=== PATIENT | male | born 1940 | race Caucasian/White ===

== ENCOUNTER → 2021-05-25 | Outpatient (CLI) | payer MEDICARE, OTHER ==
--- NOTE | 2021-05-25 09:12 | NM ---
EXAMINATION TYPE: NM pul vent and perfuse DATE OF EXAM: 05/25/2021 COMPARISON: NONE HISTORY: Shortness of breath. TECHNIQUE: Utilizing inhalation of 67.2 mCi Tc 99m DTPA aerosol and intravenous injection of 5.5 mCi of Tc 99m MAA, ventilation and perfusion images are acquired post injection in multiple projections. FINDINGS: Some scattered small matching defects. There is no evidence of mismatched defects. IMPRESSION: Low scintigraphic evidence for acute pulmonary embolism
== END | disposition home or self-care (01) ==
LOC: RADNMMAIN 07:27
PROVIDERS: ATTEND Family Medicine
DX: I26.99 Other pulmonary embolism without acute cor pulmonale (principal)
CPT/HCPCS: 78582; A9540; A9567

== ENCOUNTER 2021-07-24 10:24 | Inpatient (IN) | payer MEDICARE, OTHER ==
[2021-07-24 11:39] LABS: Basophils % (A) 0 %; Eosinophils # (A) 0.2 k/uL (0-0.7); Eosinophils % (A) 2 %; HCT 51.6 % (39.0-53.0); HGB 16.7 gm/dL (13.0-17.5); Lymphocytes % (A) 12 %; MCH 34.9 pg (25.0-35.0); MCHC 32.3 g/dL (31.0-37.0); Macrocytosis Marked; Mean Platelet Volume 8.3; Monocytes # (A) 0.3 k/uL (0-1.0); Monocytes % (A) 4 %; Neutrophils # (A) 6.9 k/uL (1.3-7.7); Neutrophils % (A) 81 %; Platelet Count 142 k/uL (150-450); RBC 4.77 m/uL (4.30-5.90); RDW 15.1 % (11.5-15.5); WBC 8.5 k/uL (3.8-10.6)
[2021-07-24 11:54] LABS: Calcium 9.6 mg/dL (8.4-10.2); Potassium 4.1 mmol/L (3.5-5.1); Total Bilirubin 1.1 mg/dL (0.2-1.3); Total Protein 7.5 g/dL (6.3-8.2)
[2021-07-24] MEDS ORDERED: LORazepam 2 MG/ML INJ IV STA (12:41)
--- NOTE | 2021-07-24 13:00 | ED ---
General Adult HPI - General Chief complaint: Recheck/Abnormal Lab/Rx Stated complaint: Abd labs Time Seen by Provider: 07/24/21 12:00 Source: patient, family, RN notes reviewed, old records reviewed Mode of arrival: wheelchair Limitations: no limitations - History of Present Illness Initial comments: This is a 81-year-old male who presents emergency Department because his doctor called him and told him he had some abnormal liver and abnormal kidney labs. Patient states she's got cancer of the tongue and he states he was post have surgery but he is too sick to get it. Patient states he has no symptoms today. Patient denies any fever chills or cough per patient denies any abdominal pain. Patient has nausea vomiting. Patient denies any chest pain palpitations difficulty breathing or shortness of breath. Patient denies any dysuria hematuria urinary frequency. Patient denies any headache patient denies numbness weakness per patient denies any lightheadedness or dizziness. - Related Data Home Medications Medication Instructions Recorded Confirmed Acetaminophen [Tylenol 8 Hour] 1,300 mg PO BID 07/24/21 07/24/21 Albuterol Sulfate [Proair Hfa] 2 puff INHALATION RT-Q4H PRN 07/24/21 07/24/21 Allopurinol [Zyloprim] 100 mg PO BID 07/24/21 07/24/21 Aspirin EC [Ecotrin Low Dose] 81 mg PO DAILY 07/24/21 07/24/21 Atorvastatin [Lipitor] 40 mg PO DAILY 07/24/21 07/24/21 Cyanocobalamin [Vitamin B-12] 500 mcg PO DAILY 07/24/21 07/24/21 Dorzolamide 2% [Trusopt 2%] 1 drop BOTH EYES BID 07/24/21 07/24/21 Fluconazole [Diflucan] 100 mg PO DAILY 07/24/21 07/24/21 Furosemide [Lasix] 40 mg PO BID 07/24/21 07/24/21 Latanoprost/Pf [Latanoprost 0.005% 1 drop BOTH EYES HS 07/24/21 07/24/21 Eye Drop] Magnesium Oxide 400 mg PO HS 07/24/21 07/24/21 Metoprolol Succinate (ER) [Toprol 100 mg PO DAILY 07/24/21 07/24/21 Xl] Midodrine HCl [ProAmatine] 10 mg PO TID 07/24/21 07/24/21 Multivitamins, Thera [Multivitamin 1 tab PO DAILY 07/24/21 07/24/21 (formulary)] [place]-3 Fatty Acids/Fish Oil [Fish 1 cap PO DAILY 07/24/21 07/24/21 Oil 1,000 mg Softgel] Pantoprazole [Protonix] 40 mg PO BID 07/24/21 07/24/21 Umeclidinium Brm/Vilanterol Tr 1 puff INHALATION RT-DAILY 07/24/21 07/24/21 [Anoro Ellipta 62.5-25 Mcg INH] metOLazone [Zaroxolyn] 2.5 mg PO MOTH 07/24/21 07/24/21 Allergies Allergy/AdvReac Type Severity Reaction Status Date / Time Penicillins Allergy Rash/Hives Verified 07/24/21 10:55 shellfish derived [Shellfish] Allergy Nausea & Verified 07/24/21 10:56 Vomiting Review of Systems ROS Statement: Those systems with pertinent positive or pertinent negative responses have been documented in the HPI. ROS Other: All systems not noted in ROS Statement are negative. Past Medical History Past Medical History: Chest Pain / Angina, COPD, Diabetes Mellitus, Hypertension History of Any Multi-Drug Resistant Organisms: None Reported Past Surgical History: Orthopedic Surgery Additional Past Surgical History / Comment(s): colostomy, TURP, cataracts Past Psychological History: No Psychological Hx Reported Smoking Status: Never smoker Past Alcohol Use History: None Reported Past Drug Use History: None Reported General Exam - General Exam Comments Initial Comments: GENERAL: Patient is well-developed and well-nourished. Patient is nontoxic and well- hydrated and is in no acute distress. ENT: Neck is soft and supple. No significant lymphadenopathy is noted. Oropharynx is clear. Moist mucous membranes. Neck has full range of motion without eliciting any pain. EYES: The sclera were anicteric and conjunctiva were pink and moist. Extraocular movements were intact and pupils were equal round and reactive to light. Eyelids were unremarkable. PULMONARY: Unlabored respirations. Good breath sounds bilaterally. No audible rales rhonchi or wheezing was noted. CARDIOVASCULAR: There is a regular rate and rhythm without any murmurs gallops or rubs. ABDOMEN: Soft and nontender with normal bowel sounds. SKIN: Skin is clear with no lesions or rashes and otherwise unremarkable. NEUROLOGIC: Patient is alert and oriented x3. Cranial nerves II through XII are grossly intact. Motor and sensory are also intact. Normal speech, volume and content. Symmetrical smile. MUSCULOSKELETAL: Normal extremities with adequate strength and full range of motion. LYMPHATICS: No significant lymphadenopathy is noted PSYCHIATRIC: Normal psychiatric evaluation. Limitations: no limitations Course Vital Signs 07/24/21 10:48 Temperature 98.2 F Pulse Rate 107 H Respiratory 18 Rate Blood Pressure 116/67 O2 Sat by Pulse 96 Oximetry Medical Decision Making - Medical Decision Making EKG shows sinus rhythm at 96 bpm NV interval 290 QRS is 85 Q-T interval like it is 294 QTC is 347. Patient's EKG shows ST segment depression V4 V5 and V6 with T-wave inversions in the same leads. Patient also has T-wave inversions in inferior leads II, III, and F aVF. I spoke with Dr. centeno about the patient and the elevated troponin he agreed to see the patient on consult however he did not think there was much close to do at this point. I started the patient on heparin. Chest x-ray shows no acute abnormality. I spoke with Dr. Morejon she agreed to admit the patient admitted the patient wrote admitting orders. - Lab Data Result diagrams: 07/24/21 11:06 07/24/21 11:06 Lab Results 07/24/21 07/24/21 07/24/21 Range/Units 11:06 11:06 11:06 WBC 8.5 (3.8-10.6) k/uL RBC 4.77 (4.30-5.90) m/uL Hgb 16.7 (13.0-17.5) gm/dL Hct 51.6 (39.0-53.0) % MCV 108.0 H (80.0-100.0) fL MCH 34.9 (25.0-35.0) pg MCHC 32.3 (31.0-37.0) g/dL RDW 15.1 (11.5-15.5) % Plt Count 142 L (150-450) k/uL MPV 8.3 Neutrophils % 81 % Lymphocytes % 12 % Monocytes % 4 % Eosinophils % 2 % Basophils % 0 % Neutrophils # 6.9 (1.3-7.7) k/uL Lymphocytes # 1.0 (1.0-4.8) k/uL Monocytes # 0.3 (0-1.0) k/uL Eosinophils # 0.2 (0-0.7) k/uL Basophils # 0.0 (0-0.2) k/uL Manual Slide Review Performed Macrocytosis Marked A PT (9.0-12.0) sec INR (<1.2) APTT (22.0-30.0) sec Sodium 139 (137-145) mmol/L Potassium 4.1 (3.5-5.1) mmol/L Chloride 104 (98-107) mmol/L Carbon Dioxide 22 (22-30) mmol/L Anion Gap 13 mmol/L BUN 42 H (9-20) mg/dL Creatinine 1.58 H (0.66-1.25) mg/dL Est GFR (CKD-EPI)AfAm 48 (>60 ml/min/1.73 sqM) Est GFR (CKD-EPI)NonAf 41 (>60 ml/min/1.73 sqM) Glucose 158 H (74-99) mg/dL Calcium 9.6 (8.4-10.2) mg/dL Total Bilirubin 1.1 (0.2-1.3) mg/dL AST 56 (17-59) U/L ALT 107 H (4-49) U/L Alkaline Phosphatase 104 (38-126) U/L Troponin I 0.238 H* (0.000-0.034) ng/mL Total Protein 7.5 (6.3-8.2) g/dL Albumin 4.0 (3.5-5.0) g/dL Lipase 368 H (23-300) U/L 07/24/21 Range/Units 13:26 WBC (3.8-10.6) k/uL RBC (4.30-5.90) m/uL Hgb (13.0-17.5) gm/dL Hct (39.0-53.0) % MCV (80.0-100.0) fL MCH (25.0-35.0) pg MCHC (31.0-37.0) g/dL RDW (11.5-15.5) % Plt Count (150-450) k/uL MPV Neutrophils % % Lymphocytes % % Monocytes % % Eosinophils % % Basophils % % Neutrophils # (1.3-7.7) k/uL Lymphocytes # (1.0-4.8) k/uL Monocytes # (0-1.0) k/uL Eosinophils # (0-0.7) k/uL Basophils # (0-0.2) k/uL Manual Slide Review Macrocytosis PT 11.0 (9.0-12.0) sec INR 1.0 (<1.2) APTT 23.6 (22.0-30.0) sec Sodium (137-145) mmol/L Potassium (3.5-5.1) mmol/L Chloride (98-107) mmol/L Carbon Dioxide (22-30) mmol/L Anion Gap mmol/L BUN (9-20) mg/dL Creatinine (0.66-1.25) mg/dL Est GFR (CKD-EPI)AfAm (>60 ml/min/1.73 sqM) Est GFR (CKD-EPI)NonAf (>60 ml/min/1.73 sqM) Glucose (74-99) mg/dL Calcium (8.4-10.2) mg/dL Total Bilirubin (0.2-1.3) mg/dL AST (17-59) U/L ALT (4-49) U/L Alkaline Phosphatase (38-126) U/L Troponin I (0.000-0.034) ng/mL Total Protein (6.3-8.2) g/dL Albumin (3.5-5.0) g/dL Lipase (23-300) U/L Critical Care Time Critical Care Time: Yes Total Critical Care Time: 35 Disposition Clinical Impression: Non-STEMI (non-ST elevated myocardial infarction) Disposition: ADMITTED IP TO THIS [facility] Time of Disposition: 13:56
[2021-07-24] MEDS ORDERED: HEPARIN SODIUM 1,000 UN/ML (10ML VL) IV ONE (13:16)
--- NOTE | 2021-07-24 13:28 | XR ---
EXAMINATION TYPE: XR chest 2V DATE OF EXAM: 07/24/2021 COMPARISON: 05/24/2021 HISTORY: 81 year-old male shortness of breath, difficulty breathing TECHNIQUE: Frontal and lateral views FINDINGS: Heart borderline to mildly enlarged. Mild hyperinflation. Interstitial prominence. Overall interstiti al changes show improvement from prior. Residual Periphery of the right midlung. No sizable pleural effusion. Left base underpenetrated and not well a ssessed. Right-sided rotator cuff arthropathy. Chronic full-thickness rotator cuff tear on the left. IMPRESSION: 1. Borderline to mild cardiomegaly. 2. Suspect background COPD. 3. Interstitial changes show some improvement from prior exam. Correlate to exclude fluid overload st ate and for possible bronchitis or chronic asthma. 4. Some patchy scarring versus infiltrate remains at the right mid lung.
[2021-07-24] MEDS ORDERED: HEPARIN SOD,PORK IN 0.45% NACL 25,000 UNIT in 0.45% NACL 1 250ML.BAG IV SCH (13:30)
[2021-07-24 13:45] LABS: Partial Thromboplastin Time 23.6 sec (22.0-30.0)
[2021-07-24] MEDS ORDERED: NITROGLYCERIN SL TABS 0.4 MG TAB SUBLINGUAL PRN (13:56)
[2021-07-24] MEDS ORDERED: ALBUTEROL NEBULIZED 2.5 MG/3 ML INHALATION PRN (15:02)
--- NOTE | 2021-07-24 15:28 | P.HPIM ---
History of Present Illness H&P Date: 07/24/21 81 years old male patient of Dr. Patrick with past medical history of hypertension, COPD on 2 L of oxygen, type 2 diabetes, recent diagnosis of tongue cancer currently in process of getting treatment, history of bowel obstruction status post colostomy 3 years ago comes in with abnormal labs. She was called by the primary care physician to determine to the ER for worsening kidney function. Patient denies any dysuria or increased frequency or hematuria. 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 Patient denies any decrease in urination. He denies any dizziness, chest pain, fever or chills. He does endorse shortness of breath on exertion U weeks. Patient had outpatient workup including a VQ scan which had low probability of pulmonary embolism. Ago. He also underwent stress test 4-[address] Horne for possible tongue resection for his tongue cancer. On evaluation in the ER he was noted to have troponin 0.238, sodium 139 potassium 4.1 bicarb 22 BUN 42 creatinine 1.58 liver enzymes are normal lipase mildly elevated at 368 INR normal WBC 8.5 MCV 108 platelets of 142. Hold most pronounced in the V4 V5 and V6. Cardiology consult placed. Patient will be initiated on heparin drip. Retroperitoneal ultrasound ordered. ROS Constitutional: Denies chills, Denies fever, endorses weakness and lethargy Eyes: denies decreased vision, denies diplopia, denies discharge, denies pain Ears: deny: decreased hearing Ears, nose, mouth and throat: Denies dental pain, Denies headache, Denies nasal discharge, Denies nose pain Cardiovascular: Denies chest pain, endorses decreased exercise tolerance, Denies edema, Denies high blood pressure, Denies irregular heart beat, Denies palpitations, Denies paroxysmal nocturnal dyspnea, Denies rapid heart beat, endorses shortness of breath Respiratory: Denies congestion, Denies cough, Denies cough with sputum, endorses dyspnea on exertion Denies home oxygen, Denies wheezing Gastrointestinal: Denies abdominal pain, Denies change in bowel habits, Denies coffee ground emesis, Denies early satiety, Denies excessive gas, Denies heartburn, Denies hematemesis, Denies hematochezia, Denies loss of appetite, Denies nausea, Denies vomiting Genitourinary: Denies dysuria, Denies flank pain, Denies kidney stones, Denies menorrhagia, Denies urgency, Denies urinary frequency Musculoskeletal: Denies gait dysfunction, Denies limitation of motion, Denies morning stiffness, Denies muscle cramps Integumentary: Denies rash, Denies wounds, Denies brittle nails, Denies change in hair/nails, Denies darkening of skin Neurological: Denies balance difficulties, Denies change in speech, Denies double vision, Denies gait dysfunction, Denies loss of vision, Denies motor disturbance, Denies numbness, Denies paralysis, Denies paresthesias, Denies seizures Psychiatric: Denies anxiety, Denies depression Endocrine: Denies excessive sweating, Denies excessive thirst, Denies high blood sugars, Denies palpitations Hematologic/Lymphatic: Denies easy bruising, Denies lymphadenopathy Social history Nonsmoker nondrinker no illicit drug use no marijuana use Family history Father at 91 of old age Mother had 65 from diabetes related complications 1 brother at 90 no medical no known medical reasons Children are healthy 4 daughters with no malignant significant medical problems Physical exam - Constitutional General appearance: cooperative, no acute distress, obese mole on forehead , dark 1 cm in size , - EENT Eyes: anicteric sclerae, PERRLA, normal appearance ENT: hearing grossly normal - Neck Neck: no lymphadenopathy, normal ROM, no other, no rigidity, no stridor, no thyromegaly - Respiratory Respiratory: bilateral: CTA, negative: diminished, dullness, rales, rhonchi - Cardiovascular Rhythm Irregularly irregular Heart s: normal: S1, S2 Abnormal Heart Sounds: no systolic murmur, no diastolic murmur, no rub, no S3 Gallop, no S4 Gallop, no click, no other - Gastrointestinal General gastrointestinal: normal bowel sounds, soft Colostomy in the right lower quadrant with stool output - Integumentary Integumentary: no rash - Neurologic NeurologicNo gross motor sensory deficit - Musculoskeletal Musculoskeletal: ga not assessed , strength equal bilaterally - Psychiatric Psychiatric: A&O x's 3, appropriate affect Assessment and plan #1 acute troponin elevation with EKG suggestive of this to depression and T wave changes. Initiate patient on heparin drip. Cardiology consulted. Resume medication including metoprolol succinate 100 mg by mouth daily. Aspirin initiate 325 mg by mouth daily #2 acute kidney injury over chronic kidney disease stage III. Retroperitoneal ultrasound ordered. Likely secondary to diabetes. Monitor urine output. Avoid nephrotoxic agent. Hold metolazone and Lasix #3 bowel obstruction status post colostomy. Continue to monitor output. No melena or dark stools noted. Hemoglobin stable #4 COPD not in exacerbation on 2 L oxygen. Chest x-ray negative for any acute abnormality. Continue albuterol and a normal relative daily #5 tongue cancer, follow surgery and oncology plan for tongue resection. PET scan completed with no other metastasis from the cancer. Follow outpatient with oncology #6 hyperlipidemia continue Lipitor at 40 mg by mouth daily #7 GERD continue Protonix 40 twice a day #8 gout continue allopurinol 100 twice a day #9 CODE STATUS full code #10 DVT prophylaxis on heparin drip #11 disposition patient need at least 1-2 inpatient nights for stabilization. Past Medical History Past Medical History: Chest Pain / Angina, COPD, Diabetes Mellitus, Hypertension History of Any Multi-Drug Resistant Organisms: None Reported Past Surgical History: Orthopedic Surgery Additional Past Surgical History / Comment(s): colostomy, TURP, cataracts Past Psychological History: No Psychological Hx Reported Smoking Status: Never smoker Past Alcohol Use History: None Reported Past Drug Use History: None Reported Medications and Allergies Home Medications Medication Instructions Recorded Confirmed Type Acetaminophen [Tylenol 8 Hour] 1,300 mg PO BID 07/24/21 07/24/21 History Albuterol Sulfate [Proair Hfa] 2 puff INHALATION RT-Q4H PRN 07/24/21 07/24/21 History Allopurinol [Zyloprim] 100 mg PO BID 07/24/21 07/24/21 History Aspirin EC [Ecotrin Low Dose] 81 mg PO DAILY 07/24/21 07/24/21 History Atorvastatin [Lipitor] 40 mg PO DAILY 07/24/21 07/24/21 History Cyanocobalamin [Vitamin B-12] 500 mcg PO DAILY 07/24/21 07/24/21 History Dorzolamide 2% [Trusopt 2%] 1 drop BOTH EYES BID 07/24/21 07/24/21 History Fluconazole [Diflucan] 100 mg PO DAILY 07/24/21 07/24/21 History Furosemide [Lasix] 40 mg PO BID 07/24/21 07/24/21 History Latanoprost/Pf [Latanoprost 0.005% 1 drop BOTH EYES HS 07/24/21 07/24/21 History Eye Drop] Magnesium Oxide 400 mg PO HS 07/24/21 07/24/21 History Metoprolol Succinate (ER) [Toprol 100 mg PO DAILY 07/24/21 07/24/21 History Xl] Midodrine HCl [ProAmatine] 10 mg PO TID 07/24/21 07/24/21 History Multivitamins, Thera [Multivitamin 1 tab PO DAILY 07/24/21 07/24/21 History (formulary)] [place]-3 Fatty Acids/Fish Oil [Fish 1 cap PO DAILY 07/24/21 07/24/21 History Oil 1,000 mg Softgel] Pantoprazole [Protonix] 40 mg PO BID 07/24/21 07/24/21 History Umeclidinium Brm/Vilanterol Tr 1 puff INHALATION RT-DAILY 07/24/21 07/24/21 History [Anoro Ellipta 62.5-25 Mcg INH] metOLazone [Zaroxolyn] 2.5 mg PO MOTH 07/24/21 07/24/21 History Allergies Allergy/AdvReac Type Severity Reaction Status Date / Time Penicillins Allergy Rash/Hives Verified 07/24/21 10:55 shellfish derived [Shellfish] Allergy Nausea & Verified 07/24/21 10:56 Vomiting Physical Exam Vitals: Vital Signs Temp Pulse Resp BP Pulse Ox 07/24/21 10:48 98.2 F 107 H 18 116/67 96 Intake and Output 07/24/21 07/24/21 07/24/21 06:59 14:59 22:59 Other: Weight 93.894 kg Results CBC & Chem 7: 07/24/21 11:06 07/24/21 11:06 Labs: Abnormal Lab Results - Last 24 Hours (Table) 07/24/21 07/24/21 07/24/21 Range/Units 11:06 11:06 11:06 MCV 108.0 H (80.0-100.0) fL Plt Count 142 L (150-450) k/uL Macrocytosis Marked A BUN 42 H (9-20) mg/dL Creatinine 1.58 H (0.66-1.25) mg/dL Glucose 158 H (74-99) mg/dL ALT 107 H (4-49) U/L Troponin I 0.238 H* (0.000-0.034) ng/mL Lipase 368 H (23-300) U/L
[2021-07-24] MEDS ORDERED: metOLazone 2.5 MG TAB PO SCH (15:30)
--- NOTE | 2021-07-24 16:20 | US ---
EXAMINATION TYPE: US renals and bladder DATE OF EXAM: 07/24/2021 COMPARISON: NONE CLINICAL HISTORY: GENNARO on ckd. abn labs, no symptoms EXAM MEASUREMENTS: Right Kidney: 13.5 x 5.2 x 5.7 cm Left Kidney: 12.8 x 4.9 x 5.7 cm Right Kidney: inferior pole cyst 2.4 x 2.9 x 1.5cm Left Kidney: No hydronephrosis or masses seen Bladder: not fully distended There is no evidence for hydronephrosis at this point in time. No nephrolithiasis is seen. No raj s are identified. Difficult to exclude some low-level internal echoes within the urinary bladder. Cor tical measured differentiation is maintained. IMPRESSION: Probable cyst lower pole right kidney, not clearly simple cyst, consider follow-up. Difficult to excl ude debris within the urinary bladder, correlate with urinalysis
[2021-07-24] MEDS: FUROSEMIDE 40 MG TAB PO SCH (16:25)
[2021-07-24] MEDS: IPRATROPIUM 0.5 MG/2.5 ML NEBU INHALATION SCH ×2 (16:48→20:43)
[2021-07-24] MEDS: NITROGLYCERIN OINT 1 INCH/GM PACKET TOPICAL SCH (17:48)
[2021-07-24] MEDS: PANTOPRAZOLE 40 MG TABLET PO SCH (17:48)
[2021-07-24] MEDS: MIDODRINE 5 MG TAB PO SCH (17:48)
[2021-07-24 20:16] LABS: Glucose,Whole Blood 165 mg/dL (75-99)
[2021-07-24] MEDS ORDERED: ACETAMINOPHEN TAB 500 MG TAB PO PRN (21:00)
[2021-07-24] MEDS ORDERED: LATANOPROST 0.005% OPHTH DROPS 2.5 ML BTL BOTH EYES SCH (21:00)
[2021-07-24] MEDS: allopurinoL 100 MG TAB PO SCH (21:37)
[2021-07-24] MEDS: MAGNESIUM OXIDE 400 MG TAB PO SCH ×2 (21:37→21:43)
[2021-07-24] MEDS: DORZOLAMIDE HCL 2% DROPS 10 ML BTL BOTH EYES SCH (21:38)
[2021-07-25] MEDS: NITROGLYCERIN OINT 1 INCH/GM PACKET TOPICAL SCH ×3 (00:10→12:26)
[2021-07-25 06:14] LABS: Glucose,Whole Blood 106 mg/dL (75-99)
[2021-07-25] MEDS: PANTOPRAZOLE 40 MG TABLET PO SCH (06:47)
[2021-07-25] MEDS: MIDODRINE 5 MG TAB PO SCH ×2 (06:47→12:29)
[2021-07-25] MEDS ORDERED: FORMOTEROL FUMARATE 20 MCG/2 ML NEBU INHALATION SCH (08:00)
[2021-07-25 08:26] LABS: Albumin 3.5 g/dL (3.5-5.0); Calcium 9.3 mg/dL (8.4-10.2); Total Bilirubin 1.2 mg/dL (0.2-1.3); Total Protein 6.9 g/dL (6.3-8.2)
[2021-07-25 08:29] LABS: Potassium 3.9 mmol/L (3.5-5.1)
[2021-07-25 08:54] VITALS: TEMP 98.1
[2021-07-25] MEDS ORDERED: NON FORMULARY DRUG (Omega-3 Fatty Acids/Fish Oil [Fish Oil 1,000 Mg Softgel] 1 EACH Capsul PO SCH (09:00)
[2021-07-25] MEDS ORDERED: NON FORMULARY DRUG (Aspirin Ec 81 MG Tablet) PO SCH (09:00)
[2021-07-25] MEDS ORDERED: METOPROLOL SUCCINATE (ER) 100 MG TAB.ER.24H PO SCH (09:00)
[2021-07-25] MEDS ORDERED: MULTIVITAMINS, THERA 1 EACH TAB PO SCH (09:00)
[2021-07-25] MEDS ORDERED: CYANOCOBALAMIN 500 MCG TAB PO SCH (09:00)
[2021-07-25] MEDS ORDERED: ATORVASTATIN 40 MG TAB PO SCH (09:00)
[2021-07-25] MEDS ORDERED: ASPIRIN 325 MG TAB PO SCH (09:00)
[2021-07-25] MEDS: allopurinoL 100 MG TAB PO SCH (09:05)
[2021-07-25] MEDS: FUROSEMIDE 40 MG TAB PO SCH (09:05)
[2021-07-25] MEDS: IPRATROPIUM 0.5 MG/2.5 ML NEBU INHALATION SCH ×3 (09:09→16:17)
[2021-07-25] MEDS: DORZOLAMIDE HCL 2% DROPS 10 ML BTL BOTH EYES SCH (09:11)
[2021-07-25 11:52] LABS: Glucose,Whole Blood 107 mg/dL (75-99)
--- NOTE | 2021-07-25 11:59 | P.CRDCN ---
History of Present Illness History of present illness: HISTORY OF PRESENTING ILLNESS This is a pleasant 81-year-old male past medical history significant for COPD, chronic hypoxic respiratory failure, hypertension, dyslipidemia, gout tobacco use. He follows in the office with Dr. Moody. We have been asked to see in consultation for elevated troponin. Patient presents emergency department stating that his primary care provider Dr. Patrick told him to come to the ER due to his abnormal liver and kidney function labs. He has no complaints and no symptoms. Overall he feels well. He denies any chest pain, shortness of breath, lightheadedness, dizziness, palpitations, syncope or near syncope. He denies any symptoms of orthopnea or PND. She denies any diaphoresis, nausea, vomiting, abdominal pain, fever, cough, chills. DIAGNOSTICS EKG reviewed with Dr. Moody reveals sinus rhythm, heart rate 96, T wave inversions in inferior leads and V3 through V6. Per Dr. Moody chronic changes. Echocardiogram in the office 05/19/2021 revealed normal LVEF, severe pulmonary hypertension severe tricuspid regurgitation, dilated RV Lexiscan stress test 05/2021 was technically difficult study. Telemetry tracings indicate sinus mechanism Chest xray no acute cardiopulmonary process, background COPD, interstitial changes show some improvement from prior exam. Some patchy scarring versus alternate right mid lung Laboratory reviewed, troponin 0.23, 0.27, 0.29, sodium 135, potassium 3.9, BUN 38, serum creatinine 1.5 Current cardiac medications include metoprolol succinate 100 mg daily, midodrine, metolazone, aspirin 81 mg daily, Lasix 40 mg twice a day, atorvastatin 40 mg daily REVIEW OF SYSTEMS At the time of my exam: CONSTITUTIONAL: Denies fever or chills. CARDIOVASCULAR: Denies chest pain, shortness of breath, orthopnea, PND or palpitations. RESPIRATORY: Denies cough. GASTROINTESTINAL: Denies abdominal pain, diarrhea, constipation, nausea or vomiting. MUSCULOSKELETAL: Denies myalgias. NEUROLOGIC: Denies numbness, tingling, headacbe or weakness. ENDOCRINE: Denies fatigue, weight change, polydipsia or polyurina. GENITOURINARY: Denies burning, hematuria or urgency with micturation. HEMATOLOGIC: Denies history of anemia or bleeding. PHYSICAL EXAMINATION Vitals reviewed. CONSTITUTIONAL: No apparent distress. HEENT: Head is normocephalic. Pupils are equal, round. Sclerae anicteric. Mucous membranes of the mouth are moist. No JVD. No carotid bruit. CHEST EXAMINATION: Lungs are clear to auscultation. No chest wall tenderness is noted on palpation or with deep breathing. HEART EXAMINATION: Regular rate and rhythm. S1, S2 heard. Systolic murmur noted. ABDOMEN: Soft, nontender. Positive bowel sounds. EXTREMITIES: 2+ peripheral pulses, no lower extremity edema and no calf tenderness. NEUROLOGIC EXAMINATION: Patient is awake, alert and oriented x3. ASSESSMENT Elevated troponin, likely due to acute on chronic kidney disease, no evidence of acute coronary syndrome COPD Hypertension Dyslipidemia History of gout PLAN EKG and troponins reviewed with Dr. Moody. Patient asymptomatic, hemodynamically stable, no evidence of acute coronary syndrome at this time. No need to repeat Echo with recent in the office on 05/2021 as noted above. Continue home cardiac medications. From a cardiology perspective, no further inpatient workup at this time. Follow up outpatient with Dr. Moody. Nurse practitioner note has been reviewed by physician. Signing provider agrees with the documented findings, assessment, and plan of care. 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 History of Any Multi-Drug Resistant Organisms: None Reported Past Surgical History: Bowel Resection, Joint Replacement, Prostate Surgery Additional Past Surgical History / Comment(s): Colostomy, TURP, R total knee arthroplasty, bilateral cataract removals/lens implants. Past Anesthesia/Blood Transfusion Reactions: No Reported Reaction Smoking Status: Former smoker - Past Family History Father Additional Family Medical History / Comment(s): Father lived to be 91 yrs old. He had a pacer. Mother Family Medical History: Diabetes Mellitus Additional Family Medical History / Comment(s): kidney cancer Medications and Allergies Home Medications Medication Instructions Recorded Confirmed Type Acetaminophen [Tylenol 8 Hour] 1,300 mg PO BID 07/24/21 07/24/21 History Albuterol Sulfate [Proair Hfa] 2 puff INHALATION RT-Q4H PRN 07/24/21 07/24/21 History Allopurinol [Zyloprim] 100 mg PO BID 07/24/21 07/24/21 History Aspirin EC [Ecotrin Low Dose] 81 mg PO DAILY 07/24/21 07/24/21 History Atorvastatin [Lipitor] 40 mg PO DAILY 07/24/21 07/24/21 History Cyanocobalamin [Vitamin B-12] 500 mcg PO DAILY 07/24/21 07/24/21 History Dorzolamide 2% [Trusopt 2%] 1 drop BOTH EYES BID 07/24/21 07/24/21 History Fluconazole [Diflucan] 100 mg PO DAILY 07/24/21 07/24/21 History Furosemide [Lasix] 40 mg PO BID 07/24/21 07/24/21 History Latanoprost/Pf [Latanoprost 0.005% 1 drop BOTH EYES HS 07/24/21 07/24/21 History Eye Drop] Magnesium Oxide 400 mg PO HS 07/24/21 07/24/21 History Metoprolol Succinate (ER) [Toprol 100 mg PO DAILY 07/24/21 07/24/21 History Xl] Midodrine HCl [ProAmatine] 10 mg PO TID 07/24/21 07/24/21 History Multivitamins, Thera [Multivitamin 1 tab PO DAILY 07/24/21 07/24/21 History (formulary)] [place]-3 Fatty Acids/Fish Oil [Fish 1 cap PO DAILY 07/24/21 07/24/21 History Oil 1,000 mg Softgel] Pantoprazole [Protonix] 40 mg PO BID 07/24/21 07/24/21 History Umeclidinium Brm/Vilanterol Tr 1 puff INHALATION RT-DAILY 07/24/21 07/24/21 History [Anoro Ellipta 62.5-25 Mcg INH] metOLazone [Zaroxolyn] 2.5 mg PO MOTH 07/24/21 07/24/21 History Allergies Allergy/AdvReac Type Severity Reaction Status Date / Time Penicillins Allergy Rash/Hives Verified 07/24/21 10:55 shellfish derived [Shellfish] Allergy Nausea & Verified 07/24/21 10:56 Vomiting Physical Exam Vitals: Vital Signs Temp Pulse Pulse Resp BP BP Pulse Ox 07/25/21 09:24 84 07/25/21 09:09 88 07/25/21 08:52 98.1 F 110 H 16 101/65 93 L 07/25/21 06:46 93/58 07/25/21 04:00 98.4 F 106 H 18 101/65 93 L 07/24/21 23:33 98.0 F 104 H 16 94/55 94 L 07/24/21 19:57 97.5 F L 07/24/21 19:49 100 18 100/63 96 07/24/21 18:35 88 16 106/71 96 07/24/21 17:05 98.4 F 86 18 116/70 98 07/24/21 16:48 86 07/24/21 15:17 96 18 109/63 95 Intake and Output 07/24/21 07/25/21 07/25/21 22:59 06:59 14:59 Output Total 700 600 250 Balance -700 -600 -250 Output: Gastric Drainage 200 Urine 500 300 250 Stool 300 Other: Weight 93.894 kg 89 kg Results 07/24/21 11:06 07/25/21 06:09 Cardiac Enzymes 07/24/21 07/24/21 07/24/21 Range/Units 11:06 11:06 14:53 AST 56 (17-59) U/L Troponin I 0.238 H* 0.275 H* (0.000-0.034) ng/mL 07/24/21 07/25/21 Range/Units 18:13 06:09 AST 63 H (17-59) U/L Troponin I 0.294 H* (0.000-0.034) ng/mL Coagulation 07/24/21 07/24/21 07/25/21 Range/Units 13:26 21:20 05:53 PT 11.0 (9.0-12.0) sec APTT 23.6 61.7 H 59.7 H (22.0-30.0) sec CBC 07/24/21 Range/Units 11:06 WBC 8.5 (3.8-10.6) k/uL RBC 4.77 (4.30-5.90) m/uL Hgb 16.7 (13.0-17.5) gm/dL Hct 51.6 (39.0-53.0) % Plt Count 142 L (150-450) k/uL Comprehensive Metabolic Panel 07/24/21 07/25/21 Range/Units 11:06 06:09 Sodium 139 135 L (137-145) mmol/L Potassium 4.1 3.9 (3.5-5.1) mmol/L Chloride 104 104 (98-107) mmol/L Carbon Dioxide 22 23 (22-30) mmol/L BUN 42 H 38 H (9-20) mg/dL Creatinine 1.58 H 1.53 H (0.66-1.25) mg/dL Glucose 158 H 111 H (74-99) mg/dL Calcium 9.6 9.3 (8.4-10.2) mg/dL AST 56 63 H (17-59) U/L ALT 107 H 92 H (4-49) U/L Alkaline Phosphatase 104 103 (38-126) U/L Total Protein 7.5 6.9 (6.3-8.2) g/dL Albumin 4.0 3.5 (3.5-5.0) g/dL Current Medications Generic Name Dose Route Start Last Admin Trade Name Freq PRN Reason Stop Dose Admin Acetaminophen 1,000 mg 07/24/21 21:00 Acetaminophen Tab 500 Mg Tab PO BID PRN Pain Albuterol Sulfate 2.5 mg 07/24/21 15:02 Albuterol Nebulized 2.5 Mg/3 Ml INHALATION RT-Q4H PRN Shortness Of Breath Allopurinol 100 mg 07/24/21 21:00 07/25/21 09:05 Allopurinol 100 Mg Tab PO 100 mg BID MARTINA Administration Aspirin 81 mg 07/26/21 09:00 Aspirin 81 Mg PO DAILY MARTINA Atorvastatin Calcium 40 mg 07/25/21 09:00 07/25/21 09:05 Atorvastatin 40 Mg Tab PO 40 mg DAILY MARTINA Administration Cyanocobalamin 500 mcg 07/25/21 09:00 07/25/21 09:06 Cyanocobalamin 500 Mcg Tab PO 500 mcg DAILY MARTINA Administration Dorzolamide HCl 1 drops 07/24/21 21:00 07/25/21 09:11 Dorzolamide Hcl 2% Drops 10 Ml Btl BOTH EYES 1 drops BID MARTINA Administration Formoterol Fumarate 20 mcg 07/25/21 08:00 07/25/21 09:09 Formoterol Fumarate 20 Mcg/2 Ml Nebu INHALATION 20 mcg RT-BID MARTINA Administration Furosemide 40 mg 07/24/21 16:00 07/25/21 09:05 Furosemide 40 Mg Tab PO 40 mg BID@0900,1600 MARTINA Administration Ipratropium [place] 0.5 mg 07/24/21 16:00 07/25/21 09:09 Ipratropium 0.5 Mg/2.5 Ml Nebu INHALATION 0.5 mg RT-QID MARTINA Administration Latanoprost 1 drops 07/24/21 21:00 07/24/21 21:37 Latanoprost 0.005% Ophth Drops 2.5 Ml Btl BOTH EYES 1 drops HS MARTINA Administration Magnesium Oxide 400 mg 07/24/21 21:00 07/24/21 21:43 Magnesium Oxide 400 Mg Tab PO 400 mg HS MARTINA Administration Metolazone 2.5 mg 07/24/21 15:30 07/24/21 16:24 Metolazone 2.5 Mg Tab PO 2.5 mg MOTH MARTINA Administration Metoprolol Succinate 100 mg 07/25/21 09:00 07/25/21 09:05 Metoprolol Succinate (Er) 100 Mg Tab.Er.24h PO 100 mg DAILY MARTINA Administration Midodrine 10 mg 07/24/21 17:30 07/25/21 06:47 Midodrine 5 Mg Tab PO 10 mg AC-TID MARTINA Administration Multivitamins 1 each 07/25/21 09:00 07/25/21 09:05 Multivitamins, Thera 1 Each Tab PO 1 each DAILY MARTINA Administration Nitroglycerin 0.4 mg 07/24/21 13:56 Nitroglycerin Sl Tabs 0.4 Mg Tab SUBLINGUAL Q5M PRN Chest Pain Nitroglycerin 1 inch 07/24/21 18:00 07/25/21 06:09 Nitroglycerin Oint 1 Inch/Gm Packet TOPICAL Not Given Q6HR [facility] Pantoprazole Sodium 40 mg 07/24/21 17:30 07/25/21 06:47 Pantoprazole 40 Mg Tablet PO 40 mg AC-BID MARTINA Administration Intake and Output 07/24/21 07/25/21 07/25/21 22:59 06:59 14:59 Output Total 700 600 250 Balance -700 -600 -250 Output: Gastric Drainage 200 Urine 500 300 250 Stool 300 Other: Weight 93.894 kg 89 kg 07/24/21 11:06 07/25/21 06:09
--- NOTE | 2021-07-25 12:19 | P.DS ---
Providers Date of admission: 07/24/21 13:56 Expected date of discharge: 07/25/21 Attending physician: Aniket Cherry Consults: 07/24/21 13:56 Consult Physician Urgent Consulting Provider: [facility] Consult Reason/Comments: Non-STEMI Do you want consulting provider notified?: Yes Primary care physician: Zainab Patrick [facility] Course: 81 years old male patient of Dr. Patrick with past medical history of hypertension, COPD on 2 L of oxygen, type 2 diabetes, recent diagnosis of tongue cancer currently in process of getting treatment, history of bowel obstruction status post colostomy 3 years ago comes in with abnormal labs. She was called by the primary care physician to determine to the ER for worsening kidney function. Patient denies any dysuria or increased frequency or hematuria. He does have history of chronic kidney disease but has recently moved intolerant has not been seeing any tar man. Patient denies any decrease in urination. He denies any dizziness, chest pain, fever or chills. He does endorse shortness of breath on exertion U weeks. Patient had outpatient workup including a VQ scan which had low probability of pulmonary embolism. Ago. He also underwent stress test 4-[address] Horne for possible tongue resection for his tongue cancer. On evaluation in the ER he was noted to have troponin 0.238, sodium 139 potassium 4.1 bicarb 22 BUN 42 creatinine 1.58 liver enzymes are normal lipase mildly elevated at 368 INR normal WBC 8.5 MCV 108 platelets of 142. Hold most pronounced in the V4 V5 and V6. Cardiology consult placed. Patient will be initiated on heparin drip. Retroperitoneal ultrasound ordered. 07/25: Patient has been seen by cardiology and acute coronary syndrome has been ruled out, recommendations to follow up with Dr. Moody as an outpatient and patient was cleared for discharge. Patient is denying chest pain, shortness of breath, lightheadedness or dizziness, no abdominal pain. No medication changes have been made. Patient will be discharged home today in stable condition DISCHARGE DIAGNOSES #1 acute troponin elevation with EKG suggestive of this to depression and T wave changes acute coronary syndrome ruled out. Troponin is elevated secondary to acute kidney injury. #2 acute kidney injury over chronic kidney disease stage III. #3 bowel obstruction status post colostomy. #4 COPD not in exacerbation #5 tongue cancer, follow surgery and oncology plan for tongue resection. #6 hyperlipidemia #7 GERD #8 gout, chronic DISCHARGE PLAN Home Greater than 35 minutes was utilized and coordinating patient's discharge. Impression and plan of care have been directed as dictated by the signing physician. Dori Carter nurse practitioner acting as scribe for signing physician. Patient Condition at Discharge: Good Plan - Discharge Summary Discharge Rx Participant: No New Discharge Prescriptions: Continue Albuterol Sulfate [Proair Hfa] 2 puff INHALATION RT-Q4H PRN PRN Reason: Shortness Of Breath Multivitamins, Thera [Multivitamin (formulary)] 1 tab PO DAILY Magnesium Oxide 400 mg PO HS Aspirin EC [Ecotrin Low Dose] 81 mg PO DAILY Pantoprazole [Protonix] 40 mg PO BID Metoprolol Succinate (ER) [Toprol XL] 100 mg PO DAILY Allopurinol [Zyloprim] 100 mg PO BID Umeclidinium Brm/Vilanterol Tr [Anoro Ellipta 62.5-25 Mcg INH] 1 puff INHALATION RT-DAILY Atorvastatin [Lipitor] 40 mg PO DAILY [place]-3 Fatty Acids/Fish Oil [Fish Oil 1,000 mg Softgel] 1 cap PO DAILY Latanoprost/Pf [Latanoprost 0.005% Eye Drop] 1 drop BOTH EYES HS Furosemide [Lasix] 40 mg PO BID Dorzolamide 2% [Trusopt 2%] 1 drop BOTH EYES BID Cyanocobalamin [Vitamin B-12] 500 mcg PO DAILY Acetaminophen [Tylenol 8 Hour] 1,300 mg PO BID metOLazone [Zaroxolyn] 2.5 mg PO MOTH Midodrine HCl [ProAmatine] 10 mg PO TID Discontinued Fluconazole [Diflucan] 100 mg PO DAILY Discharge Medication List Acetaminophen [Tylenol 8 Hour] 1,300 mg PO BID 07/24/21 [History] Albuterol Sulfate [Proair Hfa] 2 puff INHALATION RT-Q4H PRN 07/24/21 [History] Allopurinol [Zyloprim] 100 mg PO BID 07/24/21 [History] Aspirin EC [Ecotrin Low Dose] 81 mg PO DAILY 07/24/21 [History] Atorvastatin [Lipitor] 40 mg PO DAILY 07/24/21 [History] Cyanocobalamin [Vitamin B-12] 500 mcg PO DAILY 07/24/21 [History] Dorzolamide 2% [Trusopt 2%] 1 drop BOTH EYES BID 07/24/21 [History] Furosemide [Lasix] 40 mg PO BID 07/24/21 [History] Latanoprost/Pf [Latanoprost 0.005% Eye Drop] 1 drop BOTH EYES HS 07/24/21 [History] Magnesium Oxide 400 mg PO HS 07/24/21 [History] Metoprolol Succinate (ER) [Toprol XL] 100 mg PO DAILY 07/24/21 [History] Midodrine HCl [ProAmatine] 10 mg PO TID 07/24/21 [History] Multivitamins, Thera [Multivitamin (formulary)] 1 tab PO DAILY 07/24/21 [History] [place]-3 Fatty Acids/Fish Oil [Fish Oil 1,000 mg Softgel] 1 cap PO DAILY 07/24/21 [History] Pantoprazole [Protonix] 40 mg PO BID 07/24/21 [History] Umeclidinium Brm/Vilanterol Tr [Anoro Ellipta 62.5-25 Mcg INH] 1 puff INHALATION RT-DAILY 07/24/21 [History] metOLazone [Zaroxolyn] 2.5 mg PO MOTH 07/24/21 [History] Follow up Appointment(s)/Referral(s): Feliz Moody MD [STAFF PHYSICIAN] - 2 Weeks Zainab Patrick MD [Primary Care Provider] - 1 Week ( ) Discharge Disposition: HOME SELF-CARE
[2021-07-25 12:29] VITALS: BP 101/68; PULSE 92; RESP 18
[2021-07-25 17:11] LABS: Chol/HDL Ratio 2.67 Ratio; LDL Cholesterol,Calculated 48.5 mg/dL (0.0-131.0)
[2021-07-26] MEDS ORDERED: ASPIRIN 81 MG PO SCH (09:00)
--- NOTE | 2021-07-26 11:06 | ECHOF ---
Referral Reason:CHF MEASUREMENTS -------- HEIGHT: 165.1 cm WEIGHT: 93.9 kg BP: IVSd: 1.1 cm (0.6 - 1.1) LVIDd: 3.8 cm (3.9 - 5.3) LVPWd: 1.0 cm (0.6 - 1.1) EDV(Teich): 61 ml IVSs: 1.5 cm LVIDs: 2.5 cm LVPWs: 1.5 cm %IVS Thck: 34 % ESV(Teich): 23 ml EF(Teich): 62 % %FS: 33 % SV(Teich): 38 ml LA Diam: 4.6 cm (2.7 - 3.8) RVIDd: 4.1 cm (< 3.3) Ao Diam: 3.9 cm (2.0 - 3.7) AV Cusp: 1.5 cm (1.5 - 2.6) EPSS: 0.6 cm MV E [place]: 0.34 m/s MV DecT: 272 ms MV Dec [place]: 1.2 m/s MV A [place]: 1.01 m/s MV E/A Ratio: 0.33 MV PHT: 79 ms TR Vmax: 4.05 m/s TR maxP.67 mmHg RAP: 15.00 mmHg RVSP: 80.67 mmHg MV EF SLOPE: 50.96 mm/s (70 - 150) MV EXCURSION: 17.01 mm (> 18.000) TAPSE: 13.60 mm FINDINGS -------- Sinus rhythm. This was a techncally difficult study with suboptimal views, , Definity utilized for enhancement of i mages. The left ventricular size is normal. Left ventricular wall thickness is normal. Overall left vent ricular systolic function is mild-moderately impaired with, an EF between 40 - 45 %. The right ventricle is severely enlarged. The right ventricular septal wall is flattened in diastol e and systole which is consistent with right ventricular volume and pressure overload. The left atrium is moderately dilated. The right atrial size is normal. There is mild aortic valve sclerosis. There is no evidence of aortic regurgitation. Mild mitral regurgitation is present. Mild tricuspid regurgitation present. There is severe pulmonary hypertension. The right ventricul ar systolic pressure, as measured by Doppler, is 80.67mmHg. Trace/mild (physiologic) pulmonic regurgitation. There is no pericardial effusion. CONCLUSIONS -------- 1. This was a techncally difficult study with suboptimal views, , Definity utilized for enhancement o f images. 2. The left ventricular size is normal. 3. Left ventricular wall thickness is normal. 4. Overall left ventricular systolic function is mild-moderately impaired with, an EF between 40 - 45 %. 5. The right ventricle is severely enlarged. 6. The right ventricular septal wall is flattened in diastole and systole which is consistent with r ight ventricular volume and pressure overload. 7. The left atrium is moderately dilated. 8. The right atrial size is normal. 9. There is mild aortic valve sclerosis. 10. Mild mitral regurgitation is present. 11. Mild tricuspid regurgitation present. 12. There is severe pulmonary hypertension. 13. The right ventricular systolic pressure, as measured by Doppler, is 80.67mmHg. 14. Trace/mild (physiologic) pulmonic regurgitation. 15. There is no pericardial effusion. SAND CARRIER: Lydia Malin RDCS
== END 2021-07-25 16:08 | disposition home or self-care (01) | DRG 683 ==
LOC: EC 10:24 → 3SCARD 13:56
PROVIDERS: ADMIT Internal Medicine Geriatric Medicine; ATTEND Internal Medicine Geriatric Medicine
DX: N17.9 Acute kidney failure, unspecified (principal); I13.0 Hypertensive heart and chronic kidney disease with heart failure and stage 1 through stage 4 chronic kidney disease, or unspecified chronic kidney disease; J96.11 Chronic respiratory failure with hypoxia; R77.8 Other specified abnormalities of plasma proteins; C02.9 Malignant neoplasm of tongue, unspecified; N18.30 Chronic kidney disease, stage 3 unspecified; E11.22 Type 2 diabetes mellitus with diabetic chronic kidney disease; E78.5 Hyperlipidemia, unspecified; I50.9 Heart failure, unspecified; J44.9 Chronic obstructive pulmonary disease, unspecified; K21.9 Gastro-esophageal reflux disease without esophagitis; M1A.9XX0 Chronic gout, unspecified, without tophus (tophi); I27.20 Pulmonary hypertension, unspecified; N40.0 Benign prostatic hyperplasia without lower urinary tract symptoms; Z79.82 Long term (current) use of aspirin; Z79.899 Other long term (current) drug therapy; Z80.51 Family history of malignant neoplasm of kidney; Z83.3 Family history of diabetes mellitus; Z87.891 Personal history of nicotine dependence; Z93.3 Colostomy status; Z96.1 Presence of intraocular lens; Z96.651 Presence of right artificial knee joint
CPT/HCPCS: 36415; 71046; 76770; 80053; 80061; 83690; 84484; 85025; 85610; 85730; 93005; 93306; 94640; 96374; 96375; 99291

== ENCOUNTER 2021-09-04 10:52 | Inpatient (IN) | payer MEDICARE, OTHER ==
--- NOTE | 2021-09-04 13:33 | ED ---
General Adult HPI - General Stated complaint: Trouble Urinating Time Seen by Provider: 09/04/21 12:52 Source: patient, family, RN notes reviewed Limitations: no limitations - History of Present Illness Initial comments: Patient is a pleasant 81-year-old male presenting to the emergency department with difficulty urinating. Onset of symptoms was just the last couple of days. Patient has urgency however only small amounts coming out. Patient feels this is abnormal for him. Patient does feel fullness however feels that is more posterior like he may be constipated. Patient does have a colostomy. Patient does have history of similar problems previously and does have history of previous TURP procedure. No dysuria. No fever. - Related Data Home Medications Medication Instructions Recorded Confirmed Acetaminophen [Tylenol 8 Hour] 1,300 mg PO BID 07/24/21 07/24/21 Albuterol Sulfate [Proair Hfa] 2 puff INHALATION RT-Q4H PRN 07/24/21 07/24/21 Allopurinol [Zyloprim] 100 mg PO BID 07/24/21 07/24/21 Aspirin EC [Ecotrin Low Dose] 81 mg PO DAILY 07/24/21 07/24/21 Atorvastatin [Lipitor] 40 mg PO DAILY 07/24/21 07/24/21 Cyanocobalamin [Vitamin B-12] 500 mcg PO DAILY 07/24/21 07/24/21 Dorzolamide 2% [Trusopt 2%] 1 drop BOTH EYES BID 07/24/21 07/24/21 Furosemide [Lasix] 40 mg PO BID 07/24/21 07/24/21 Latanoprost/Pf [Latanoprost 0.005% 1 drop BOTH EYES HS 07/24/21 07/24/21 Eye Drop] Magnesium Oxide 400 mg PO HS 07/24/21 07/24/21 Metoprolol Succinate (ER) [Toprol 100 mg PO DAILY 07/24/21 07/24/21 XL] Midodrine HCl [ProAmatine] 10 mg PO TID 07/24/21 07/24/21 Multivitamins, Thera [Multivitamin 1 tab PO DAILY 07/24/21 07/24/21 (formulary)] [place]-3 Fatty Acids/Fish Oil [Fish 1 cap PO DAILY 07/24/21 07/24/21 Oil 1,000 mg Softgel] Pantoprazole [Protonix] 40 mg PO BID 07/24/21 07/24/21 Umeclidinium Brm/Vilanterol Tr 1 puff INHALATION RT-DAILY 07/24/21 07/24/21 [Anoro Ellipta 62.5-25 Mcg INH] metOLazone [Zaroxolyn] 2.5 mg PO MOTH 07/24/21 07/24/21 Allergies Allergy/AdvReac Type Severity Reaction Status Date / Time Penicillins Allergy Rash/Hives Verified 07/24/21 10:55 shellfish derived [Shellfish] Allergy Nausea & Verified 07/24/21 10:56 Vomiting Review of Systems ROS Statement: Those systems with pertinent positive or pertinent negative responses have been documented in the HPI. ROS Other: All systems not noted in ROS Statement are negative. Constitutional: Denies: fever Eyes: Denies: eye pain ENT: Denies: ear pain Respiratory: Denies: cough Cardiovascular: Denies: chest pain Endocrine: Denies: fatigue Gastrointestinal: Reports: as per HPI, nausea Genitourinary: Reports: urgency Musculoskeletal: Denies: back pain Skin: Denies: rash Neurological: Denies: weakness Past Medical History Past Medical History: Cancer, Chest Pain / Angina, Heart Failure, COPD, Diabetes Mellitus, Eye Disorder, GERD/Reflux, Hyperlipidemia, Hypertension, Osteoarthritis (OA), Prostate Disorder, Renal Disease Additional Past Medical History / Comment(s): Leeann albicans/oral/on antibiotic, 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 History of Any Multi-Drug Resistant Organisms: None Reported Past Surgical History: Bowel Resection, Joint Replacement, Prostate Surgery Additional Past Surgical History / Comment(s): Colostomy, TURP, R total knee arthroplasty, bilateral cataract removals/lens implants. Past Anesthesia/Blood Transfusion Reactions: No Reported Reaction Smoking Status: Former smoker - Past Family History Father Additional Family Medical History / Comment(s): Father lived to be 91 yrs old. He had a pacer. Mother Family Medical History: Diabetes Mellitus Additional Family Medical History / Comment(s): kidney cancer General Exam Limitations: no limitations General appearance: alert, in no apparent distress Head exam: Present: normocephalic Eye exam: Present: normal appearance Neck exam: Present: normal inspection Respiratory exam: Present: normal lung sounds bilaterally Cardiovascular Exam: Present: regular rate, normal rhythm GI/Abdominal exam: Present: soft. Absent: tenderness exam: Present: normal inspection. Absent: testicular tenderness, scrotal swelling Extremities exam: Absent: pedal edema Back exam: Present: normal inspection Neurological exam: Present: alert Psychiatric exam: Present: normal affect, normal mood Skin exam: Present: normal color Course Vital Signs 09/04/21 13:32 Temperature 98.9 F Pulse Rate 54 L Respiratory 18 Rate Blood Pressure 88/49 O2 Sat by Pulse 96 Oximetry Medical Decision Making - Medical Decision Making Patient reevaluated. Patient and family updated. Patient has acute kidney injury. Computed tomography scan of the abdomen be ordered, noncontrast. Nephrology will be consult. Case discussed with Dr. Rachel, who will admit covering Dr. Cherry. - Lab Data Result diagrams: 09/04/21 14:21 09/04/21 14:21 Lab Results 09/04/21 09/04/21 09/04/21 Range/Units 14:21 14:21 14:21 WBC 10.9 H (3.8-10.6) k/uL RBC 4.20 L (4.30-5.90) m/uL Hgb 14.8 (13.0-17.5) gm/dL Hct 44.4 (39.0-53.0) % MCV 105.8 H (80.0-100.0) fL MCH 35.2 H (25.0-35.0) pg MCHC 33.3 (31.0-37.0) g/dL RDW 15.7 H (11.5-15.5) % Plt Count 181 (150-450) k/uL MPV 8.7 Neutrophils % 81 % Lymphocytes % 11 % Monocytes % 5 % Eosinophils % 0 % Basophils % 0 % Neutrophils # 8.8 H (1.3-7.7) k/uL Lymphocytes # 1.2 (1.0-4.8) k/uL Monocytes # 0.6 (0-1.0) k/uL Eosinophils # 0.1 (0-0.7) k/uL Basophils # 0.0 (0-0.2) k/uL Macrocytosis Moderate PT 11.3 (9.0-12.0) sec INR 1.0 (<1.2) APTT 25.5 (22.0-30.0) sec Sodium 137 (137-145) mmol/L Potassium 4.5 (3.5-5.1) mmol/L Chloride 99 (98-107) mmol/L Carbon Dioxide 18 L (22-30) mmol/L Anion Gap 20 mmol/L BUN 78 H (9-20) mg/dL Creatinine 8.14 H* (0.66-1.25) mg/dL Est GFR (CKD-EPI)AfAm 7 (>60 ml/min/1.73 sqM) Est GFR (CKD-EPI)NonAf 6 (>60 ml/min/1.73 sqM) Glucose 137 H (74-99) mg/dL Calcium 9.0 (8.4-10.2) mg/dL Total Bilirubin 1.1 (0.2-1.3) mg/dL AST 36 (17-59) U/L ALT 37 (4-49) U/L Alkaline Phosphatase 108 (38-126) U/L Total Protein 7.1 (6.3-8.2) g/dL Albumin 3.9 (3.5-5.0) g/dL Amylase 157 H (30-110) U/L Lipase 313 H (23-300) U/L - Radiology Data Radiology results: image reviewed (Abdominal x-ray does show nonspecific abdomen. Prominent bowel loops could represent ileus or obstruction. Nonspecific calcifications.) Disposition Clinical Impression: Acute kidney injury Disposition: ADMITTED IP TO THIS [facility] Condition: Serious Is patient prescribed a controlled substance at d/c from ED?: No Referrals: Zainab Patrick MD [Primary Care Provider] - 1-2 days Decision Time: 15:53
[2021-09-04 14:41] LABS: Basophils % (A) 0 %; Eosinophils # (A) 0.1 k/uL (0-0.7); Eosinophils % (A) 0 %; HCT 44.4 % (39.0-53.0); HGB 14.8 gm/dL (13.0-17.5); Lymphocytes # (A) 1.2 k/uL (1.0-4.8); Lymphocytes % (A) 11 %; MCH 35.2 pg (25.0-35.0); MCHC 33.3 g/dL (31.0-37.0); MCV 105.8 fL (80.0-100.0); Macrocytosis Moderate; Mean Platelet Volume 8.7; Monocytes # (A) 0.6 k/uL (0-1.0); Monocytes % (A) 5 %; Neutrophils # (A) 8.8 k/uL (1.3-7.7); Neutrophils % (A) 81 %; Platelet Count 181 k/uL (150-450); RDW 15.7 % (11.5-15.5); WBC 10.9 k/uL (3.8-10.6)
[2021-09-04 14:58] LABS: Partial Thromboplastin Time 25.5 sec (22.0-30.0); Prothrombin Time 11.3 sec (9.0-12.0)
--- NOTE | 2021-09-04 14:58 | XR ---
EXAMINATION TYPE: XR KUB DATE OF EXAM: 09/04/2021 COMPARISON: NONE HISTORY: Pain TECHNIQUE: One view abdominal series FINDINGS: The osseous structures are intact. The bowel gas pattern is nonspecific. Lung bases are clear. Prom inent small bowel loops in the left abdomen. There is a calcification the pelvis likely vascular. Art hropathy of the hips and degenerative change of the spine. Subsegmental atelectasis involving the jonnie g bases with suspected pulmonary fibrosis and COPD. Hypertrophic and degenerative change of the spine . IMPRESSION: 1. Nonspecific abdomen. There are several prominent small bowel loops in left abdomen correlate for ileus or obstruction. 2. Nonspecific left hemipelvic calcification most likely vascular.
[2021-09-04 15:13] LABS: Albumin 3.9 g/dL (3.5-5.0); Potassium 4.5 mmol/L (3.5-5.1); Total Bilirubin 1.1 mg/dL (0.2-1.3); Total Protein 7.1 g/dL (6.3-8.2)
[2021-09-04] MEDS ORDERED: IOPAMIDOL CONTRAST (ORAL USE) VIAL PO PRN (15:54)
[2021-09-04] MEDS ORDERED: NALOXONE 0.4 MG/ML 1 ML VIAL IV PRN (15:55)
--- NOTE | 2021-09-04 18:19 | US ---
EXAMINATION TYPE: US kidneys/renal and bladder DATE OF EXAM: 09/04/2021 COMPARISON: US renal july 2021 CLINICAL HISTORY: acute kidney failure. Kidney failure. Patient unable to void for 3 days. Patient wick d nguyen cath placed. EXAM MEASUREMENTS: Right Kidney: 14.1 x 5.7 x 5.3 cm Left Kidney: 12.6 x 5.5 x 5.5 cm Right Kidney: Large body habitus, difficult to penetrate. No hydronephrosis noted. Left Kidney: Large body habitus, difficult to penetrate. No hydronephrosis noted. Bladder: Nguyen cath imaged IMPRESSION: There is Nguyen catheter. No evidence of renal mass or obstruction. Bladder was empty during the exam.
--- NOTE | 2021-09-04 18:32 | P.HPIM ---
History of Present Illness H&P Date: 09/04/21 History of Presenting Illness: Patient is a very pleasant 81-year-old male with a past medical history of COPD, hypertension, hyperlipidemia, BPH, gout, glaucoma, arthritis, previous bowel obstruction status post resection and colostomy, and tongue cancer. Patient presented to the emergency department with a chief complaint of difficulties with urination. Patient reports having urinary frequency and urgency and only able to produce a small amount each time, dribbling and having significant retention. He reports experiencing a situation similar to this in the past and had to undergo a TURP. Patient otherwise reports feeling great stating normal appetite and denies having any fevers, chills, diaphoresis, chest pain, abdominal pain, nausea, vomiting, back pain, or experiencing any hematuria or dysuria. Patient was seen and fully evaluated in the emergency department and found to have leukocytosis with WBC count of 10.9 and an acute kidney injury with BUN of 78, creatinine 8.14, and GFR of 6 with baseline creatinine of 1.53 with last set of labs being one month ago. In addition patient with slightly elevated amylase of 157 and lipase of 313. KUB completed in the ED showing several prominent small bowel loops in the left abdomen correlating for possible ileus or obstruction and a nonspecific left hemipelvic calcification most likely vasculature. Patient was admitted under our services with consultation to nephrology. Upon assessment at bedside RN placed Rogers catheter with minimal straw colored return of urine. Attempts were made at your irrigation of Rogers catheter and unsuccessful as fluid going and was not coming out via Rogers catheter. STAT ultrasound was completed at bedside. Patient reported pressure- like sensation to suprapubic region with attempts at irrigation otherwise denies having any complaints or concerns. Patient continues to have dribbling of urine but no significant output. Review of systems: Pertinent positives and negatives as discussed in HPI, a complete review of systems was performed and all other systems are negative. Physical exam: Vital signs reviewed and stable. General: Nontoxic, no distress and appears stated age. Derm: Skin warm and dry, normal coloration for ethnicity. Head: Atraumatic, normocephalic and symmetric. Eyes: EOMs intact, no lid lag, and anicteric sclera Mouth: no lip lesions, mucus membranes moist Cardiovascular: regular rate and rhythm with normal S1S2, systolic murmur, posit ama posterior tibial pulses bilaterally, and cap refill < 2 seconds. Lungs: Respirations even, regular, and unlabored on room air. Lungs CTA bilaterally, no rhonchi, no rales, no wheezing, and no accessory muscle usage. Abdominal: Obese abdomen soft, nontender to palpation, no guarding, no apprec iable organomegaly. Ostomy right lower quadrant Ext: ROM intact. No gross muscle atrophy, no edema, no contractures Neuro: Speech clear, face symmetrical and CN II-XII grossly intact with no noted focal neuro deficits Psych: Alert and oriented to person, place, time, and situation. Appropriate and pleasant affect. Assessment and Plan of Care: Acute renal failure -Insert Rogers catheter -Strict I's and O's -STAT renal ultrasound -Urinalysis with reflex to culture -Nephrology consulted -Hold nephrotoxic medications provide gentle hydration -Hydration with IV fluids and continued close monitoring with repeat labs. Ileus versus obstruction in patient with history of bowel obstruction resulting in resection and ostomy placement -Gen. surgery consulted, appreciate further recommendations -Continue ostomy/colostomy care. -CT abdomen and pelvis without contrast to be completed. -Ostomy care Hypertension -Monitor vital signs closely and Hold metoprolol, patient currently hypotensive 80s systolic. Hyperlipidemia -Continue daily medication management with atorvastatin. Glaucoma -Continue daily medication regimen. The patient is admitted with an anticipated greater than 2 midnight stay for evaluation of acute renal failure CODE STATUS: Full code DVT prophylaxis: Heparin Discussed with: Patient, pt's and RN Anticipated discharge date: clinical course to determine Anticipated discharge place: Home A total of 40 minutes was spent on the care of this complex patient more than 50% of the time was spent in counseling and care coordination. I reviewed the documentation as provided by the JAKUB above, who is the original author of this note. 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 History of Any Multi-Drug Resistant Organisms: None Reported Past Surgical History: Bowel Resection, Joint Replacement, Prostate Surgery Additional Past Surgical History / Comment(s): Colostomy, TURP, R total knee arthroplasty, bilateral cataract removals/lens implants. Past Anesthesia/Blood Transfusion Reactions: No Reported Reaction Smoking Status: Former smoker - Past Family History Father Additional Family Medical History / Comment(s): Father lived to be 91 yrs old. He had a pacer. Mother Family Medical History: Diabetes Mellitus Additional Family Medical History / Comment(s): kidney cancer Medications and Allergies Home Medications Medication Instructions Recorded Confirmed Type Acetaminophen [Tylenol 8 Hour] 1,300 mg PO BID 07/24/21 09/04/21 History Albuterol Sulfate [Proair Hfa] 2 puff INHALATION RT-Q4H PRN 07/24/21 09/04/21 History Allopurinol [Zyloprim] 100 mg PO BID 07/24/21 09/04/21 History Aspirin EC [Ecotrin Low Dose] 81 mg PO DAILY 07/24/21 09/04/21 History Atorvastatin [Lipitor] 40 mg PO DAILY 07/24/21 09/04/21 History Cyanocobalamin [Vitamin B-12] 500 mcg PO DAILY 07/24/21 09/04/21 History Dorzolamide 2% [Trusopt 2%] 1 drop BOTH EYES BID 07/24/21 09/04/21 History Furosemide [Lasix] 40 mg PO BID 07/24/21 09/04/21 History Latanoprost/Pf [Latanoprost 0.005% 1 drop BOTH EYES HS 07/24/21 09/04/21 History Eye Drop] Magnesium Oxide 400 mg PO HS 07/24/21 09/04/21 History Metoprolol Succinate (ER) [Toprol 100 mg PO DAILY 07/24/21 09/04/21 History XL] Midodrine HCl [ProAmatine] 10 mg PO TID 07/24/21 09/04/21 History Multivitamins, Thera [Multivitamin 1 tab PO DAILY 07/24/21 09/04/21 History (formulary)] [place]-3 Fatty Acids/Fish Oil [Fish 1 cap PO DAILY 07/24/21 09/04/21 History Oil 1,000 mg Softgel] Pantoprazole [Protonix] 40 mg PO BID 07/24/21 09/04/21 History Umeclidinium Brm/Vilanterol Tr 1 puff INHALATION RT-DAILY 07/24/21 09/04/21 History [Anoro Ellipta 62.5-25 Mcg INH] metOLazone [Zaroxolyn] 2.5 mg PO MOTH 07/24/21 09/04/21 History Chlorhexidine Gluconate [Peridex] 15 ml PO QID 09/04/21 09/04/21 History Allergies Allergy/AdvReac Type Severity Reaction Status Date / Time Penicillins Allergy Rash/Hives Verified 09/04/21 16:55 shellfish derived [Shellfish] Allergy Nausea & Verified 09/04/21 16:55 Vomiting Physical Exam Osteopathic Statement: *. No significant issues noted on an osteopathic structural exam other than those noted in the History and Physical/Consult. Vitals: Vital Signs Temp Pulse Resp BP Pulse Ox 09/04/21 13:32 98.9 F 54 L 18 88/49 96 Intake and Output 09/04/21 09/04/21 09/04/21 06:59 14:59 22:59 Output Total 5 Balance -5 Output: Urine 5 Uretheral (Rogers) 5 Other: Voiding Method Toilet Weight 93.44 kg Results CBC & Chem 7: 09/05/21 07:25 09/05/21 07:25 Labs: Abnormal Lab Results - Last 24 Hours (Table) 09/04/21 09/04/21 Range/Units 14:21 14:21 WBC 10.9 H (3.8-10.6) k/uL RBC 4.20 L (4.30-5.90) m/uL MCV 105.8 H (80.0-100.0) fL MCH 35.2 H (25.0-35.0) pg RDW 15.7 H (11.5-15.5) % Neutrophils # 8.8 H (1.3-7.7) k/uL Carbon Dioxide 18 L (22-30) mmol/L BUN 78 H (9-20) mg/dL Creatinine 8.14 H* (0.66-1.25) mg/dL Glucose 137 H (74-99) mg/dL Amylase 157 H (30-110) U/L Lipase 313 H (23-300) U/L
--- NOTE | 2021-09-04 18:59 | CT ---
EXAMINATION TYPE: CT abdomen pelvis wo con DATE OF EXAM: 09/04/2021 COMPARISON: None HISTORY: ARF, abdominal bloating, possible obstruction. CT DLP: 1100.4 mGycm Automated exposure control for dose reduction was used. Images obtained from the diaphragm to the floor of the pelvis with oral and IV contrast. There is subsegmental atelectasis and scarring at the lung bases. No pleural effusion. Heart size is fairly normal. Thoracic aorta is atheromatous. There is coronary artery calcification. No aneurysm. Liver shows no focal defect. There is 5 mm calcified gallstone. The bile ducts are not dilated. Splee n is intact. No evidence of pancreatic mass. The stomach is intact. There is no adrenal mass. Kidneys show satisfactory contrast opacification. There is no hydronephrosi s. There is 3 cm cortical cyst posterior right kidney. There is no retroperitoneal adenopathy. There is a Rogers catheter in the urinary bladder. Bladder is almost empty. There is no mesenteric edema. No ascites or free air. No bowel obstruction. There is large right side abdominal wall ventral hernia c ontaining multiple loops of bowel and a stoma. Exam limited by patient size. There is no evidence of a bowel obstruction. There is parastomal hernia containing multiple bowel loo ps. There is rectal stump. The lumbar vertebra show a mild degenerative L4-5 subluxation. There is degenerative disc space narro wing throughout the lumbar spine. No compression fracture. There is spinal stenosis at L4-5 and L3-4 and L2-3. Bony pelvis is intact. The hip joints are intact. 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 No bowel obstruction. There is apparent col ectomy. No free air. Fibrotic changes and atelectasis at the lung bases. Atherosclerotic vascular dis ease. Cholelithiasis. Multilevel lumbar spinal stenosis.
[2021-09-04] MEDS: SODIUM CHLORIDE 0.9% 1,000 ML IV SCH (19:15)
[2021-09-04] MEDS: DORZOLAMIDE HCL 2% DROPS 10 ML BTL BOTH EYES SCH (21:29)
[2021-09-04] MEDS: LATANOPROST 0.005% OPHTH DROPS 2.5 ML BTL BOTH EYES SCH (21:29)
[2021-09-04 22:37] LABS: Appearance,Urine Turbid (Clear); Bacteria,Urine Moderate /hpf; Bilirubin,Urine Negative (Negative); Blood,Urine Large (Negative); Color,Urine Yellow; Glucose,Urine (UA) Negative (Negative); Hyaline Casts,Urine 25 /lpf (0-2); Ketones,Urine Negative (Negative); Leukocyte Esterase,Urine Moderate (Negative); Mucus,Urine Few /hpf; Nitrite,Urine Negative (Negative); PH, Urine 5.5 (5.0-8.0); Protein,Urine 2+ (Negative); RBC,Urine >182 /hpf (0-5); Specific Gravity,Urine 1.029 (1.001-1.035); Squamous Epithelial Cell,Urine 3 /hpf (0-4); Urobilinogen,Urine <2.0 mg/dL (<2.0); WBC,Urine 60 /hpf (0-5)
[2021-09-05] MEDS: HEPARIN SODIUM,PORCINE/PF 5,000 UNIT/0.5 ML SYRINGE SQ SCH ×3 (00:15→16:09)
[2021-09-05] MEDS: SODIUM CHLORIDE 0.9% 1,000 ML IV SCH ×2 (04:53→09:22)
[2021-09-05] MEDS: IPRATROPIUM 0.5 MG/2.5 ML NEBU INHALATION SCH ×4 (08:09→20:05)
[2021-09-05] MEDS: FORMOTEROL FUMARATE 20 MCG/2 ML NEBU INHALATION SCH ×2 (08:09→20:05)
[2021-09-05] MEDS ORDERED: ALBUTEROL HFA INHALER INHALATION PRN (08:41)
[2021-09-05] MEDS ORDERED: PANTOPRAZOLE 40 MG/10 ML VIAL IV SCH (09:00)
[2021-09-05] MEDS: ACETAMINOPHEN TAB 325 MG TAB PO SCH ×4 (09:21→22:30)
[2021-09-05] MEDS: ATORVASTATIN 40 MG TAB PO SCH (09:21)
[2021-09-05] MEDS: PANTOPRAZOLE 40 MG TABLET PO SCH ×2 (09:21→16:09)
[2021-09-05] MEDS: ASPIRIN 81 MG PO SCH (09:21)
[2021-09-05] MEDS: MIDODRINE 5 MG TAB PO SCH ×3 (09:46→22:29)
[2021-09-05] MEDS: allopurinoL 100 MG TAB PO SCH (09:46)
[2021-09-05] MEDS: METOPROLOL SUCCINATE (ER) 100 MG TAB.ER.24H PO SCH (09:46)
--- NOTE | 2021-09-05 10:14 | P.NPCON ---
History of Present Illness - Reason for Consult acute renal failure - History of Present Illness Reason for consultation: Acute kidney injury History of present illness: Patient is a 81-year-old male seen in renal consultation for acute kidney injury. Patient's creatinine in July 2021 was near 1.5. This admission it was elevated at 8.14. Patient presented to the hospital due to difficulty urinating. Patient states he has tongue cancer and recently underwent partial resection of the tongue about 2 weeks ago. He states that he underwent CAT scan with IV contrast last and about 2 days later he noticed decrease in urine output. He denies any gross hematuria or dysuria. Denies any vomiting or diarrhea. Patient also has an ileostomy but denies any history of colon cancer. He denies use of nonsteroidals. Denies vomiting. Oral intake has been fair. No fever or chills. Patient states he has history of CHF and follows with cardiology outpatient. He was taking Lasix as well as metolazone prior to admission. No evidence of hydronephrosis was noted on CAT scan a renal ultrasound. Patient's CAT scan from July 2021 showed ejection fraction of 40- 45% with severe pulmonary hypertension. Currently he has no edema. He is receiving IV fluids. He has a Rogers catheter and urine output overnight was about 250 mL. Patient's blood pressure on admission was noted to be low in the systolic 80s. This morning he was 116/73. Vital signs are stable. General: Awake and alert. No acute distress. HEENT: Head exam is unremarkable. LUNGS: Breath sounds decreased. HEART: Rate and Rhythm are regular. ABDOMEN: Soft, no distention. EXTREMITITES: No edema. Past Medical History Past Medical History: Cancer, Chest Pain / Angina, Heart Failure, COPD, Diabetes Mellitus, Eye Disorder, GERD/Reflux, Hyperlipidemia, Hypertension, Osteoarthritis (OA), Prostate Disorder, Renal Disease Additional Past Medical History / Comment(s): Tongue cancer with recent resection/pt states his surgery was cancelled once d/t a heart rhythm problem/ pt needs to get some teeth pulled then will have radiation treatments, past urinary retention/pt had TURP and no retention since, NIDDM diet controlled, neuropathy bilateral great toes, CKD stage III, bowel obstruction/has colostomy, arthritits in multiple joints, gout, JERRY/Cpap not used anymore since R lung "spot" had biopsy and R lung pneumo with chest tubes/"spot was benign", hiatal hernia, BPH, glaucoma bilaterally, hx of alcoholism. History of Any Multi-Drug Resistant Organisms: None Reported Past Surgical History: Bowel Resection, Joint Replacement, Prostate Surgery Additional Past Surgical History / Comment(s): Tongue resection, colostomy, TURP, R lung biopsy thru back, R total knee arthroplasty, bilateral cataract removals/lens implants. Past Anesthesia/Blood Transfusion Reactions: No Reported Reaction Smoking Status: Former smoker - Past Family History Father Additional Family Medical History / Comment(s): Father lived to be 91 yrs old. He had a pacer. Mother Family Medical History: Diabetes Mellitus Additional Family Medical History / Comment(s): kidney cancer Medications and Allergies Home Medications Medication Instructions Recorded Confirmed Type Acetaminophen [Tylenol 8 Hour] 1,300 mg PO BID 07/24/21 09/04/21 History Albuterol Sulfate [Proair Hfa] 2 puff INHALATION RT-Q4H PRN 07/24/21 09/04/21 History Allopurinol [Zyloprim] 100 mg PO BID 07/24/21 09/04/21 History Aspirin EC [Ecotrin Low Dose] 81 mg PO DAILY 07/24/21 09/04/21 History Atorvastatin [Lipitor] 40 mg PO DAILY 07/24/21 09/04/21 History Cyanocobalamin [Vitamin B-12] 500 mcg PO DAILY 07/24/21 09/04/21 History Dorzolamide 2% [Trusopt 2%] 1 drop BOTH EYES BID 07/24/21 09/04/21 History Furosemide [Lasix] 40 mg PO BID 07/24/21 09/04/21 History Latanoprost/Pf [Latanoprost 0.005% 1 drop BOTH EYES HS 07/24/21 09/04/21 History Eye Drop] Magnesium Oxide 400 mg PO HS 07/24/21 09/04/21 History Metoprolol Succinate (ER) [Toprol 100 mg PO DAILY 07/24/21 09/04/21 History XL] Midodrine HCl [ProAmatine] 10 mg PO TID 07/24/21 09/04/21 History Multivitamins, Thera [Multivitamin 1 tab PO DAILY 07/24/21 09/04/21 History (formulary)] [place]-3 Fatty Acids/Fish Oil [Fish 1 cap PO DAILY 07/24/21 09/04/21 History Oil 1,000 mg Softgel] Pantoprazole [Protonix] 40 mg PO BID 07/24/21 09/04/21 History Umeclidinium Brm/Vilanterol Tr 1 puff INHALATION RT-DAILY 07/24/21 09/04/21 History [Anoro Ellipta 62.5-25 Mcg INH] metOLazone [Zaroxolyn] 2.5 mg PO MOTH 07/24/21 09/04/21 History Chlorhexidine Gluconate [Peridex] 15 ml PO QID 09/04/21 09/04/21 History Allergies Allergy/AdvReac Type Severity Reaction Status Date / Time Penicillins Allergy Rash/Hives Verified 09/04/21 16:55 shellfish derived [Shellfish] Allergy Nausea & Verified 09/04/21 16:55 Vomiting Physical Exam Vitals: Vital Signs Temp Pulse Pulse Resp BP BP Pulse Ox 09/05/21 08:30 88 09/05/21 08:20 90 09/05/21 08:14 96 09/05/21 08:12 88 09/05/21 08:00 96.4 F L 67 16 104/62 96 09/05/21 05:10 85 17 09/05/21 04:00 98.1 F 87 18 116/73 95 09/05/21 00:00 98.3 F 87 18 101/84 95 09/04/21 22:18 100 18 140/73 95 09/04/21 20:55 53 L 18 89/51 95 09/04/21 13:32 98.9 F 54 L 18 88/49 96 Intake and Output 09/04/21 09/05/21 09/05/21 22:59 06:59 14:59 Output Total 5 290 Balance -5 -290 Output: Urine 5 250 Uretheral (Rogers) 5 Stool 40 Other: Weight 93.44 kg Results - Lab Results Most recent lab results Calcium 9.0 mg/dL (8.4-10.2) 09/04/21 14:21 09/04/21 14:21 09/04/21 14:21 Assessment and Plan Plan: Assessment: 1. Acute kidney injury secondary to ATN secondary to hypotension, contrast- induced acute kidney injury further worsened with the use of diuretics. Received IV contrast on 08/31/2021. No hydronephrosis noted on CAT scan. Creatinine in July 2021 was near 1.5 (?baseline renal function) and was 8.1 for this admission. 2. Metabolic acidosis secondary to acute kidney injury. 3. Chronic systolic CHF with severe pulmonary hypertension. 4. Tongue cancer. 5. Diabetes mellitus. Plan: Maintain IV fluids. Decrease rate to 75 mL an hour. Add oral bicarb. Continue to hold diuretics. Maintain midodrine. Check morning cortisol level. Avoid nephrotoxins. Follow-up morning labs. Strict I's and O's. Thank you for the consultation. I will continue to follow the patient with you during his hospital stay.
[2021-09-05] MEDS: CHLORHEXIDINE GLUCONATE 15 ML CUP MUCOUS MEM SCH ×4 (10:21→22:33)
[2021-09-05 10:24] LABS: Basophils # (A) 0.04 X 10*3/uL (0.00-0.10); Basophils % (A) 0.5 %; Eosinophils # (A) 0.25 X 10*3/uL (0.04-0.35); Eosinophils % (A) 3.3 %; HCT 35.7 % (39.6-50.0); HGB 11.7 g/dL (13.0-17.0); Immature Grans, Automated 1.1 %; Lymphocytes # (A) 1.36 X 10*3/uL (0.90-5.00); Lymphocytes % (A) 17.9 %; MCH 33.9 pg (27.0-32.0); MCHC 32.8 g/dL (32.0-37.0); MCV 103.5 fL (80.0-97.0); Mean Platelet Volume 11.7 fL (9.5-12.2); Monocytes # (A) 0.63 X 10*3/uL (0.20-1.00); Monocytes % (A) 8.3 %; NRBC Per 100 WBC 0 /100 WBCS (0.0-0.0); Neutrophils # (A) 5.22 X 10*3/uL (1.80-7.70); Neutrophils % (A) 68.9 %; Platelet Count 137 X 10*3/uL (140-440); RBC 3.45 X 10*6/uL (4.40-5.60); RDW 15.1 % (11.5-14.5); WBC 7.58 X 10*3/uL (4.50-10.00)
[2021-09-05 10:48] LABS: African American GFR (CKD) 8.8 (60.0-200.0); Albumin 3.5 g/dL (3.8-4.9); Albumin/Globulin Ratio 1.5 (1.60-3.17); Anion Gap 19.5 mmol/L (10.00-18.00); BUN/Creat Ratio 12.4 Ratio (12.00-20.00); Calcium 8.3 mg/dL (8.7-10.3); Carbon Dioxide 16.9 mmol/L (20.0-27.5); Globulin 2.3 g/dL (1.6-3.3); Magnesium 1.4 mg/dL (1.5-2.4); Non-African American GFR(CKD) 7.6 (60.0-200.0); Potassium 3.4 mmol/L (3.5-5.5); Total Bilirubin 0.5 mg/dL (0.30-1.20); Total Protein 5.8 g/dL (6.2-8.2)
--- NOTE | 2021-09-05 10:52 | P.PN ---
Subjective Progress Note Date: 09/05/21 History of Presenting Illness: Patient is a very pleasant 81-year-old male with a past medical history of COPD, hypertension, hyperlipidemia, BPH, gout, glaucoma, arthritis, previous bowel obstruction status post resection and colostomy, and tongue cancer. Patient presented to the emergency department with a chief complaint of difficulties with urination. Patient reports having urinary frequency and urgency and only able to produce a small amount each time, dribbling and having significant retention. He reports experiencing a situation similar to this in the past and had to undergo a TURP. Patient otherwise reports feeling great stating normal appetite and denies having any fevers, chills, diaphoresis, chest pain, abdominal pain, nausea, vomiting, back pain, or experiencing any hematuria or dysuria. Patient was seen and fully evaluated in the emergency department and found to have leukocytosis with WBC count of 10.9 and an acute kidney injury with BUN of 78, creatinine 8.14, and GFR of 6 with baseline creatinine of 1.53 with last set of labs being one month ago. In addition patient with slightly elevated amylase of 157 and lipase of 313. KUB completed in the ED showing several prominent small bowel loops in the left abdomen correlating for possible ileus or obstruction and a nonspecific left hemipelvic calcification most likely vasculature. Patient was admitted under our services with consultation to nephrology. Upon assessment at bedside RN placed Rogers catheter with minimal straw colored return of urine. Attempts were made at your irrigation of Rogers catheter and unsuccessful as fluid going and was not coming out via Rogers catheter. STAT ultrasound was completed at bedside. Patient reported pressure- like sensation to suprapubic region with attempts at irrigation otherwise denies having any complaints or concerns. Patient continues to have dribbling of urine but no significant output. 09/05: Patient is seen today in the emergency center waiting for a bed on the [facility] floor. He has a Rogers catheter in place and making good urine output. He has been seen by nephrology for acute kidney injury and recommended IV fluids at 75 mL per hour, oral sodium bicarb, hold all diuretics, maintaining midodrine, check cortisol level, strict I&O's. Urinalysis reveals blood large, leukoesterase moderate, RBCs greater than 182, WBC 60, bacteria moderate. Patient started on ceftriaxone and urine culture is in progress. Repeat blood work reveals WBC 7.5, hemoglobin 11.7, platelet count 137. Repeat chemistry report is pending. Regarding patient's tongue cancer, patient had resection done last week and he is scheduled to see a dentist yesterday for removal of his teeth prior to radiation therapy. Tomorrow he is scheduled for simulation testing for radiation. Patient will plan to reschedule his appointments for next week. Patient is currently nothing by mouth but will be started on a renal diet. Renal ultrasound reveals no evidence of renal mass or obstruction. Bladder was emptied during the exam. CAT scan of the abdomen and pelvis without contrast revealed apparent ileostomy with large parastomal hernia. No bowel obstruction. There is apparent colectomy. No free air. Fibrotic changes and atelectasis at the lung bases. Atherosclerotic vascular disease. Cholelithiasis. Multilevel lumbar spinal stenosis. Review of systems: Constitutional: No fever, no chills, no night sweats. No weight change. Reports generalized weakness, reports fatigue. No daytime sleepiness. EENT: No headache. No blurred vision or double vision, no loss of vision. No loss of Hearing, no ringing in the ears, no dizziness. No nasal drainage or congestion. No epistaxis. No sore throat. Lungs: No shortness of breath, cough, no sputum production. No wheezing. Cardiovascular: No chest pain, no lower extremity edema. No palpitations. No paroxysmal nocturnal dyspnea. No orthopnea. No lightheadedness or dizziness. No syncopal episodes. Abdominal: No abdominal pain. No nausea, vomiting. No diarrhea. No constipation. No bloody or tarry stools.. No loss of appetite. Genitourinary: No dysuria, no increased frequency, urgency. No urinary retention. Rogers catheter in place. Musculoskeletal: No myalgias. No muscle weakness, no gait dysfunction, no frequent falls. No back pain. No neck pain. Integumentary: No wounds, no lesions. No rash or pruritus. No unusual bruising. No change in hair or nails. Neurologic: No aphasia. No facial droop. No change in mentation. No head injury. No headache. No paralysis. No paresthesia. Psychiatric: No depression. No anxiety. No mood swings. Endocrine: No abnormal blood sugars. No weight change. No excessive sweating or thirst. No cold intolerance. Physical exam: General: This is 81-year-old male. He is resting on the bed in the emergency center and appears to be in no acute distress. Derm: Skin warm and dry, normal coloration for ethnicity. Head: Atraumatic, normocephalic and symmetric. Eyes: EOMs intact, no lid lag, and anicteric sclera Mouth: no lip lesions, mucus membranes moist Cardiovascular: regular rate and rhythm with normal S1S2, systolic murmur, positive posterior tibial pulses bilaterally, and cap refill < 2 seconds. Lungs: Respirations even, regular, and unlabored on room air. Lungs CTA bilaterally, no rhonchi, no rales, no wheezing, and no accessory muscle usage. Abdominal: Obese abdomen soft, nontender to palpation, no guarding, no appreciable organomegaly. Ostomy right lower quadrant Ext: ROM intact. No gross muscle atrophy, no edema, no contractures Neuro: Speech clear, face symmetrical and CN II-XII grossly intact with no noted focal neuro deficits Psych: Alert and oriented to person, place, time, and situation. Appropriate and pleasant affect. Assessment and Plan of Care: Acute renal failure -Insert Rogers catheter -Strict I's and O's -Nephrology consult appreciated -Hold nephrotoxic medications provide gentle hydration -Hydration with IV fluids at 75 mL per hour and continued close monitoring with repeat labs. Acute UTI -Patient started on ceftriaxone 1 g daily -Await urine culture report Ileus with history of bowel obstruction resulting in resection and ostomy placement -Gen. surgery consulted, appreciate further recommendations -Continue ostomy/colostomy care. Hypertension -Monitor vital signs closely and resume Toprol-XL. Hyperlipidemia -Continue daily medication management with atorvastatin. Glaucoma -Continue daily medication regimen. CODE STATUS: Full code DVT prophylaxis: Heparin DISCHARGE PLAN TBD Impression and plan of care have been directed as dictated by the signing physician. Dori Carter nurse practitioner acting as scribe for signing physician. Objective - Vital Signs Vital signs: Vital Signs Temp 98.1 F 09/05/21 04:00 Pulse 88 09/05/21 08:30 Resp 17 09/05/21 05:10 BP 116/73 09/05/21 04:00 Pulse Ox 96 09/05/21 08:14 Intake & Output 09/04/21 09/05/21 09/05/21 18:59 06:59 18:59 Output Total 5 290 Balance -5 -290 Weight 93.44 kg Output: Urine 5 250 Uretheral (Rogers) 5 Stool 40 Other: Voiding Method Toilet - Labs CBC & Chem 7: 09/05/21 07:25 09/04/21 14:21 Labs: Abnormal Lab Results - Last 24 Hours (Table) 09/04/21 09/04/21 09/04/21 Range/Units 14:21 14:21 21:35 WBC 10.9 H (3.8-10.6) k/uL RBC 4.20 L (4.30-5.90) m/uL MCV 105.8 H (80.0-100.0) fL MCH 35.2 H (25.0-35.0) pg RDW 15.7 H (11.5-15.5) % Neutrophils # 8.8 H (1.3-7.7) k/uL Carbon Dioxide 18 L (22-30) mmol/L BUN 78 H (9-20) mg/dL Creatinine 8.14 H* (0.66-1.25) mg/dL Glucose 137 H (74-99) mg/dL Amylase 157 H (30-110) U/L Lipase 313 H (23-300) U/L Urine Protein 2+ H (Negative) Urine Blood Large H (Negative) Ur Leukocyte Esterase Moderate H (Negative) Urine RBC >182 H (0-5) /hpf Urine WBC 60 H (0-5) /hpf Urine Bacteria Moderate H (None) /hpf Hyaline Casts 25 H (0-2) /lpf Urine Mucus Few H (None) /hpf Microbiology - Last 24 Hours (Table) 09/04/21 21:35 Urine Culture - Preliminary Urine,Voided
[2021-09-05] MEDS ORDERED: POTASSIUM CHLORIDE ER 20 MEQ TAB.ER PO STA (11:14)
[2021-09-05] MEDS: SODIUM BICARBONATE TAB 650 MG TAB PO SCH ×3 (11:31→22:29)
[2021-09-05] MEDS: MAGNESIUM SULFATE-D5W PMX 1 GM in DEXTROSE/WATER 1 100ML.BAG IVPB SCH ×2 (12:08→13:20)
[2021-09-05] MEDS: DORZOLAMIDE HCL 2% DROPS 10 ML BTL BOTH EYES SCH ×2 (13:31→22:30)
[2021-09-05] MEDS: DEXTROSE 5% IN WATER 1,000 ML with SODIUM BICARB (1 MEQ/ML) 150 ML IV SCH (14:22)
--- NOTE | 2021-09-05 14:30 | P.GSCN ---
History of Present Illness Consult date: 09/05/21 History of present illness: CHIEF COMPLAINT: Difficulty with urinating HISTORY OF PRESENT ILLNESS: This is a 81-year-old who presented to the hospital with complaints of difficulty urinating. Patient had sense of urgency and only urinating small amounts. He was found to have evidence of acute kidney injury and low urine output. He has been hypotensive. He had evidence of a UTI. He had recently had computed tomography scan done with IV contrast this past Thursd ay. Since then he had noticed a decrease in his urine output. Patient's nephrology. He has Rogers catheter in place. Urine Output has improved. Patient denies any abdominal pain. His ileostomy is functioning. He denies any nausea or vomiting. He does have a prior history of bowel obstruction requiring bowel resection with ileostomy placement. Patient denies any history of colon cancer. He does report he has a history of tongue cancer and is undergoing workup for any further malignancy and that is why he needed the CAT scan outpatient. Computed tomography scan of abdomen and pelvis did reveal ileostomy with large parastomal hernia and did have evidence of gallstones. No evidence of bowel obstruction. Patient is aware of hernia at his incision site. This is reducible. Patient reports that his bowel surgery was 3 years ago at [facility]. Patient denies any abdominal pain after eating. Denies any nausea or vomiting. PAST MEDICAL HISTORY: Tongue Cancer, Chest Pain / Angina, Heart Failure, COPD, Diabetes Mellitus, Eye Disorder, GERD/Reflux, Hyperlipidemia, Hypertension, Osteoarthritis (OA), Prostate Disorder, Renal Disease PAST SURGICAL HISTORY: Bowel resection with ileostomy, TURP MEDICATIONS: See list. ALLERGIES: See list. SOCIAL HISTORY: No illicit drug use. REVIEW OF SYSTEMS: CONSTITUTIONAL: Denies fever or chills. HEENT: Denies blurred vision, vision changes, or eye pain. Denies hemoptysis CARDIOVASCULAR: Denies chest pain or pressure. RESPIRATORY: No shortness of breath. GASTROINTESTINAL: See HPI for pertinent findings HEMATOLOGIC: Denies bleeding disorders. GENITOURINARY: Denies any blood in urine or increased urinary frequency. SKIN: Denies pruitis. Denies rash. PHYSICAL EXAM: VITAL SIGNS: Reviewed GENERAL: Well-developed in no acute distress. HEENT: No sclera icterus. Extraocular movements grossly intact. Moist buccal m ucosa. Head is atraumatic, normocephalic. No nasal drainage. ABDOMEN: Soft. Nondistended. Nontender. Ileostomy is functioning. Patient does have a hernia bulge noted at the abdominal incision. This is reducible. There is also a parastomal hernia noted when the patient is sitting forward. NEUROLOGIC: Alert and oriented. Cranial nerves II through XII grossly intact. LABORATORY DATA: WBC is 10.9 down to 7.5 hemoglobin is 11.7 platelets 137 Sodium is 136 potassium is 3.4 creatinine 8.14-6.4 CO2 16.9 Magnesium 1.4 LFTs normal Lipase 313 Urinalysis positive for UTI IMAGING: Computed tomography scan abdomen and pelvis there is apparent ileostomy with large parastomal hernia. No bowel distraction. There is apparent colectomy. No free air. Fibrotic changes and atelectasis at lung bases. Atherosclerotic vascular disease. Cholelithiasis. Multilevel lumbar spinal stenosis. ASSESSMENT: 1. 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 No evidence of bowel obstruction 2. Incisional hernia 3. Acute kidney injury followed by nephrology 4. UTI PLAN: -Recommend repair of parastomal hernia outpatient when patient is medically stable -Continue supportive care -Continue IV fluids -Okay to start renal diet Physician Paving Supervisor note has been reviewed by physician. Signing provider agrees with the documented findings, assessment, and plan of care. Past Medical History Past Medical History: Cancer, Chest Pain / Angina, Heart Failure, COPD, Diabetes Mellitus, Eye Disorder, GERD/Reflux, Hyperlipidemia, Hypertension, Osteoarthritis (OA), Prostate Disorder, Renal Disease Additional Past Medical History / Comment(s): Tongue cancer with recent resection/pt states his surgery was cancelled once d/t a heart rhythm problem/ pt needs to get some teeth pulled then will have radiation treatments, past urinary retention/pt had TURP and no retention since, NIDDM diet controlled, neuropathy bilateral great toes, CKD stage III, bowel obstruction/has colostomy, arthritits in multiple joints, gout, JERRY/Cpap not used anymore since R lung "spot" had biopsy and R lung pneumo with chest tubes/"spot was benign", hiatal hernia, BPH, glaucoma bilaterally, hx of alcoholism. History of Any Multi-Drug Resistant Organisms: None Reported Past Surgical History: Bowel Resection, Joint Replacement, Prostate Surgery Additional Past Surgical History / Comment(s): Tongue resection, colostomy, TURP, R lung biopsy thru back, R total knee arthroplasty, bilateral cataract removals/lens implants. Past Anesthesia/Blood Transfusion Reactions: No Reported Reaction Smoking Status: Former smoker - Past Family History Father Additional Family Medical History / Comment(s): Father lived to be 91 yrs old. He had a pacer. Mother Family Medical History: Diabetes Mellitus Additional Family Medical History / Comment(s): kidney cancer Medications and Allergies Home Medications Medication Instructions Recorded Confirmed Type Acetaminophen [Tylenol 8 Hour] 1,300 mg PO BID 07/24/21 09/04/21 History Albuterol Sulfate [Proair Hfa] 2 puff INHALATION RT-Q4H PRN 07/24/21 09/04/21 History Allopurinol [Zyloprim] 100 mg PO BID 07/24/21 09/04/21 History Aspirin EC [Ecotrin Low Dose] 81 mg PO DAILY 07/24/21 09/04/21 History Atorvastatin [Lipitor] 40 mg PO DAILY 07/24/21 09/04/21 History Cyanocobalamin [Vitamin B-12] 500 mcg PO DAILY 07/24/21 09/04/21 History Dorzolamide 2% [Trusopt 2%] 1 drop BOTH EYES BID 07/24/21 09/04/21 History Furosemide [Lasix] 40 mg PO BID 07/24/21 09/04/21 History Latanoprost/Pf [Latanoprost 0.005% 1 drop BOTH EYES HS 07/24/21 09/04/21 History Eye Drop] Magnesium Oxide 400 mg PO HS 07/24/21 09/04/21 History Metoprolol Succinate (ER) [Toprol 100 mg PO DAILY 07/24/21 09/04/21 History XL] Midodrine HCl [ProAmatine] 10 mg PO TID 07/24/21 09/04/21 History Multivitamins, Thera [Multivitamin 1 tab PO DAILY 07/24/21 09/04/21 History (formulary)] [place]-3 Fatty Acids/Fish Oil [Fish 1 cap PO DAILY 07/24/21 09/04/21 History Oil 1,000 mg Softgel] Pantoprazole [Protonix] 40 mg PO BID 07/24/21 09/04/21 History Umeclidinium Brm/Vilanterol Tr 1 puff INHALATION RT-DAILY 07/24/21 09/04/21 History [Anoro Ellipta 62.5-25 Mcg INH] metOLazone [Zaroxolyn] 2.5 mg PO MOTH 07/24/21 09/04/21 History Chlorhexidine Gluconate [Peridex] 15 ml PO QID 09/04/21 09/04/21 History Allergies Allergy/AdvReac Type Severity Reaction Status Date / Time Penicillins Allergy Rash/Hives Verified 09/04/21 16:55 shellfish derived [Shellfish] Allergy Nausea & Verified 09/04/21 16:55 Vomiting Surgical - Exam Vital Signs Temp Pulse Resp BP Pulse Ox 98.9 F 54 L 18 88/49 96 09/04/21 13:32 09/04/21 13:32 09/04/21 13:32 09/04/21 13:32 09/04/21 13:32 Results - Labs 09/05/21 07:25 09/05/21 07:25 Abnormal Lab Results - Last 24 Hours (Table) 09/04/21 09/04/21 09/04/21 Range/Units 14:21 14:21 21:35 WBC 10.9 H (3.8-10.6) k/uL RBC 4.20 L (4.30-5.90) m/uL MCV 105.8 H (80.0-100.0) fL MCH 35.2 H (25.0-35.0) pg RDW 15.7 H (11.5-15.5) % Neutrophils # 8.8 H (1.3-7.7) k/uL Carbon Dioxide 18 L (22-30) mmol/L BUN 78 H (9-20) mg/dL Creatinine 8.14 H* (0.66-1.25) mg/dL Glucose 137 H (74-99) mg/dL Amylase 157 H (30-110) U/L Lipase 313 H (23-300) U/L Urine Protein 2+ H (Negative) Urine Blood Large H (Negative) Ur Leukocyte Esterase Moderate H (Negative) Urine RBC >182 H (0-5) /hpf Urine WBC 60 H (0-5) /hpf Urine Bacteria Moderate H (None) /hpf Hyaline Casts 25 H (0-2) /lpf Urine Mucus Few H (None) /hpf Microbiology - Last 24 Hours (Table) 09/04/21 21:35 Urine Culture - Preliminary Urine,Voided Diabetes panel 09/04/21 Range/Units 14:21 Sodium 137 (137-145) mmol/L Potassium 4.5 (3.5-5.1) mmol/L Chloride 99 (98-107) mmol/L Carbon Dioxide 18 L (22-30) mmol/L BUN 78 H (9-20) mg/dL Creatinine 8.14 H* (0.66-1.25) mg/dL Glucose 137 H (74-99) mg/dL Calcium 9.0 (8.4-10.2) mg/dL AST 36 (17-59) U/L ALT 37 (4-49) U/L Alkaline Phosphatase 108 (38-126) U/L Total Protein 7.1 (6.3-8.2) g/dL Albumin 3.9 (3.5-5.0) g/dL Calcium panel 09/04/21 Range/Units 14:21 Calcium 9.0 (8.4-10.2) mg/dL Albumin 3.9 (3.5-5.0) g/dL Pituitary panel 09/04/21 Range/Units 14:21 Sodium 137 (137-145) mmol/L Potassium 4.5 (3.5-5.1) mmol/L Chloride 99 (98-107) mmol/L Carbon Dioxide 18 L (22-30) mmol/L BUN 78 H (9-20) mg/dL Creatinine 8.14 H* (0.66-1.25) mg/dL Glucose 137 H (74-99) mg/dL Calcium 9.0 (8.4-10.2) mg/dL Adrenal panel 09/04/21 Range/Units 14:21 Sodium 137 (137-145) mmol/L Potassium 4.5 (3.5-5.1) mmol/L Chloride 99 (98-107) mmol/L Carbon Dioxide 18 L (22-30) mmol/L BUN 78 H (9-20) mg/dL Creatinine 8.14 H* (0.66-1.25) mg/dL Glucose 137 H (74-99) mg/dL Calcium 9.0 (8.4-10.2) mg/dL Total Bilirubin 1.1 (0.2-1.3) mg/dL AST 36 (17-59) U/L ALT 37 (4-49) U/L Alkaline Phosphatase 108 (38-126) U/L Total Protein 7.1 (6.3-8.2) g/dL Albumin 3.9 (3.5-5.0) g/dL
[2021-09-05] MEDS: MAGNESIUM OXIDE 400 MG TAB PO SCH (22:29)
[2021-09-06] MEDS: LATANOPROST 0.005% OPHTH DROPS 2.5 ML BTL BOTH EYES SCH ×2 (03:15→20:07)
[2021-09-06] MEDS: HEPARIN SODIUM,PORCINE/PF 5,000 UNIT/0.5 ML SYRINGE SQ SCH ×3 (03:15→16:38)
[2021-09-06] MEDS: DEXTROSE 5% IN WATER 1,000 ML with SODIUM BICARB (1 MEQ/ML) 150 ML IV SCH (07:44)
[2021-09-06] MEDS: IPRATROPIUM 0.5 MG/2.5 ML NEBU INHALATION SCH ×4 (07:46→21:08)
[2021-09-06] MEDS: FORMOTEROL FUMARATE 20 MCG/2 ML NEBU INHALATION SCH ×2 (07:46→21:08)
[2021-09-06] MEDS: ACETAMINOPHEN TAB 325 MG TAB PO SCH ×4 (09:09→22:32)
[2021-09-06] MEDS: allopurinoL 100 MG TAB PO SCH (09:10)
[2021-09-06] MEDS: ASPIRIN 81 MG PO SCH (09:10)
[2021-09-06] MEDS: ATORVASTATIN 40 MG TAB PO SCH (09:10)
[2021-09-06] MEDS: SODIUM BICARBONATE TAB 650 MG TAB PO SCH ×3 (09:10→22:32)
[2021-09-06] MEDS: MIDODRINE 5 MG TAB PO SCH ×3 (09:10→22:32)
[2021-09-06] MEDS: PANTOPRAZOLE 40 MG TABLET PO SCH ×2 (09:10→16:37)
[2021-09-06] MEDS: CHLORHEXIDINE GLUCONATE 15 ML CUP MUCOUS MEM SCH ×4 (09:11→22:33)
[2021-09-06] MEDS: METOPROLOL SUCCINATE (ER) 100 MG TAB.ER.24H PO SCH (10:05)
[2021-09-06] MEDS: DORZOLAMIDE HCL 2% DROPS 10 ML BTL BOTH EYES SCH ×2 (10:05→20:06)
--- NOTE | 2021-09-06 11:11 | P.PN ---
Subjective Patient is seen in follow for acute kidney injury. Morning labs pending. Has a Rogers catheter. Nonoliguric. Oral intake. No vomiting or diarrhea. Hemodynamically stable. On 3 L is a cannula. Vital signs are stable. General: Awake and alert. No acute distress. HEENT: Head exam is unremarkable. LUNGS: Breath sounds decreased. HEART: Rate and Rhythm are regular. ABDOMEN: Soft, no distention. EXTREMITITES: No edema. Objective - Vital Signs Vital signs: Vital Signs Temp 97.5 F L 09/06/21 08:35 Pulse 98 09/06/21 08:35 Resp 18 09/06/21 08:35 BP 111/72 09/06/21 08:35 Pulse Ox 94 L 09/06/21 08:35 Intake & Output 09/05/21 09/06/21 09/06/21 18:59 06:59 18:59 Intake Total 240 12 Output Total 910 1765 1000 Balance -670 -1753 -1000 Weight 93.44 kg Intake: Oral 240 12 Output: Urine 700 1525 1000 Uretheral (Rogers) 700 1000 Stool 210 240 Other: Voiding Method Indwelling Catheter Indwelling Catheter - Labs CBC & Chem 7: 09/05/21 07:25 09/05/21 07:25 Assessment and Plan Plan: Assessment: 1. Acute kidney injury secondary to ATN secondary to hypotension, contrast- induced acute kidney injury further worsened with the use of diuretics. Received IV contrast on 08/31/2021. No hydronephrosis noted on CAT scan. Creatinine in July 2021 was near 1.5 (?baseline renal function) and was 8.14 this admission -6.4 yesterday. 2. Metabolic acidosis secondary to acute kidney injury.Maintained on bicarb dri p. 3. Chronic systolic CHF with severe pulmonary hypertension. 4. Tongue cancer. 5. Diabetes mellitus. 6. Hypokalemia and hypomagnesemia from poor intake and intracellular shifting from IV bicarb. Replaced. Plan: Maintain bicarb drip for now. Maintain oral bicarb. Continue to hold diuretics. Maintain midodrine. Follow-up morning cortisol level. Avoid nephrotoxins. Follow-up morning labs. DC Rogers catheter but continue to monitor strict I's and O's.
--- NOTE | 2021-09-06 11:53 | P.PN ---
Subjective Progress Note Date: 09/06/21 History of Presenting Illness: Patient is a very pleasant 81-year-old male with a past medical history of COPD, hypertension, hyperlipidemia, BPH, gout, glaucoma, arthritis, previous bowel obstruction status post resection and colostomy, and tongue cancer. Patient presented to the emergency department with a chief complaint of difficulties with urination. Patient reports having urinary frequency and urgency and only able to produce a small amount each time, dribbling and having significant retention. He reports experiencing a situation similar to this in the past and had to undergo a TURP. Patient otherwise reports feeling great stating normal appetite and denies having any fevers, chills, diaphoresis, chest pain, abdominal pain, nausea, vomiting, back pain, or experiencing any hematuria or dysuria. Patient was seen and fully evaluated in the emergency department and found to have leukocytosis with WBC count of 10.9 and an acute kidney injury with BUN of 78, creatinine 8.14, and GFR of 6 with baseline creatinine of 1.53 with last set of labs being one month ago. In addition patient with slightly elevated amylase of 157 and lipase of 313. KUB completed in the ED showing several prominent small bowel loops in the left abdomen correlating for possible ileus or obstruction and a nonspecific left hemipelvic calcification most likely vasculature. Patient was admitted under our services with consultation to nephrology. Upon assessment at bedside RN placed Rogers catheter with minimal straw colored return of urine. Attempts were made at your irrigation of Rogers catheter and unsuccessful as fluid going and was not coming out via Rogers catheter. STAT ultrasound was completed at bedside. Patient reported pressure- like sensation to suprapubic region with attempts at irrigation otherwise denies having any complaints or concerns. Patient continues to have dribbling of urine but no significant output. 09/05: Patient is seen today in the emergency center waiting for a bed on the [facility] floor. He has a Rogers catheter in place and making good urine output. He has been seen by nephrology for acute kidney injury and recommended IV fluids at 75 mL per hour, oral sodium bicarb, hold all diuretics, maintaining midodrine, check cortisol level, strict I&O's. Urinalysis reveals blood large, leukoesterase moderate, RBCs greater than 182, WBC 60, bacteria moderate. Patient started on ceftriaxone and urine culture is in progress. Repeat blood work reveals WBC 7.5, hemoglobin 11.7, platelet count 137. Repeat chemistry report is pending. Regarding patient's tongue cancer, patient had resection done last week and he is scheduled to see a dentist yesterday for removal of his teeth prior to radiation therapy. Tomorrow he is scheduled for simulation testing for radiation. Patient will plan to reschedule his appointments for next week. Patient is currently nothing by mouth but will be started on a renal diet. Renal ultrasound reveals no evidence of renal mass or obstruction. Bladder was emptied during the exam. CAT scan of the abdomen and pelvis without contrast revealed apparent ileostomy with large parastomal hernia. No bowel obstruction. There is apparent colectomy. No free air. Fibrotic changes and atelectasis at the lung bases. Atherosclerotic vascular disease. Cholelithiasis. Multilevel lumbar spinal stenosis. 09/06: Patient is seen today on the [facility] floor. He denies any new complaints. No nausea or vomiting. He has a Rogers catheter in place with very good urine output. Blood work from yesterday revealed hemoglobin of 11.7, platelet count 137 sodium 136, potassium 3.4, chloride 100, CO2 16, BUN 79 and creatinine 6.4. Calcium 8.3, glucose 96. Magnesium 1.4. Liver function tests normal. Magnesium was replaced yesterday. Blood work from today has been drawn but not reported. Urine culture is in progress. Bicarb drip was started yesterday on top of oral sodium bicarb. Patient has been afebrile, heart rate 98, blood pressure 111/72, pulse ox 94% on 3 L nasal cannula. Patient has been seen by g eneral surgery and well obstruction ruled out. Patient is to follow up outpatient for parastomal hernia repair. Review of systems: Constitutional: No fever, no chills, no night sweats. No weight change. Reports generalized weakness, reports fatigue. No daytime sleepiness. EENT: No headache. No blurred vision or double vision, no loss of vision. No loss of Hearing, no ringing in the ears, no dizziness. No nasal drainage or congestion. No epistaxis. No sore throat. Lungs: No shortness of breath, cough, no sputum production. No wheezing. Cardiovascular: No chest pain, no lower extremity edema. No palpitations. No paroxysmal nocturnal dyspnea. No orthopnea. No lightheadedness or dizziness. No syncopal episodes. Abdominal: No abdominal pain. No nausea, vomiting. No diarrhea. No constipation. No bloody or tarry stools.. No loss of appetite. Genitourinary: No dysuria, no increased frequency, urgency. No urinary retention. Rogers catheter in place. Musculoskeletal: No myalgias. No muscle weakness, no gait dysfunction, no frequent falls. No back pain. No neck pain. Integumentary: No wounds, no lesions. No rash or pruritus. No unusual bruising. No change in hair or nails. Neurologic: No aphasia. No facial droop. No change in mentation. No head injury. No headache. No paralysis. No paresthesia. Psychiatric: No depression. No anxiety. No mood swings. Endocrine: No abnormal blood sugars. No weight change. No excessive sweating or thirst. No cold intolerance. Physical exam: General: This is 81-year-old male. He is resting on the bed and ap pears to be in no acute distress. Derm: Skin warm and dry, normal coloration for ethnicity. Head: Atraumatic, normocephalic and symmetric. Eyes: EOMs intact, no lid lag, and anicteric sclera Mouth: no lip lesions, mucus membranes moist Cardiovascular: regular rate and rhythm with normal S1S2, systolic murmur, positive posterior tibial pulses bilaterally, and cap refill < 2 seconds. Lungs: Respirations even, regular, and unlabored on room air. Lungs CTA bilaterally, no rhonchi, no rales, no wheezing, and no accessory muscle usage. Abdominal: Obese abdomen soft, nontender to palpation, no guarding, no appreciable organomegaly. Ostomy right lower quadrant Ext: ROM intact. No gross muscle atrophy, no edema, no contractures Neuro: Speech clear, face symmetrical and CN II-XII grossly intact with no noted focal neuro deficits Psych: Alert and oriented to person, place, time, and situation. Appropriate and pleasant affect. Assessment and Plan of Care: Acute renal failure -Insert Rogers catheter-to be discontinued today -Strict I's and O's -Nephrology consult appreciated -Hold nephrotoxic medications provide gentle hydration -Hydration with IV fluids at 75 mL per hour and continued close monitoring with repeat labs. Metabolic acidosis secondary to acute renal failure -Sodium bicarb drip and oral sodium bicarb per nephrology Acute UTI -Patient started on ceftriaxone 1 g daily -Await urine culture report Ileus ruled out with history of bowel obstruction resulting in resection and ostomy placement -Gen. surgery consult appreciated -Continue ostomy/colostomy care. Hypertension -Monitor vital signs closely and continue Toprol-XL. Hyperlipidemia -Continue daily medication management with atorvastatin. Glaucoma -Continue daily medication regimen. CODE STATUS: Full code DVT prophylaxis: Heparin DISCHARGE PLAN Home with [facility], consult with PT and OT added. Impression and plan of care have been directed as dictated by the signing physician. Dori Carter nurse practitioner acting as scribe for signing physician. Objective - Vital Signs Vital signs: Vital Signs Temp 97.5 F L 09/06/21 08:35 Pulse 98 09/06/21 08:35 Resp 18 09/06/21 08:35 BP 111/72 09/06/21 08:35 Pulse Ox 94 L 09/06/21 08:35 Intake & Output 09/05/21 09/06/21 09/06/21 18:59 06:59 18:59 Intake Total 240 12 Output Total 910 1765 Balance -670 -1753 Weight 93.44 kg Intake: Oral 240 12 Output: Urine 700 1525 Uretheral (Rogers) 700 Stool 210 240 Other: Voiding Method Indwelling Catheter - Labs CBC & Chem 7: 09/05/21 07:25 09/05/21 07:25 Labs: Abnormal Lab Results - Last 24 Hours (Table) 09/05/21 09/05/21 Range/Units 07:25 07:25 RBC 3.45 L (4.40-5.60) X 10*6/uL Hgb 11.7 L (13.0-17.0) g/dL Hct 35.7 L (39.6-50.0) % MCV 103.5 H (80.0-97.0) fL MCH 33.9 H (27.0-32.0) pg RDW 15.1 H (11.5-14.5) % Plt Count 137 L (140-440) X 10*3/uL Immature Gran # 0.08 H (0.00-0.04) X 10*3/uL Potassium 3.4 L (3.5-5.5) mmol/L Carbon Dioxide 16.9 L (20.0-27.5) mmol/L Anion Gap 19.50 H (10.00-18.00) mmol/L BUN 79.0 H (9.0-27.0) mg/dL Creatinine 6.4 H (0.6-1.5) mg/dL Est GFR (CKD-EPI)AfAm 8.8 L (60.0-200.0) Est GFR (CKD-EPI)NonAf 7.6 L (60.0-200.0) Calcium 8.3 L (8.7-10.3) mg/dL Phosphorus 6.0 H (2.4-5.1) mg/dL Magnesium 1.4 L (1.5-2.4) mg/dL Total Protein 5.8 L (6.2-8.2) g/dL Albumin 3.5 L (3.8-4.9) g/dL Albumin/Globulin Ratio 1.50 L (1.60-3.17) g/dL
--- NOTE | 2021-09-06 13:02 | P.PN ---
Subjective Progress Note Date: 09/06/21 CHIEF COMPLAINT: Decreased urine output HISTORY OF PRESENT ILLNESS: Patient reports improvement in his urine output. Patient's ostomy is functioning properly. No evidence of bowel obstruction. Denies abdominal pain. Denies any nausea vomiting. Afebrile WBC 7.58, 11.7 CMP and magnesium level from today pending PHYSICAL EXAM: VITAL SIGNS: Reviewed. GENERAL: Well-developed in no acute distress. HEENT: No sclera icterus. Extraocular movements grossly intact. Moist buccal mucosa. Head is atraumatic, normocephalic. ABDOMEN: Soft. Nondistended. Patient has evidence of reducible hernia in the midline incision and evidence of a parastomal hernia on the right side of the abdomen. Ostomy is functioning. NEUROLOGIC: Alert and oriented. Cranial nerves II through XII grossly intact. ASSESSMENT: 1. 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 No evidence of bowel obstruction 2. Incisional hernia 3. Acute kidney injury followed by nephrology 4. UTI PLAN: -Recommend repair of parastomal and incisional hernia outpatient when patient is medically stable -Continue supportive care Physician Washing Machine Assembler note has been reviewed by physician. Signing provider agrees with the documented findings, assessment, and plan of care. Objective - Vital Signs Vital signs: Vital Signs Temp 97.5 F L 09/06/21 08:35 Pulse 85 09/06/21 11:35 Resp 18 09/06/21 08:35 BP 111/72 09/06/21 08:35 Pulse Ox 94 L 09/06/21 08:35 Intake & Output 09/05/21 09/06/21 09/06/21 18:59 06:59 18:59 Intake Total 240 12 720 Output Total 910 1765 1999 Balance -975 -4603 -2875 Weight 93.44 kg Intake: Oral 240 12 720 Output: Urine 700 1525 1999 Uretheral (Rogers) 700 1000 Stool 210 240 Other: Voiding Method Indwelling Catheter Indwelling Catheter - Labs CBC & Chem 7: 09/05/21 07:25 09/05/21 07:25
[2021-09-06 13:38] VITALS: BMI 33.2
[2021-09-06 16:10] LABS: African American GFR (CKD) 17.6 (60.0-200.0); Albumin 3.6 g/dL (3.8-4.9); Albumin/Globulin Ratio 1.5 (1.60-3.17); Anion Gap 13.4 mmol/L (10.00-18.00); BUN/Creat Ratio 17.97 Ratio (12.00-20.00); Blood Urea Nitrogen 64.7 mg/dL (9.0-27.0); Calcium 8.3 mg/dL (8.7-10.3); Carbon Dioxide 23.6 mmol/L (20.0-27.5); Globulin 2.4 g/dL (1.6-3.3); Magnesium 1.9 mg/dL (1.5-2.4); Non-African American GFR(CKD) 15.1 (60.0-200.0); Potassium 3.2 mmol/L (3.5-5.5); Total Bilirubin 0.3 mg/dL (0.30-1.20)
[2021-09-06 16:16] LABS: Phosphorus 3.6 mg/dL (2.4-5.1)
[2021-09-06] MEDS ORDERED: POTASSIUM CHLORIDE ER 20 MEQ TAB.ER PO STA (16:20)
[2021-09-06] MEDS ORDERED: Potassium Replacement Protocol 1 EACH MISC MISCELLANE PRN (18:21)
[2021-09-06] MEDS: POTASSIUM CHLORIDE ER 20 MEQ TAB.ER PO SCH ×2 (18:46→20:02)
[2021-09-06] MEDS: SODIUM CHLORIDE 0.9% 1,000 ML IV SCH (18:47)
[2021-09-06] MEDS: MAGNESIUM OXIDE 400 MG TAB PO SCH (22:32)
[2021-09-07] MEDS: HEPARIN SODIUM,PORCINE/PF 5,000 UNIT/0.5 ML SYRINGE SQ SCH ×4 (00:15→23:54)
[2021-09-07] MEDS: SODIUM CHLORIDE 0.9% 1,000 ML IV SCH ×2 (04:33→22:27)
[2021-09-07] MEDS: ATORVASTATIN 40 MG TAB PO SCH (07:35)
[2021-09-07] MEDS: PANTOPRAZOLE 40 MG TABLET PO SCH ×2 (07:35→17:24)
[2021-09-07] MEDS: SODIUM BICARBONATE TAB 650 MG TAB PO SCH ×3 (07:35→21:03)
[2021-09-07] MEDS: MIDODRINE 5 MG TAB PO SCH ×3 (07:35→21:03)
[2021-09-07] MEDS: ASPIRIN 81 MG PO SCH (07:35)
[2021-09-07] MEDS: allopurinoL 100 MG TAB PO SCH (07:35)
[2021-09-07] MEDS: ACETAMINOPHEN TAB 325 MG TAB PO SCH ×4 (07:35→21:03)
[2021-09-07] MEDS: CHLORHEXIDINE GLUCONATE 15 ML CUP MUCOUS MEM SCH ×4 (07:37→21:05)
[2021-09-07] MEDS: METOPROLOL SUCCINATE (ER) 100 MG TAB.ER.24H PO SCH (07:46)
[2021-09-07] MEDS: DORZOLAMIDE HCL 2% DROPS 10 ML BTL BOTH EYES SCH ×2 (07:47→21:04)
[2021-09-07] MEDS: IPRATROPIUM 0.5 MG/2.5 ML NEBU INHALATION SCH ×4 (08:10→21:25)
[2021-09-07] MEDS: FORMOTEROL FUMARATE 20 MCG/2 ML NEBU INHALATION SCH ×2 (08:10→21:25)
[2021-09-07] MEDS: TAMSULOSIN 0.4 MG CAP.ER.24H PO SCH (09:43)
--- NOTE | 2021-09-07 10:27 | P.PN ---
Subjective Patient is seen in follow for acute kidney injury. Renal function improving. Rogers catheter had to be reinserted due to persistent urinary retention. Nonoliguric. Oral intake is good. No vomiting or diarrhea. Hemodynamically stable. On 4 L is a cannula. Vital signs are stable. General: Awake and alert. No acute distress. HEENT: Head exam is unremarkable. LUNGS: Breath sounds decreased. HEART: Rate and Rhythm are regular. ABDOMEN: Soft, no distention. EXTREMITITES: No edema. Objective - Vital Signs Vital signs: Vital Signs Temp 98.5 F 09/07/21 07:43 Pulse 87 09/07/21 08:26 Resp 20 09/07/21 10:07 BP 100/66 09/07/21 07:43 Pulse Ox 91 L 09/07/21 07:43 Intake & Output 09/06/21 09/07/21 09/07/21 18:59 06:59 18:59 Intake Total 1620 Output Total 2200 1050 1500 Balance -580 -1050 -1500 Weight 93.44 kg Intake: Intake, IV Titration 900 Amount Dextrose 5% in Water 1, 900 000 ml @ 75 mls/hr IV . [id number] MARTINA with Sodium Bicarb (1 Meq/ml) 150 ml Rx#:[id number] Oral 720 Output: Urine 2000 950 1400 Uretheral (Rogers) 1000 650 Post Void Residual 200 Stool 100 100 Other: Voiding Method Indwelling Catheter Urinal Self-Catheterization - Labs CBC & Chem 7: 09/05/21 07:25 09/06/21 07:42 Labs: Abnormal Lab Results - Last 24 Hours (Table) 09/06/21 Range/Units 07:42 Potassium 3.2 L (3.5-5.5) mmol/L BUN 64.7 H (9.0-27.0) mg/dL Creatinine 3.6 H (0.6-1.5) mg/dL Est GFR (CKD-EPI)AfAm 17.6 L (60.0-200.0) Est GFR (CKD-EPI)NonAf 15.1 L (60.0-200.0) Glucose 134 H (70-110) mg/dL Calcium 8.3 L (8.7-10.3) mg/dL Total Protein 6.0 L (6.2-8.2) g/dL Albumin 3.6 L (3.8-4.9) g/dL Albumin/Globulin Ratio 1.50 L (1.60-3.17) g/dL Microbiology - Last 24 Hours (Table) 09/04/21 21:35 Urine Culture - Final Urine,Voided Assessment and Plan Plan: Assessment: 1. Acute kidney injury secondary to ATN secondary to hypotension, contrast- induced acute kidney injury further worsened with the use of diuretics. Received IV contrast on 08/31/2021. No hydronephrosis noted on CAT scan. Creatinine in July 2021 was near 1.5 (?baseline renal function) and was 8.14 this admission -3.6 yesterday. 2. Metabolic acidosis secondary to acute kidney injury. status post bicarb drip. Better. On oral bicarb. 3. Chronic systolic CHF with severe pulmonary hypertension. 4. Tongue cancer. 5. Diabetes mellitus. 6. Hypokalemia and hypomagnesemia from poor intake and intracellular shifting from IV bicarb. Replaced. 7. Urinary retention. Rogers catheter reinserted. On Flomax. Urology consulted. Plan: Decrease rate of normal saline to 50 mL an hour. Encouraged oral intake. Continue to hold diuretics. Maintain midodrine. Cortisol level not low. Avoid nephrotoxins. Follow-up morning labs.
[2021-09-07 12:10] LABS: Magnesium 1.6 mg/dL (1.5-2.4)
[2021-09-07 12:19] LABS: African American GFR (CKD) 34.9 (60.0-200.0); Albumin 3.7 g/dL (3.8-4.9); Albumin/Globulin Ratio 1.54 (1.60-3.17); Anion Gap 14.2 mmol/L (10.00-18.00); BUN/Creat Ratio 22.06 Ratio (12.00-20.00); Calcium 8.9 mg/dL (8.7-10.3); Carbon Dioxide 25.6 mmol/L (20.0-27.5); Globulin 2.4 g/dL (1.6-3.3); Non-African American GFR(CKD) 30.1 (60.0-200.0); Potassium 3.5 mmol/L (3.5-5.5); Total Bilirubin 0.6 mg/dL (0.30-1.20)
--- NOTE | 2021-09-07 13:30 | P.PN ---
Subjective Progress Note Date: 09/07/21 CHIEF COMPLAINT: Decreased urine output HISTORY OF PRESENT ILLNESS: Patient had evidence of urinary retention during the night and had a Rogers catheter reinserted. Patient's ostomy is functioning properly. No evidence of bowel obstruction. Denies abdominal pain. Denies any nausea vomiting. Afebrile Na 144 K 3.5 cr 2.0 Mg 1.6 PHYSICAL EXAM: VITAL SIGNS: Reviewed. GENERAL: Well-developed in no acute distress. HEENT: No sclera icterus. Extraocular movements grossly intact. Moist buccal mucosa. Head is atraumatic, normocephalic. ABDOMEN: Soft. Nondistended. Patient has evidence of reducible hernia in the midline incision and evidence of a parastomal hernia on the right side of the abdomen. Ostomy is functioning. NEUROLOGIC: Alert and oriented. Cranial nerves II through XII grossly intact. ASSESSMENT: 1. 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 No evidence of bowel obstruction 2. Incisional hernia 3. Acute kidney injury followed by nephrology 4. UTI PLAN: -Recommend repair of parastomal and incisional hernia outpatient when patient is medically stable -Continue supportive care Physician Supervisor Parking Lot note has been reviewed by physician. Signing provider agrees with the documented findings, assessment, and plan of care. Objective - Vital Signs Vital signs: Vital Signs Temp 98.5 F 09/07/21 07:43 Pulse 88 09/07/21 11:36 Resp 20 09/07/21 10:07 BP 100/66 09/07/21 07:43 Pulse Ox 91 L 09/07/21 07:43 Intake & Output 09/06/21 09/07/21 09/07/21 18:59 06:59 18:59 Intake Total 1620 Output Total 2200 1050 1700 Balance -580 -1050 -1700 Weight 93.44 kg Intake: Intake, IV Titration 900 Amount Dextrose 5% in Water 1, 900 000 ml @ 75 mls/hr IV . [id number] MARTINA with Sodium Bicarb (1 Meq/ml) 150 ml Rx#:[id number] Oral 720 Output: Urine 2000 950 1400 Uretheral (Rogers) 1000 650 Post Void Residual 200 Stool 100 300 Other: Voiding Method Indwelling Catheter Urinal Self-Catheterization - Labs CBC & Chem 7: 09/05/21 07:25 09/07/21 07:11 Labs: Abnormal Lab Results - Last 24 Hours (Table) 09/06/21 09/07/21 Range/Units 07:42 07:11 Potassium 3.2 L (3.5-5.5) mmol/L BUN 64.7 H 45.0 H (9.0-27.0) mg/dL Creatinine 3.6 H 2.0 H (0.6-1.5) mg/dL Est GFR (CKD-EPI)AfAm 17.6 L 34.9 L (60.0-200.0) Est GFR (CKD-EPI)NonAf 15.1 L 30.1 L (60.0-200.0) BUN/Creatinine Ratio 22.06 H (12.00-20.00) Ratio Glucose 134 H (70-110) mg/dL Calcium 8.3 L (8.7-10.3) mg/dL Total Protein 6.0 L 6.0 L (6.2-8.2) g/dL Albumin 3.6 L 3.7 L (3.8-4.9) g/dL Albumin/Globulin Ratio 1.50 L 1.54 L (1.60-3.17) g/dL Microbiology - Last 24 Hours (Table) 09/04/21 21:35 Urine Culture - Final Urine,Voided
[2021-09-07] MEDS ORDERED: POTASSIUM CHLORIDE ER 20 MEQ TAB.ER PO STA (15:04)
--- NOTE | 2021-09-07 15:20 | P.PN ---
Subjective Progress Note Date: 09/07/21 History of Presenting Illness: Patient is a very pleasant 81-year-old male with a past medical history of COPD, hypertension, hyperlipidemia, BPH, gout, glaucoma, arthritis, previous bowel obstruction status post resection and colostomy, and tongue cancer. Patient presented to the emergency department with a chief complaint of difficulties with urination. Patient reports having urinary frequency and urgency and only able to produce a small amount each time, dribbling and having significant retention. He reports experiencing a situation similar to this in the past and had to undergo a TURP. Patient otherwise reports feeling great stating normal appetite and denies having any fevers, chills, diaphoresis, chest pain, abdominal pain, nausea, vomiting, back pain, or experiencing any hematuria or dysuria. Patient was seen and fully evaluated in the emergency department and found to have leukocytosis with WBC count of 10.9 and an acute kidney injury with BUN of 78, creatinine 8.14, and GFR of 6 with baseline creatinine of 1.53 with last set of labs being one month ago. In addition patient with slightly elevated amylase of 157 and lipase of 313. KUB completed in the ED showing several prominent small bowel loops in the left abdomen correlating for possible ileus or obstruction and a nonspecific left hemipelvic calcification most likely vasculature. Patient was admitted under our services with consultation to nephrology. Upon assessment at bedside RN placed Rogers catheter with minimal straw colored return of urine. Attempts were made at your irrigation of Rogers catheter and unsuccessful as fluid going and was not coming out via Rogers catheter. STAT ultrasound was completed at bedside. Patient reported pressure- like sensation to suprapubic region with attempts at irrigation otherwise denies having any complaints or concerns. Patient continues to have dribbling of urine but no significant output. 09/05: Patient is seen today in the emergency center waiting for a bed on the [facility] floor. He has a Rogers catheter in place and making good urine output. He has been seen by nephrology for acute kidney injury and recommended IV fluids at 75 mL per hour, oral sodium bicarb, hold all diuretics, maintaining midodrine, check cortisol level, strict I&O's. Urinalysis reveals blood large, leukoesterase moderate, RBCs greater than 182, WBC 60, bacteria moderate. Patient started on ceftriaxone and urine culture is in progress. Repeat blood work reveals WBC 7.5, hemoglobin 11.7, platelet count 137. Repeat chemistry report is pending. Regarding patient's tongue cancer, patient had resection done last week and he is scheduled to see a dentist yesterday for removal of his teeth prior to radiation therapy. Tomorrow he is scheduled for simulation testing for radiation. Patient will plan to reschedule his appointments for next week. Patient is currently nothing by mouth but will be started on a renal diet. Renal ultrasound reveals no evidence of renal mass or obstruction. Bladder was emptied during the exam. CAT scan of the abdomen and pelvis without contrast revealed apparent ileostomy with large parastomal hernia. No bowel obstruction. There is apparent colectomy. No free air. Fibrotic changes and atelectasis at the lung bases. Atherosclerotic vascular disease. Cholelithiasis. Multilevel lumbar spinal stenosis. 09/06: Patient is seen today on the [facility] floor. He denies any new complaints. No nausea or vomiting. He has a Rogers catheter in place with very good urine output. Blood work from yesterday revealed hemoglobin of 11.7, platelet count 137 sodium 136, potassium 3.4, chloride 100, CO2 16, BUN 79 and creatinine 6.4. Calcium 8.3, glucose 96. Magnesium 1.4. Liver function tests normal. Magnesium was replaced yesterday. Blood work from today has been drawn but not reported. Urine culture is in progress. Bicarb drip was started yesterday on top of oral sodium bicarb. Patient has been afebrile, heart rate 98, blood pressure 111/72, pulse ox 94% on 3 L nasal cannula. Patient has been seen by g eneral surgery and well obstruction ruled out. Patient is to follow up outpatient for parastomal hernia repair. 09/07: Repeat blood work reveals significant improvement of his renal function with BUN of 45 creatinine 2.0. Electrolytes are normal including potassium of 3.5. Patient's Rogers catheter was removed yesterday unfortunately need to be replaced due to retention and patient was started on Flomax. Nephrology is decrease IV fluids to 50 mL per hour, maintaining midodrine, avoid nephrotoxins. Repeat blood work ordered for tomorrow. Urine culture finalized with no growth at 18 hours. Antibiotics will be discontinued. Review of systems: Constitutional: No fever, no chills, no night sweats. No weight change. Reports generalized weakness, reports fatigue. No daytime sleepiness. EENT: No headache. No blurred vision or double vision, no loss of vision. No loss of Hearing, no ringing in the ears, no dizziness. No nasal drainage or congestion. No epistaxis. No sore throat. Lungs: No shortness of breath, cough, no sputum production. No wheezing. Cardiovascular: No chest pain, no lower extremity edema. No palpitations. No paroxysmal nocturnal dyspnea. No orthopnea. No lightheadedness or dizziness. No syncopal episodes. Abdominal: No abdominal pain. No nausea, vomiting. No diarrhea. No constipation. No bloody or tarry stools.. No loss of appetite. Genitourinary: No dysuria, no increased frequency, urgency. No urinary retention. Rogers catheter in place. Musculoskeletal: No myalgias. No muscle weakness, no gait dysfunction, no frequent falls. No back pain. No neck pain. Integumentary: No wounds, no lesions. No rash or pruritus. No unusual bruisi ng. No change in hair or nails. Neurologic: No aphasia. No facial droop. No change in mentation. No head injury. No headache. No paralysis. No paresthesia. Psychiatric: No depression. No anxiety. No mood swings. Endocrine: No abnormal blood sugars. No weight change. No excessive sweating or thirst. No cold intolerance. Physical exam: General: This is 81-year-old male. He is resting on the bed and appears to be in no acute distress. Derm: Skin warm and dry, normal coloration for ethnicity. Head: Atraumatic, normocephalic and symmetric. Eyes: EOMs intact, no lid lag, and anicteric sclera Mouth: no lip lesions, mucus membranes moist Cardiovascular: regular rate and rhythm with normal S1S2, systolic murmur, positive posterior tibial pulses bilaterally, and cap refill < 2 seconds. Lungs: Respirations even, regular, and unlabored on room air. Lungs CTA bilaterally, no rhonchi, no rales, no wheezing, and no accessory muscle usage. Abdominal: Obese abdomen soft, nontender to palpation, no guarding, no appreciable organomegaly. Ostomy right lower quadrant Ext: ROM intact. No gross muscle atrophy, no edema, no contractures Neuro: Speech clear, face symmetrical and CN II-XII grossly intact with no noted focal neuro deficits Psych: Alert and oriented to person, place, time, and situation. Appropriate and pleasant affect. Assessment and Plan of Care: Acute renal failure -Strict I's and O's -Nephrology consult appreciated -Hold nephrotoxic medications provide gentle hydration -Hydration with IV fluids at 50 mL per hour and continued close monitoring with repeat labs. Urinary retention. Maintain Rogers catheter, continue Flomax 0.4 mg daily. Metabolic acidosis secondary to acute renal failure -Sodium bicarb drip and oral sodium bicarb per nephrology Acute UTI ruled out. Antibiotics discontinued. Ileus ruled out with history of bowel obstruction resulting in resection and ostomy placement -Gen. surgery consult appreciated regarding parastomal and incisional hernia with plan for repair outpatient follow-up -Continue ostomy/colostomy care. Hypertension -Monitor vital signs closely and continue Toprol-XL. Hyperlipidemia -Continue daily medication management with atorvastatin. Glaucoma -Continue daily medication regimen. CODE STATUS: Full code DVT prophylaxis: Heparin DISCHARGE PLAN Home with [facility], consult with PT and OT added. Impression and plan of care have been directed as dictated by the signing physician. Dori Carter nurse practitioner acting as scribe for signing physician. Objective - Vital Signs Vital signs: Vital Signs Temp 98.5 F 09/07/21 07:43 Pulse 87 09/07/21 08:26 Resp 19 09/07/21 07:43 BP 100/66 09/07/21 07:43 Pulse Ox 91 L 09/07/21 07:43 Intake & Output 09/06/21 09/07/21 09/07/21 18:59 06:59 18:59 Intake Total 1620 Output Total 2200 1050 1400 Balance -580 -1050 -1400 Weight 93.44 kg Intake: Intake, IV Titration 900 Amount Dextrose 5% in Water 1, 900 000 ml @ 75 mls/hr IV . [id number] MARTINA with Sodium Bicarb (1 Meq/ml) 150 ml Rx#:[id number] Oral 720 Output: Urine 2000 950 1400 Uretheral (Rogers) 1000 650 Post Void Residual 200 Stool 100 Other: Voiding Method Indwelling Catheter Urinal - Labs CBC & Chem 7: 09/05/21 07:25 09/07/21 07:11 Labs: Abnormal Lab Results - Last 24 Hours (Table) 09/06/21 Range/Units 07:42 Potassium 3.2 L (3.5-5.5) mmol/L BUN 64.7 H (9.0-27.0) mg/dL Creatinine 3.6 H (0.6-1.5) mg/dL Est GFR (CKD-EPI)AfAm 17.6 L (60.0-200.0) Est GFR (CKD-EPI)NonAf 15.1 L (60.0-200.0) Glucose 134 H (70-110) mg/dL Calcium 8.3 L (8.7-10.3) mg/dL Total Protein 6.0 L (6.2-8.2) g/dL Albumin 3.6 L (3.8-4.9) g/dL Albumin/Globulin Ratio 1.50 L (1.60-3.17) g/dL Microbiology - Last 24 Hours (Table) 09/04/21 21:35 Urine Culture - Final Urine,Voided
[2021-09-07] MEDS: MAGNESIUM SULFATE-D5W PMX 1 GM in DEXTROSE/WATER 1 100ML.BAG IVPB SCH ×2 (16:07→17:23)
--- NOTE | 2021-09-07 18:46 | P.GSCN ---
History of Present Illness Consult date: 09/07/21 Reason for Consult: Urinary retention History of present illness: This is 81-year-old male admitted to the hospital with acute kidney injury. Urology is consulted for urinary retention. He indicated he's been having difficulty voiding, indicating gets the urge but is unable to void, has only able to dribble small amount of urine. Denies any dysuria or gross hematuria. He indicates prior to this event he was voiding without issues. He does have history of retention in the past approximately 3 years ago. He underwent a TURP following his retention episode at [facility], indicated after his surgery he's been voiding without issues with good flow. Denies any dysuria or gross hematuria or flank pain. He does have family history of prostate cancer. Postvoid residual was checked and was greater than 600 mL, subsequently a Rogers catheter was placed Review of Systems - Constitutional Denies fever, Denies weight loss - EENT Ears, nose, mouth and throat: Denies dysphagia - Cardiovascular Denies chest pain, Denies shortness of breath - Respiratory Denies cough, Denies 7 - Gastrointestinal Reports abdominal pain - Genitourinary Reports urinary retention - Integumentary Denies rash, Denies unusual bruising - Neurological Denies headaches, Denies syncope Past Medical History Past Medical History: Cancer, Chest Pain / Angina, Heart Failure, COPD, Diabetes Mellitus, Eye Disorder, GERD/Reflux, Hyperlipidemia, Hypertension, Osteoar thritis (OA), Prostate Disorder, Renal Disease Additional Past Medical History / Comment(s): Leeann albicans/oral/on antibiotic, tongue cancer/to start chemo and radiation, NIDDM diet controlled, neuropathy bilateral great toes, CKD, bowel obstruction/has colostomy, arthrit its in multiple joints, gout, hiatal hernia, BPH, glaucoma bilaterally, hx of alcoholism. History of Any Multi-Drug Resistant Organisms: None Reported Past Surgical History: Bowel Resection, Joint Replacement, Prostate Surgery Additional Past Surgical History / Comment(s): Colostomy, TURP, R total knee arthroplasty, bilateral cataract removals/lens implants. Past Anesthesia/Blood Transfusion Reactions: No Reported Reaction Smoking Status: Former smoker - Past Family History Father Additional Family Medical History / Comment(s): Father lived to be 91 yrs old. He had a pacer. Mother Family Medical History: Diabetes Mellitus Additional Family Medical History / Comment(s): kidney cancer Medications and Allergies Home Medications Medication Instructions Recorded Confirmed Type Acetaminophen [Tylenol 8 Hour] 1,300 mg PO BID 07/24/21 09/04/21 History Albuterol Sulfate [Proair Hfa] 2 puff INHALATION RT-Q4H PRN 07/24/21 09/04/21 History Allopurinol [Zyloprim] 100 mg PO BID 07/24/21 09/04/21 History Aspirin EC [Ecotrin Low Dose] 81 mg PO DAILY 07/24/21 09/04/21 History Atorvastatin [Lipitor] 40 mg PO DAILY 07/24/21 09/04/21 History Cyanocobalamin [Vitamin B-12] 500 mcg PO DAILY 07/24/21 09/04/21 History Dorzolamide 2% [Trusopt 2%] 1 drop BOTH EYES BID 07/24/21 09/04/21 History Furosemide [Lasix] 40 mg PO BID 07/24/21 09/04/21 History Latanoprost/Pf [Latanoprost 0.005% 1 drop BOTH EYES HS 07/24/21 09/04/21 History Eye Drop] Magnesium Oxide 400 mg PO HS 07/24/21 09/04/21 History Metoprolol Succinate (ER) [Toprol 100 mg PO DAILY 07/24/21 09/04/21 History XL] Midodrine HCl [ProAmatine] 10 mg PO TID 07/24/21 09/04/21 History Multivitamins, Thera [Multivitamin 1 tab PO DAILY 07/24/21 09/04/21 History (formulary)] [place]-3 Fatty Acids/Fish Oil [Fish 1 cap PO DAILY 07/24/21 09/04/21 History Oil 1,000 mg Softgel] Pantoprazole [Protonix] 40 mg PO BID 07/24/21 09/04/21 History Umeclidinium Brm/Vilanterol Tr 1 puff INHALATION RT-DAILY 07/24/21 09/04/21 History [Anoro Ellipta 62.5-25 Mcg INH] metOLazone [Zaroxolyn] 2.5 mg PO MOTH 07/24/21 09/04/21 History Chlorhexidine Gluconate [Peridex] 15 ml PO QID 09/04/21 09/04/21 History Allergies Allergy/AdvReac Type Severity Reaction Status Date / Time Penicillins Allergy Rash/Hives Verified 09/04/21 16:55 shellfish derived [Shellfish] Allergy Nausea & Verified 09/04/21 16:55 Vomiting Surgical - Exam Vital Signs Temp Pulse Resp BP Pulse Ox 98.9 F 54 L 18 88/49 96 09/04/21 13:32 09/04/21 13:32 09/04/21 13:32 09/04/21 13:32 09/04/21 13:32 - General well developed, well nourished, no distress, no pain - Eyes normal ocular movement, no pale - ENT normal nares, normal mucosa - Respiratory normal expansion, normal respiratory effort - Abdomen Abdomen: soft, non tender - Genitourinary normal penis with no external lesions, testicles non-tender - Psychiatric oriented to time, oriented to person, oriented to place Results - Labs 09/05/21 07:25 09/07/21 07:11 Abnormal Lab Results - Last 24 Hours (Table) 09/07/21 Range/Units 07:11 BUN 45.0 H (9.0-27.0) mg/dL Creatinine 2.0 H (0.6-1.5) mg/dL Est GFR (CKD-EPI)AfAm 34.9 L (60.0-200.0) Est GFR (CKD-EPI)NonAf 30.1 L (60.0-200.0) BUN/Creatinine Ratio 22.06 H (12.00-20.00) Ratio Total Protein 6.0 L (6.2-8.2) g/dL Albumin 3.7 L (3.8-4.9) g/dL Albumin/Globulin Ratio 1.54 L (1.60-3.17) g/dL Microbiology - Last 24 Hours (Table) 09/04/21 21:35 Urine Culture - Final Urine,Voided Diabetes panel 09/07/21 Range/Units 07:11 Sodium 144 (135-145) mmol/L Potassium 3.5 (3.5-5.5) mmol/L Chloride 104 (96-109) mmol/L Carbon Dioxide 25.6 (20.0-27.5) mmol/L BUN 45.0 H (9.0-27.0) mg/dL Creatinine 2.0 H (0.6-1.5) mg/dL Glucose 100 (70-110) mg/dL Calcium 8.9 (8.7-10.3) mg/dL AST 35 (14-35) U/L ALT 27 (10-49) U/L Alkaline Phosphatase 79 (41-126) U/L Total Protein 6.0 L (6.2-8.2) g/dL Albumin 3.7 L (3.8-4.9) g/dL Calcium panel 09/07/21 Range/Units 07:11 Calcium 8.9 (8.7-10.3) mg/dL Albumin 3.7 L (3.8-4.9) g/dL Pituitary panel 09/07/21 Range/Units 07:11 Sodium 144 (135-145) mmol/L Potassium 3.5 (3.5-5.5) mmol/L Chloride 104 (96-109) mmol/L Carbon Dioxide 25.6 (20.0-27.5) mmol/L BUN 45.0 H (9.0-27.0) mg/dL Creatinine 2.0 H (0.6-1.5) mg/dL Glucose 100 (70-110) mg/dL Calcium 8.9 (8.7-10.3) mg/dL Adrenal panel 09/07/21 Range/Units 07:11 Sodium 144 (135-145) mmol/L Potassium 3.5 (3.5-5.5) mmol/L Chloride 104 (96-109) mmol/L Carbon Dioxide 25.6 (20.0-27.5) mmol/L BUN 45.0 H (9.0-27.0) mg/dL Creatinine 2.0 H (0.6-1.5) mg/dL Glucose 100 (70-110) mg/dL Calcium 8.9 (8.7-10.3) mg/dL Total Bilirubin 0.60 (0.30-1.20) mg/dL AST 35 (14-35) U/L ALT 27 (10-49) U/L Alkaline Phosphatase 79 (41-126) U/L Total Protein 6.0 L (6.2-8.2) g/dL Albumin 3.7 L (3.8-4.9) g/dL Assessment and Plan Assessment: 81-year-old male with history of 600 MS urinary retention, no voiding issues at baseline, history of TURP 3 years ago -Keep Rogers catheter in 1 week, advised to follow up in our office in 1 week for a trial of void. He will remove his catheter in the morning prior to his appointment -Continue Flomax, recommend discharge home on Flomax
[2021-09-07 20:13] LABS: Glucose,Whole Blood 168 mg/dL (75-99)
[2021-09-07] MEDS: MAGNESIUM OXIDE 400 MG TAB PO SCH (21:03)
[2021-09-07] MEDS: LATANOPROST 0.005% OPHTH DROPS 2.5 ML BTL BOTH EYES SCH (21:04)
[2021-09-08] MEDS: HEPARIN SODIUM,PORCINE/PF 5,000 UNIT/0.5 ML SYRINGE SQ SCH (06:53)
[2021-09-08] MEDS: MIDODRINE 5 MG TAB PO SCH ×2 (06:53→06:54)
[2021-09-08] MEDS: ASPIRIN 81 MG PO SCH (06:53)
[2021-09-08] MEDS: allopurinoL 100 MG TAB PO SCH (06:54)
[2021-09-08] MEDS: TAMSULOSIN 0.4 MG CAP.ER.24H PO SCH (06:54)
[2021-09-08] MEDS: SODIUM BICARBONATE TAB 650 MG TAB PO SCH (06:54)
[2021-09-08] MEDS: METOPROLOL SUCCINATE (ER) 100 MG TAB.ER.24H PO SCH (06:54)
[2021-09-08] MEDS: ACETAMINOPHEN TAB 325 MG TAB PO SCH ×2 (06:54→12:19)
[2021-09-08] MEDS: ATORVASTATIN 40 MG TAB PO SCH (06:54)
[2021-09-08] MEDS: PANTOPRAZOLE 40 MG TABLET PO SCH (06:54)
[2021-09-08] MEDS: DORZOLAMIDE HCL 2% DROPS 10 ML BTL BOTH EYES SCH (06:55)
[2021-09-08] MEDS: CHLORHEXIDINE GLUCONATE 15 ML CUP MUCOUS MEM SCH ×2 (06:55→12:19)
[2021-09-08 08:16] VITALS: BP 112/75; TEMP 97.9
[2021-09-08] MEDS: IPRATROPIUM 0.5 MG/2.5 ML NEBU INHALATION SCH ×2 (08:37→11:32)
[2021-09-08] MEDS: FORMOTEROL FUMARATE 20 MCG/2 ML NEBU INHALATION SCH (08:37)
[2021-09-08 09:27] LABS: HCT 39.5 % (39.6-50.0); MCHC 32.9 g/dL (32.0-37.0); MCV 103.4 fL (80.0-97.0); Mean Platelet Volume 12.5 fL (9.5-12.2); NRBC Per 100 WBC 0 /100 WBCS (0.0-0.0); Platelet Count 150 X 10*3/uL (140-440); RBC 3.82 X 10*6/uL (4.40-5.60); RDW 15.2 % (11.5-14.5); WBC 7.92 X 10*3/uL (4.50-10.00)
--- NOTE | 2021-09-08 09:46 | P.DS ---
Providers Date of admission: 09/04/21 15:55 Expected date of discharge: 09/08/21 Attending physician: Aniket Cherry Consults: 09/04/21 15:55 Consult Physician Urgent Consulting Provider: Steven Oneal Consult Reason/Comments: GENNARO, cr 8 Do you want consulting provider notified?: Yes 09/04/21 17:42 Consult Physician Urgent Consulting Provider: Henry Rivero Consult Reason/Comments: ileus vs obstruction Do you want consulting provider notified?: Yes 09/07/21 08:40 Consult Physician Routine Consulting Provider: Elvin Limon Consult Reason/Comments: Urinary Retention Do you want consulting provider notified?: Yes Primary care physician: [facility] Course: History of Presenting Illness: Patient is a very pleasant 81-year-old male with a past medical history of COPD, hypertension, hyperlipidemia, BPH, gout, glaucoma, arthritis, previous bowel obstruction status post resection and colostomy, and tongue cancer. Patient presented to the emergency department with a chief complaint of difficulties with urination. Patient reports having urinary frequency and urgency and only able to produce a small amount each time, dribbling and having significant retention. He reports experiencing a situation similar to this in the past and had to undergo a TURP. Patient otherwise reports feeling great stating normal appetite and denies having any fevers, chills, diaphoresis, chest pain, abdominal pain, nausea, vomiting, back pain, or experiencing any hematuria or dysuria. Patient was seen and fully evaluated in the emergency department and found to have leukocytosis with WBC count of 10.9 and an acute kidney injury with BUN of 78, creatinine 8.14, and GFR of 6 with baseline creatinine of 1.53 with last set of labs being one month ago. In addition patient with slightly elevated amylase of 157 and lipase of 313. KUB completed in the ED showing several prominent small bowel loops in the left abdomen correlating for possible ileus or obstruction and a nonspecific left hemipelvic calcification most likely vasculature. Patient was admitted under our services with consultation to nephrology. Upon assessment at bedside RN placed Rogers catheter with minimal straw colored return of urine. Attempts were made at your irrigation of Rogers catheter and unsuccessful as fluid going and was not coming out via Rogers catheter. STAT ultrasound was completed at bedside. Patient reported pressure- like sensation to suprapubic region with attempts at irrigation otherwise denies having any complaints or concerns. Patient continues to have dribbling of urine but no significant output. 09/05: Patient is seen today in the emergency center waiting for a bed on the [facility] floor. He has a Rogers catheter in place and making good urine output. He has been seen by nephrology for acute kidney injury and recommended IV fluids at 75 mL per hour, oral sodium bicarb, hold all diuretics, maintaining midodrine, check cortisol level, strict I&O's. Urinalysis reveals blood large, leukoesterase moderate, RBCs greater than 182, WBC 60, bacteria moderate. Patient started on ceftriaxone and urine culture is in progress. Repeat blood work reveals WBC 7.5, hemoglobin 11.7, platelet count 137. Repeat chemistry report is pending. Regarding patient's tongue cancer, patient had resection done last week and he is scheduled to see a dentist yesterday for removal of his teeth prior to radiation therapy. Tomorrow he is scheduled for simulation testing for radiation. Patient will plan to reschedule his appointments for next week. Patient is currently nothing by mouth but will be started on a renal diet. Renal ultrasound reveals no evidence of renal mass or obstruction. Bladder was emptied during the exam. CAT scan of the abdomen and pelvis without contrast revealed apparent ileostomy with large parastomal hernia. No bowel obstruction. There is apparent colectomy. No free air. Fibrotic changes and atelectasis at the lung bases. Atherosclerotic vascular disease. Cholelithiasis. Multilevel lumbar spinal stenosis. 09/06: Patient is seen today on the [facility] floor. He denies any new complaints. No nausea or vomiting. He has a Rogers catheter in place with very good urine output. Blood work from yesterday revealed hemoglobin of 11.7, platelet count 137 sodium 136, potassium 3.4, chloride 100, CO2 16, BUN 79 and creatinine 6.4. Calcium 8.3, glucose 96. Magnesium 1.4. Liver function tests normal. Magnesium was replaced yesterday. Blood work from today has been drawn but not reported. Urine culture is in progress. Bicarb drip was started yesterday on top of oral sodium bicarb. Patient has been afebrile, heart rate 98, blood pressure 111/72, pulse ox 94% on 3 L nasal cannula. Patient has been seen by general surgery and well obstruction ruled out. Patient is to follow up outpatient for parastomal hernia repair. 09/07: Repeat blood work reveals significant improvement of his renal function with BUN of 45 creatinine 2.0. Electrolytes are normal including potassium of 3.5. Patient's Rogers catheter was removed yesterday unfortunately need to be replaced due to retention and patient was started on Flomax. Nephrology is decrease IV fluids to 50 mL per hour, maintaining midodrine, avoid nephrotoxins. Repeat blood work ordered for tomorrow. Urine culture finalized with no growth at 18 hours. Antibiotics will be discontinued. 09/08: Case discussed with Dr. Oneal and patient is cleared for discharge with the following medication changes, add sodium bicarb once daily, potassium 10 mEq daily, decrease Lasix to 40 mg frequency to once daily resuming on Saturday, discontinue metolazone. Repeat blood work is been ordered on Saturday for Dr. Brewer office. Patient has also been seen by urology with plan to maintain Rogers catheter for 1 week and recheck in the office for voiding trial, continue Flomax. Patient has been seen by PT and OT with recommendations for home with home care. Patient will be discharged today in stable condition. Chemistry panel not available at the time of this dictation. DISCHARGE DIAGNOSES Acute renal failure Urinary retention. Metabolic acidosis secondary to acute renal failure Acute UTI ruled out. Ileus ruled out with history of bowel obstruction resulting in resection and ostomy placement Hypertension Hyperlipidemia Glaucoma DISCHARGE PLAN Home with [facility] care Greater than 35 minutes was utilized and coordinating patient's discharge. Impression and plan of care have been directed as dictated by the signing physician. Dori Carter nurse practitioner acting as scribe for signing physician. Patient Condition at Discharge: Serious Plan - Discharge Summary Discharge Rx Participant: Yes New Discharge Prescriptions: New Tamsulosin [Flomax] 0.4 mg PO PC-BRKFST #30 tab Sodium Bicarbonate Tab 650 mg PO DAILY #20 tab Potassium Chloride ER [K-Dur 10] 10 meq PO DAILY #30 tab Continue Albuterol Sulfate [Proair Hfa] 2 puff INHALATION RT-Q4H PRN PRN Reason: Shortness Of Breath Multivitamins, Thera [Multivitamin (formulary)] 1 tab PO DAILY Magnesium Oxide 400 mg PO HS Aspirin EC [Ecotrin Low Dose] 81 mg PO DAILY Pantoprazole [Protonix] 40 mg PO BID Metoprolol Succinate (ER) [Toprol XL] 100 mg PO DAILY Allopurinol [Zyloprim] 100 mg PO BID Chlorhexidine Gluconate [Peridex] 15 ml PO QID Umeclidinium Brm/Vilanterol Tr [Anoro Ellipta 62.5-25 Mcg INH] 1 puff I NHALATION RT-DAILY Atorvastatin [Lipitor] 40 mg PO DAILY Speonk-3 Fatty Acids/Fish Oil [Fish Oil 1,000 mg Softgel] 1 cap PO DAILY Latanoprost/Pf [Latanoprost 0.005% Eye Drop] 1 drop BOTH EYES HS Dorzolamide 2% [Trusopt 2%] 1 drop BOTH EYES BID Cyanocobalamin [Vitamin B-12] 500 mcg PO DAILY Acetaminophen [Tylenol 8 Hour] 1,300 mg PO BID Midodrine HCl [ProAmatine] 10 mg PO TID Changed Furosemide [Lasix] 40 mg PO DAILY #0 Discontinued metOLazone [Zaroxolyn] 2.5 mg PO MOTH Discharge Medication List Acetaminophen [Tylenol 8 Hour] 1,300 mg PO BID 07/24/21 [History] Albuterol Sulfate [Proair Hfa] 2 puff INHALATION RT-Q4H PRN 07/24/21 [History] Allopurinol [Zyloprim] 100 mg PO BID 07/24/21 [History] Aspirin EC [Ecotrin Low Dose] 81 mg PO DAILY 07/24/21 [History] Atorvastatin [Lipitor] 40 mg PO DAILY 07/24/21 [History] Cyanocobalamin [Vitamin B-12] 500 mcg PO DAILY 07/24/21 [History] Dorzolamide 2% [Trusopt 2%] 1 drop BOTH EYES BID 07/24/21 [History] Latanoprost/Pf [Latanoprost 0.005% Eye Drop] 1 drop BOTH EYES HS 07/24/21 [History] Magnesium Oxide 400 mg PO HS 07/24/21 [History] Metoprolol Succinate (ER) [Toprol XL] 100 mg PO DAILY 07/24/21 [History] Midodrine HCl [ProAmatine] 10 mg PO TID 07/24/21 [History] Multivitamins, Thera [Multivitamin (formulary)] 1 tab PO DAILY 07/24/21 [His tory] Speonk-3 Fatty Acids/Fish Oil [Fish Oil 1,000 mg Softgel] 1 cap PO DAILY 07/24/21 [History] Pantoprazole [Protonix] 40 mg PO BID 07/24/21 [History] Umeclidinium Brm/Vilanterol Tr [Anoro Ellipta 62.5-25 Mcg INH] 1 puff INHALATION RT-DAILY 07/24/21 [History] Chlorhexidine Gluconate [Peridex] 15 ml PO QID 09/04/21 [History] Furosemide [Lasix] 40 mg PO DAILY #0 09/08/21 [Rx] Potassium Chloride ER [K-Dur 10] 10 meq PO DAILY #30 tab 09/08/21 [Rx] Sodium Bicarbonate Tab 650 mg PO DAILY #20 tab 09/08/21 [Rx] Tamsulosin [Flomax] 0.4 mg PO PC-BRKFST #30 tab 09/08/21 [Rx] Follow up Appointment(s)/Referral(s): Zainab Patrick MD [Primary Care Provider] - 1 Week Steven Oneal DO [STAFF PHYSICIAN] - 1 Week Marshall Loya MD [STAFF PHYSICIAN] - 1 Week Ambulatory/Diagnostic Orders: Comprehensive Metabolic Panel [LAB.AMB] Location: None Selected Discharge Disposition: HOME WITH HOME HEALTH SERVICES
[2021-09-08 09:54] LABS: Albumin 3.4 g/dL (3.8-4.9); Albumin/Globulin Ratio 1.31 (1.60-3.17); Anion Gap 11.9 mmol/L (10.00-18.00); BUN/Creat Ratio 22.21 Ratio (12.00-20.00); Blood Urea Nitrogen 42.2 mg/dL (9.0-27.0); Calcium 9.1 mg/dL (8.7-10.3); Carbon Dioxide 26.1 mmol/L (20.0-27.5); Globulin 2.6 g/dL (1.6-3.3); Magnesium 2.1 mg/dL (1.5-2.4); Non-African American GFR(CKD) 32.8 (60.0-200.0); Potassium 4.1 mmol/L (3.5-5.5); Total Bilirubin 0.5 mg/dL (0.30-1.20)
[2021-09-08 10:36] VITALS: RESP 20
--- NOTE | 2021-09-08 10:55 | P.PN ---
Subjective Patient is seen in follow for acute kidney injury. Renal function improving. Rogers catheter had to be reinserted due to persistent urinary retention. Nonoliguric. Oral intake is good. No vomiting or diarrhea. Hemodynamically stable. On 3 L is a cannula. No active complaints. Possible discharge home today. Vital signs are stable. General: Awake and alert. No acute distress. HEENT: Head exam is unremarkable. LUNGS: Breath sounds decreased. HEART: Rate and Rhythm are regular. ABDOMEN: Soft, no distention. EXTREMITITES: No edema. Objective - Vital Signs Vital signs: Vital Signs Temp 97.9 F 09/08/21 08:00 Pulse 84 09/08/21 08:58 Resp 20 09/08/21 08:00 BP 112/75 09/08/21 08:00 Pulse Ox 95 09/08/21 08:00 Intake & Output 09/07/21 09/08/21 09/08/21 18:59 06:59 18:59 Intake Total 1080 1800 Output Total 1900 2800 200 Balance -820 -1000 -200 Intake: Intake, IV Titration 600 Amount Sodium Chloride 0.9% 1, 600 000 ml @ 50 mls/hr IV . Q20H [facility] Rx#:[id number] Oral 1080 1200 Output: Urine 1400 2400 Stool 500 400 200 Other: Voiding Method Self-Catheterization Indwelling Catheter Indwelling Catheter - Labs CBC & Chem 7: 09/08/21 03:47 09/08/21 03:47 Labs: Abnormal Lab Results - Last 24 Hours (Table) 09/07/21 09/07/21 09/08/21 Range/Units 07:11 19:58 03:47 RBC 3.82 L (4.40-5.60) X 10*6/uL Hct 39.5 L (39.6-50.0) % MCV 103.4 H (80.0-97.0) fL MCH 34.0 H (27.0-32.0) pg RDW 15.2 H (11.5-14.5) % MPV 12.5 H (9.5-12.2) fL BUN 45.0 H (9.0-27.0) mg/dL Creatinine 2.0 H (0.6-1.5) mg/dL Est GFR (CKD-EPI)AfAm 34.9 L (60.0-200.0) Est GFR (CKD-EPI)NonAf 30.1 L (60.0-200.0) BUN/Creatinine Ratio 22.06 H (12.00-20.00) Ratio Glucose (70-110) mg/dL POC Glucose (mg/dL) 168 H (75-99) mg/dL Total Protein 6.0 L (6.2-8.2) g/dL Albumin 3.7 L (3.8-4.9) g/dL Albumin/Globulin Ratio 1.54 L (1.60-3.17) g/dL 09/08/21 Range/Units 03:47 RBC (4.40-5.60) X 10*6/uL Hct (39.6-50.0) % MCV (80.0-97.0) fL MCH (27.0-32.0) pg RDW (11.5-14.5) % MPV (9.5-12.2) fL BUN 42.2 H (9.0-27.0) mg/dL Creatinine 1.9 H (0.6-1.5) mg/dL Est GFR (CKD-EPI)AfAm 38.0 L (60.0-200.0) Est GFR (CKD-EPI)NonAf 32.8 L (60.0-200.0) BUN/Creatinine Ratio 22.21 H (12.00-20.00) Ratio Glucose 115 H (70-110) mg/dL POC Glucose (mg/dL) (75-99) mg/dL Total Protein 6.0 L (6.2-8.2) g/dL Albumin 3.4 L (3.8-4.9) g/dL Albumin/Globulin Ratio 1.31 L (1.60-3.17) g/dL Assessment and Plan Plan: Assessment: 1. Acute kidney injury secondary to ATN secondary to hypotension, contrast-induced acute kidney injury further worsened with the use of diuretics. Received IV contrast on 08/31/2021. No hydronephrosis noted on CAT scan. Creatinine in July 2021 was near 1.5 (?baseline renal function) and was 8.14 this admission - 1.9 today. 2. Metabolic acidosis secondary to acute kidney injury. status post bicarb drip. Better. On oral bicarb. 3. Chronic systolic CHF with severe pulmonary hypertension. 4. Tongue cancer. 5. Diabetes mellitus. 6. Hypokalemia and hypomagnesemia from poor intake and intracellular shifting from IV bicarb. Replaced. 7. Urinary retention. Rogers catheter reinserted. On Flomax. Urology following. Plan: Hep-Lock IV fluids. Encouraged oral intake. Maintain midodrine. Cortisol level not low. Avoid nephrotoxins. Decrease bicarb to once daily. Patient to resume Lasix 40 mg once daily starting 09/10/2021. He was advised to monitor his weight closely at home and to call if gains more than 3 pounds in 1 week duration or develops edema. Follow up outpatient in 1 week. Repeat BMP and magnesium level 3-4 days postdischarge.
[2021-09-08 11:34] VITALS: PULSE 82
--- NOTE | 2021-09-08 14:25 | P.PN ---
Subjective Progress Note Date: 09/08/21 CHIEF COMPLAINT: Decreased urine output HISTORY OF PRESENT ILLNESS: Patient denies any abdominal pain. Ostomy is functioning. He is tolerating diet. Afebrile. They're planning on discharging patient this afternoon. Patient seen with Dr. johnson PHYSICAL EXAM: VITAL SIGNS: Reviewed. GENERAL: Well-developed in no acute distress. HEENT: No sclera icterus. Extraocular movements grossly intact. Moist buccal mucosa. Head is atraumatic, normocephalic. ABDOMEN: Soft. Nondistended. Patient has evidence of reducible hernia in the midline incision and evidence of a parastomal hernia on the right side of the abdomen. Ostomy is functioning. NEUROLOGIC: Alert and oriented. Cranial nerves II through XII grossly intact. ASSESSMENT: 1. 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 No evidence of bowel obstruction 2. Incisional hernia 3. Acute kidney injury followed by nephrology 4. UTI PLAN: -Recommend repair of parastomal and incisional hernia outpatient when patient is medically stable -Continue supportive care Physician Guide Dog Trainer note has been reviewed by physician. Signing provider agrees with the documented findings, assessment, and plan of care. Objective - Vital Signs Vital signs: Vital Signs Temp 97.9 F 09/08/21 08:00 Pulse 82 09/08/21 11:32 Resp 20 09/08/21 08:00 BP 112/75 09/08/21 08:00 Pulse Ox 95 09/08/21 08:00 Intake & Output 09/07/21 09/08/21 09/08/21 18:59 06:59 18:59 Intake Total 1080 1800 Output Total 1900 2800 200 Balance -820 -1000 -200 Weight 93.44 kg Intake: Intake, IV Titration 600 Amount Sodium Chloride 0.9% 1, 600 000 ml @ 50 mls/hr IV . Q20H [facility] Rx#:[id number] Oral 1080 1200 Output: Urine 1400 2400 Stool 500 400 200 Other: Voiding Method Self-Catheterization Indwelling Catheter Indwelling Catheter - Labs CBC & Chem 7: 09/08/21 03:47 09/08/21 03:47 Labs: Abnormal Lab Results - Last 24 Hours (Table) 09/07/21 09/08/21 09/08/21 Range/Units 19:58 03:47 03:47 RBC 3.82 L (4.40-5.60) X 10*6/uL Hct 39.5 L (39.6-50.0) % MCV 103.4 H (80.0-97.0) fL MCH 34.0 H (27.0-32.0) pg RDW 15.2 H (11.5-14.5) % MPV 12.5 H (9.5-12.2) fL BUN 42.2 H (9.0-27.0) mg/dL Creatinine 1.9 H (0.6-1.5) mg/dL Est GFR (CKD-EPI)AfAm 38.0 L (60.0-200.0) Est GFR (CKD-EPI)NonAf 32.8 L (60.0-200.0) BUN/Creatinine Ratio 22.21 H (12.00-20.00) Ratio Glucose 115 H (70-110) mg/dL POC Glucose (mg/dL) 168 H (75-99) mg/dL Total Protein 6.0 L (6.2-8.2) g/dL Albumin 3.4 L (3.8-4.9) g/dL Albumin/Globulin Ratio 1.31 L (1.60-3.17) g/dL
[2021-09-09] MEDS ORDERED: SODIUM BICARBONATE TAB 650 MG TAB PO SCH (09:00)
== END 2021-09-08 13:12 | disposition home health service (06) | DRG 683 ==
LOC: EC 10:52 → 4SSUR 15:55
PROVIDERS: ADMIT Internal Medicine Geriatric Medicine; ATTEND Internal Medicine Geriatric Medicine
DX: N17.9 Acute kidney failure, unspecified (principal); E87.2 Acidosis; I13.0 Hypertensive heart and chronic kidney disease with heart failure and stage 1 through stage 4 chronic kidney disease, or unspecified chronic kidney disease; I50.22 Chronic systolic (congestive) heart failure; J98.11 Atelectasis; N39.0 Urinary tract infection, site not specified; K56.7 Ileus, unspecified; E11.22 Type 2 diabetes mellitus with diabetic chronic kidney disease; E78.5 Hyperlipidemia, unspecified; E83.42 Hypomagnesemia; E87.6 Hypokalemia; H40.9 Unspecified glaucoma; I27.20 Pulmonary hypertension, unspecified; J44.9 Chronic obstructive pulmonary disease, unspecified; E11.42 Type 2 diabetes mellitus with diabetic polyneuropathy; I95.9 Hypotension, unspecified; T50.8X5A Adverse effect of diagnostic agents, initial encounter; T50.2X5A Adverse effect of carbonic-anhydrase inhibitors, benzothiadiazides and other diuretics, initial encounter; K43.2 Incisional hernia without obstruction or gangrene; K43.5 Parastomal hernia without obstruction or gangrene; K80.20 Calculus of gallbladder without cholecystitis without obstruction; M48.061 Spinal stenosis, lumbar region without neurogenic claudication; N17.0 Acute kidney failure with tubular necrosis; N18.9 Chronic kidney disease, unspecified; R33.8 Other retention of urine; M10.9 Gout, unspecified; K59.00 Constipation, unspecified; R35.0 Frequency of micturition; G47.33 Obstructive sleep apnea (adult) (pediatric); K21.9 Gastro-esophageal reflux disease without esophagitis; N40.0 Benign prostatic hyperplasia without lower urinary tract symptoms; Z79.82 Long term (current) use of aspirin; Z79.899 Other long term (current) drug therapy; Z80.42 Family history of malignant neoplasm of prostate; Z80.51 Family history of malignant neoplasm of kidney; Z83.3 Family history of diabetes mellitus; Z85.810 Personal history of malignant neoplasm of tongue; Z87.891 Personal history of nicotine dependence; Z90.79 Acquired absence of other genital organ(s); Z93.2 Ileostomy status; Z93.3 Colostomy status; Z96.1 Presence of intraocular lens; Z96.653 Presence of artificial knee joint, bilateral; Z98.42 Cataract extraction status, left eye; Z98.41 Cataract extraction status, right eye; Z87.19 Personal history of other diseases of the digestive system; Z88.0 Allergy status to penicillin; Z91.013 Allergy to seafood; Z92.21 Personal history of antineoplastic chemotherapy; Z92.3 Personal history of irradiation; X58.XXXA Exposure to other specified factors, initial encounter
CPT/HCPCS: 36415; 74018; 74176; 76770; 80053; 81001; 82150; 82533; 83690; 83735; 84100; 85025; 85027; 85610; 85730; 87086; 94640; 94760; 96361; 96365; 96367; 99285

== ENCOUNTER 2021-09-16 21:55 | Inpatient (IN) | payer MEDICARE, OTHER ==
--- NOTE | 2021-09-17 00:52 | ED ---
General Adult HPI - General Source: patient, RN notes reviewed Mode of arrival: wheelchair Limitations: no limitations <Dianna Romero - Last Filed: 09/17/21 02:54> <Yaw Kahn - Last Filed: 09/17/21 04:31> - General Chief complaint: Urogenital Stated complaint: Trouble urinating/catheter problem, Diff Breathing Time Seen by Provider: 09/17/21 00:15 - History of Present Illness Initial comments: 81-year-old male presents to the emergency department for evaluation of Nguyen catheter malfunction. Patient states his catheter was placed approximately one week ago upon discharge from the hospital due to inability to urinate. States his catheter had been functioning fine until this evening. Reports minimal output the past 3 hours. Patient denies any known cause for displacement of the catheter. Does complain of a sensation of abdominal fullness and discomfort. States he does have COPD and wears oxygen at 3 L. Denies fever, chills, chest pain, difficulty breathing, abdominal pain, nausea, vomiting, or dysuria. (Dianna Romero) - Related Data Home Medications Medication Instructions Recorded Confirmed Acetaminophen [Tylenol 8 Hour] 1,300 mg PO BID 07/24/21 09/04/21 Albuterol Sulfate [Proair Hfa] 2 puff INHALATION RT-Q4H PRN 07/24/21 09/04/21 Allopurinol [Zyloprim] 100 mg PO BID 07/24/21 09/04/21 Aspirin EC [Ecotrin Low Dose] 81 mg PO DAILY 07/24/21 09/04/21 Atorvastatin [Lipitor] 40 mg PO DAILY 07/24/21 09/04/21 Cyanocobalamin [Vitamin B-12] 500 mcg PO DAILY 07/24/21 09/04/21 Dorzolamide 2% [Trusopt 2%] 1 drop BOTH EYES BID 07/24/21 09/04/21 Latanoprost/Pf [Latanoprost 0.005% 1 drop BOTH EYES HS 07/24/21 09/04/21 Eye Drop] Magnesium Oxide 400 mg PO HS 07/24/21 09/04/21 Metoprolol Succinate (ER) [Toprol 100 mg PO DAILY 07/24/21 09/04/21 XL] Midodrine HCl [ProAmatine] 10 mg PO TID 07/24/21 09/04/21 Multivitamins, Thera [Multivitamin 1 tab PO DAILY 07/24/21 09/04/21 (formulary)] [place]-3 Fatty Acids/Fish Oil [Fish 1 cap PO DAILY 07/24/21 09/04/21 Oil 1,000 mg Softgel] Pantoprazole [Protonix] 40 mg PO BID 07/24/21 09/04/21 Umeclidinium Brm/Vilanterol Tr 1 puff INHALATION RT-DAILY 07/24/21 09/04/21 [Anoro Ellipta 62.5-25 Mcg INH] Chlorhexidine Gluconate [Peridex] 15 ml PO QID 09/04/21 09/04/21 Previous Rx's Medication Instructions Recorded Furosemide [Lasix] 40 mg PO DAILY #0 09/08/21 Potassium Chloride ER [K-Dur 10] 10 meq PO DAILY #30 tab 09/08/21 Sodium Bicarbonate Tab 650 mg PO DAILY #20 tab 09/08/21 Tamsulosin [Flomax] 0.4 mg PO PC-BRKFST #30 tab 09/08/21 Allergies Allergy/AdvReac Type Severity Reaction Status Date / Time Penicillins Allergy Rash/Hives Verified 09/16/21 22:46 shellfish derived [Shellfish] Allergy Nausea & Verified 09/16/21 22:46 Vomiting Review of Systems ROS Other: All systems not noted in ROS Statement are negative. <Dianna Romero - Last Filed: 09/17/21 02:54> ROS Other: All systems not noted in ROS Statement are negative. <Yaw Kahn - Last Filed: 09/17/21 04:31> ROS Statement: Those systems with pertinent positive or pertinent negative responses have been documented in the HPI. 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 History of Any Multi-Drug Resistant Organisms: None Reported Past Surgical History: Bowel Resection, Joint Replacement, Prostate Surgery Additional Past Surgical History / Comment(s): Colostomy, TURP, R total knee arthroplasty, bilateral cataract removals/lens implants. Past Anesthesia/Blood Transfusion Reactions: No Reported Reaction Past Psychological History: No Psychological Hx Reported Smoking Status: Former smoker Past Alcohol Use History: None Reported Past Drug Use History: None Reported - Past Family History Father Additional Family Medical History / Comment(s): Father lived to be 91 yrs old. He had a pacer. Mother Family Medical History: Diabetes Mellitus Additional Family Medical History / Comment(s): kidney cancer <Dianna Romero - Last Filed: 09/17/21 02:54> General Exam Limitations: no limitations (Well-developed, well-nourished male in no acute distress.) General appearance: alert, in no apparent distress Eye exam: Present: normal appearance. Absent: scleral icterus, conjunctival injection Respiratory exam: Present: normal lung sounds bilaterally, other (Patient wears oxygen at 3 L via nasal cannula at all times.). Absent: respiratory distress, wheezes, rales, rhonchi, stridor, chest wall tenderness Cardiovascular Exam: Present: normal rhythm, bradycardia, normal heart sounds. Absent: systolic murmur, diastolic murmur, rubs, gallop, clicks GI/Abdominal exam: Present: soft, normal bowel sounds, other (Colostomy present). Absent: distended, tenderness, guarding, rebound, rigid exam: Present: other (Nguyen catheter present. <100m ml urine output in nguyen bag. ) Back exam: Absent: CVA tenderness (R), CVA tenderness (L) Neurological exam: Present: alert, oriented X3 Psychiatric exam: Present: normal affect, normal mood <Dianna Romero - Last Filed: 09/17/21 02:54> Course <Dianna Romero - Last Filed: 09/17/21 02:54> Vital Signs 09/17/21 09/17/21 09/17/21 01:48 02:28 02:36 Temperature 98.2 F Pulse Rate 52 L 38 L 36 L Respiratory 18 Rate Blood Pressure O2 Sat by Pulse 96 Oximetry 09/17/21 02:55 Temperature Pulse Rate 44 L Respiratory 18 Rate Blood Pressure 111/89 O2 Sat by Pulse 96 Oximetry - Reevaluation(s) Reevaluation #1: 09/17/21 01:22 Bladder scan: 20ml urine. Labs ordered to check renal function. Patient complaining of nausea and had an episode of dry heaves. Will give Zofran and reassess. 09/17/21 01:55 Upon reassessment, patient is found to be hypotensive and bradycardic. He complains of mild dizziness, but no further nausea. Also notified of critical potassium 6.6. Patient's care discussed with my attending, Dr. Kahn, who will assume care at this time. (Dianna Romero) EKG Findings - EKG Comments: EKG Findings:: EKG is sinus bradycardia 38 TN 120 QRS 96 QTc 436 <Yaw Kahn - Last Filed: 09/17/21 04:31> Medical Decision Making - Lab Data Result diagrams: 09/17/21 01:31 09/17/21 01:31 <Dianna Romero - Last Filed: 09/17/21 02:54> - Lab Data Result diagrams: 09/17/21 01:31 09/17/21 01:31 <Yaw Kahn - Last Filed: 09/17/21 04:31> - Medical Decision Making 81-year-old male with a past medical history of recent hospitalization for GENNARO and urinary retention presents to the emergency department for evaluation of decreased urine output. Upon exam, patient is resting comfortably. He is noted to be wearing oxygen which he states is normal for him due to history of COPD. Patient was bladder scanned showing 12-20 amount of urine. Nguyen was irrigated without difficulty. Patient did have an episode of nausea and reported mild dizziness during Nguyen evaluation therefore laboratory studies were obtained and vital signs were reassessed. Patient was found to be hypotensive and bradycardic. He is hyperkalemic and has worsening renal function, BUN 36, creatinine 3.01, GFR 19. This patient's care was discussed with my attending, Dr. Kahn, who assumed care for this patient. (Dianna Romero) - Lab Data Lab Results 09/17/21 09/17/21 09/17/21 Range/Units 01:31 01:31 02:24 WBC 11.7 H (3.8-10.6) k/uL RBC 3.85 L (4.30-5.90) m/uL Hgb 13.5 (13.0-17.5) gm/dL Hct 42.1 (39.0-53.0) % MCV 109.2 H (80.0-100.0) fL MCH 35.0 (25.0-35.0) pg MCHC 32.0 (31.0-37.0) g/dL RDW 15.5 (11.5-15.5) % Plt Count 233 (150-450) k/uL MPV 8.5 Neutrophils % 76 % Lymphocytes % 16 % Monocytes % 5 % Eosinophils % 1 % Basophils % 1 % Neutrophils # 8.9 H (1.3-7.7) k/uL Lymphocytes # 1.9 (1.0-4.8) k/uL Monocytes # 0.5 (0-1.0) k/uL Eosinophils # 0.1 (0-0.7) k/uL Basophils # 0.1 (0-0.2) k/uL Manual Slide Review Performed Macrocytosis Marked A PT (9.0-12.0) sec INR (<1.2) Sodium 132 L (137-145) mmol/L Potassium 6.6 H* (3.5-5.1) mmol/L Chloride 97 L (98-107) mmol/L Carbon Dioxide 19 L (22-30) mmol/L Anion Gap 16 mmol/L BUN 36 H (9-20) mg/dL Creatinine 3.01 H (0.66-1.25) mg/dL Est GFR (CKD-EPI)AfAm 22 (>60 ml/min/1.73 sqM) Est GFR (CKD-EPI)NonAf 19 (>60 ml/min/1.73 sqM) Glucose 131 H (74-99) mg/dL Calcium 9.3 (8.4-10.2) mg/dL Phosphorus 5.2 H (2.5-4.5) mg/dL Magnesium 1.3 L (1.6-2.3) mg/dL Total Bilirubin 1.5 H (0.2-1.3) mg/dL AST 44 (17-59) U/L ALT 30 (4-49) U/L Alkaline Phosphatase 78 (38-126) U/L Troponin I (0.000-0.034) ng/mL Total Protein 7.1 (6.3-8.2) g/dL Albumin 3.9 (3.5-5.0) g/dL TSH 2.520 (0.465-4.680) mIU/L 09/17/21 09/17/21 Range/Units 02:24 02:24 WBC (3.8-10.6) k/uL RBC (4.30-5.90) m/uL Hgb (13.0-17.5) gm/dL Hct (39.0-53.0) % MCV (80.0-100.0) fL MCH (25.0-35.0) pg MCHC (31.0-37.0) g/dL RDW (11.5-15.5) % Plt Count (150-450) k/uL MPV Neutrophils % % Lymphocytes % % Monocytes % % Eosinophils % % Basophils % % Neutrophils # (1.3-7.7) k/uL Lymphocytes # (1.0-4.8) k/uL Monocytes # (0-1.0) k/uL Eosinophils # (0-0.7) k/uL Basophils # (0-0.2) k/uL Manual Slide Review Macrocytosis PT 12.0 (9.0-12.0) sec INR 1.1 (<1.2) Sodium (137-145) mmol/L Potassium (3.5-5.1) mmol/L Chloride (98-107) mmol/L Carbon Dioxide (22-30) mmol/L Anion Gap mmol/L BUN (9-20) mg/dL Creatinine (0.66-1.25) mg/dL Est GFR (CKD-EPI)AfAm (>60 ml/min/1.73 sqM) Est GFR (CKD-EPI)NonAf (>60 ml/min/1.73 sqM) Glucose (74-99) mg/dL Calcium (8.4-10.2) mg/dL Phosphorus (2.5-4.5) mg/dL Magnesium (1.6-2.3) mg/dL Total Bilirubin (0.2-1.3) mg/dL AST (17-59) U/L ALT (4-49) U/L Alkaline Phosphatase (38-126) U/L Troponin I 0.109 H* (0.000-0.034) ng/mL Total Protein (6.3-8.2) g/dL Albumin (3.5-5.0) g/dL TSH (0.465-4.680) mIU/L Critical Care Time Critical Care Time: Yes Total Critical Care Time: 31 <Yaw Kahn - Last Filed: 09/17/21 04:31> Disposition <Dianna Romero - Last Filed: 09/17/21 02:54> Is patient prescribed a controlled substance at d/c from ED?: No <Yaw Kahn - Last Filed: 09/17/21 04:31> Clinical Impression: Acute kidney injury, Hyperkalemia, Weakness, Hypomagnesemia, NSTEMI (non-ST elevated myocardial infarction) Disposition: ADMITTED IP TO THIS HOSP Condition: Critical Referrals: Zainab Patrick MD [Primary Care Provider] - 1-2 days
[2021-09-17] MEDS ORDERED: ONDANSETRON 4 MG/2 ML VIAL IVP STA (01:22)
[2021-09-17 01:48] LABS: Basophils # (A) 0.1 k/uL (0-0.2); Basophils % (A) 1 %; Eosinophils # (A) 0.1 k/uL (0-0.7); Eosinophils % (A) 1 %; HCT 42.1 % (39.0-53.0); HGB 13.5 gm/dL (13.0-17.5); Lymphocytes # (A) 1.9 k/uL (1.0-4.8); Lymphocytes % (A) 16 %; MCV 109.2 fL (80.0-100.0); Macrocytosis Marked; Mean Platelet Volume 8.5; Monocytes # (A) 0.5 k/uL (0-1.0); Monocytes % (A) 5 %; Neutrophils # (A) 8.9 k/uL (1.3-7.7); Neutrophils % (A) 76 %; Platelet Count 233 k/uL (150-450); RBC 3.85 m/uL (4.30-5.90); RDW 15.5 % (11.5-15.5); WBC 11.7 k/uL (3.8-10.6)
[2021-09-17 01:58] LABS: Albumin 3.9 g/dL (3.5-5.0); Calcium 9.3 mg/dL (8.4-10.2); Total Bilirubin 1.5 mg/dL (0.2-1.3); Total Protein 7.1 g/dL (6.3-8.2)
[2021-09-17 01:59] LABS: Potassium 6.6 mmol/L (3.5-5.1)
[2021-09-17] MEDS ORDERED: DEXTROSE 50% SYRINGE 50 ML IVP STA ×2 (02:07→04:45)
[2021-09-17] MEDS ORDERED: ALBUTEROL NEBULIZED 2.5 MG/3 ML INHALATION STA (02:07)
[2021-09-17] MEDS ORDERED: SODIUM BICARB 8.4% 50 ML SYR (1 MEQ/ML) IV STA ×3 (02:07→04:45)
[2021-09-17] MEDS ORDERED: methylPREDNISolone SOD SUCCI 125 MG/2 ML VIAL IV STA (02:07)
[2021-09-17] MEDS ORDERED: SODIUM CHLORIDE 0.9% 1,000 ML IV STA (02:07)
[2021-09-17] MEDS ORDERED: INSULIN REGULAR 100 UNIT/ML VIAL (IV) IV ONE ×2 (02:07→04:45)
[2021-09-17] MEDS ORDERED: SODIUM CHLORIDE 0.9% 2,000 ML IV STA (02:07)
[2021-09-17] MEDS ORDERED: ATROPINE SULFATE 0.1 MG/ML 10ML SYRINGE IV STA (02:11)
[2021-09-17] MEDS ORDERED: ALBUTEROL NEB (CONC) 2.5 MG/0.5 ML INHALATION STA (02:18)
[2021-09-17] MEDS: SODIUM CHLORIDE 0.9% 1,000 ML IV SCH ×3 (02:45→17:55)
[2021-09-17 02:57] LABS: INR 1.1 (<1.2)
[2021-09-17 03:05] LABS: Magnesium 1.3 mg/dL (1.6-2.3); Phosphorus 5.2 mg/dL (2.5-4.5)
[2021-09-17] MEDS ORDERED: ONDANSETRON 4 MG/2 ML VIAL IVP PRN (04:06)
[2021-09-17] MEDS ORDERED: NALOXONE 0.4 MG/ML 1 ML VIAL IV PRN (04:06)
[2021-09-17] MEDS ORDERED: MORPHINE SULFATE 4 MG/ML SYRINGE IV PRN (04:06)
[2021-09-17] MEDS ORDERED: MAGNESIUM OXIDE 400 MG TAB PO STA (04:09)
[2021-09-17] MEDS: MAGNESIUM SULFATE-D5W PMX 1 GM in DEXTROSE/WATER 1 100ML.BAG IVPB SCH ×2 (04:21→05:02)
[2021-09-17] MEDS ORDERED: NOREPINEPHRINE 32 MG in SODIUM CHLORIDE 0.9% 218 ML IV ONE (04:43)
--- NOTE | 2021-09-17 04:45 | ED ---
Medical Decision Making - Medical Decision Making 81 male to the emergency department for evaluation of recurrent significant hypotension. Patient was central line placed and placed on pressors - Lab Data Result diagrams: 09/17/21 01:31 09/17/21 01:31 Lab Results 09/17/21 09/17/21 09/17/21 Range/Units 01:31 01:31 02:24 WBC 11.7 H (3.8-10.6) k/uL RBC 3.85 L (4.30-5.90) m/uL Hgb 13.5 (13.0-17.5) gm/dL Hct 42.1 (39.0-53.0) % MCV 109.2 H (80.0-100.0) fL MCH 35.0 (25.0-35.0) pg MCHC 32.0 (31.0-37.0) g/dL RDW 15.5 (11.5-15.5) % Plt Count 233 (150-450) k/uL MPV 8.5 Neutrophils % 76 % Lymphocytes % 16 % Monocytes % 5 % Eosinophils % 1 % Basophils % 1 % Neutrophils # 8.9 H (1.3-7.7) k/uL Lymphocytes # 1.9 (1.0-4.8) k/uL Monocytes # 0.5 (0-1.0) k/uL Eosinophils # 0.1 (0-0.7) k/uL Basophils # 0.1 (0-0.2) k/uL Manual Slide Review Performed Macrocytosis Marked A PT (9.0-12.0) sec INR (<1.2) Sodium 132 L (137-145) mmol/L Potassium 6.6 H* (3.5-5.1) mmol/L Chloride 97 L (98-107) mmol/L Carbon Dioxide 19 L (22-30) mmol/L Anion Gap 16 mmol/L BUN 36 H (9-20) mg/dL Creatinine 3.01 H (0.66-1.25) mg/dL Est GFR (CKD-EPI)AfAm 22 (>60 ml/min/1.73 sqM) Est GFR (CKD-EPI)NonAf 19 (>60 ml/min/1.73 sqM) Glucose 131 H (74-99) mg/dL Calcium 9.3 (8.4-10.2) mg/dL Phosphorus 5.2 H (2.5-4.5) mg/dL Magnesium 1.3 L (1.6-2.3) mg/dL Total Bilirubin 1.5 H (0.2-1.3) mg/dL AST 44 (17-59) U/L ALT 30 (4-49) U/L Alkaline Phosphatase 78 (38-126) U/L Troponin I (0.000-0.034) ng/mL Total Protein 7.1 (6.3-8.2) g/dL Albumin 3.9 (3.5-5.0) g/dL TSH 2.520 (0.465-4.680) mIU/L 09/17/21 09/17/21 Range/Units 02:24 02:24 WBC (3.8-10.6) k/uL RBC (4.30-5.90) m/uL Hgb (13.0-17.5) gm/dL Hct (39.0-53.0) % MCV (80.0-100.0) fL MCH (25.0-35.0) pg MCHC (31.0-37.0) g/dL RDW (11.5-15.5) % Plt Count (150-450) k/uL MPV Neutrophils % % Lymphocytes % % Monocytes % % Eosinophils % % Basophils % % Neutrophils # (1.3-7.7) k/uL Lymphocytes # (1.0-4.8) k/uL Monocytes # (0-1.0) k/uL Eosinophils # (0-0.7) k/uL Basophils # (0-0.2) k/uL Manual Slide Review Macrocytosis PT 12.0 (9.0-12.0) sec INR 1.1 (<1.2) Sodium (137-145) mmol/L Potassium (3.5-5.1) mmol/L Chloride (98-107) mmol/L Carbon Dioxide (22-30) mmol/L Anion Gap mmol/L BUN (9-20) mg/dL Creatinine (0.66-1.25) mg/dL Est GFR (CKD-EPI)AfAm (>60 ml/min/1.73 sqM) Est GFR (CKD-EPI)NonAf (>60 ml/min/1.73 sqM) Glucose (74-99) mg/dL Calcium (8.4-10.2) mg/dL Phosphorus (2.5-4.5) mg/dL Magnesium (1.6-2.3) mg/dL Total Bilirubin (0.2-1.3) mg/dL AST (17-59) U/L ALT (4-49) U/L Alkaline Phosphatase (38-126) U/L Troponin I 0.109 H* (0.000-0.034) ng/mL Total Protein (6.3-8.2) g/dL Albumin (3.5-5.0) g/dL TSH (0.465-4.680) mIU/L Critical Care Time Critical Care Time: Yes Total Critical Care Time: 31 Disposition Clinical Impression: Acute kidney injury, Hyperkalemia, Weakness, Hypomagnesemia, NSTEMI (non-ST elevated myocardial infarction), Hypotension Disposition: ADMITTED IP TO THIS [facility] Condition: Critical
[2021-09-17 06:25] LABS: Potassium 5.3 mmol/L (3.5-5.1)
[2021-09-17 08:02] LABS: Glucose,Whole Blood 180 mg/dL (75-99)
[2021-09-17] MEDS ORDERED: Magnesium Replacement Protocol 1 EACH MISC MISCELLANE PRN (08:14)
[2021-09-17] MEDS ORDERED: MAGNESIUM SULFATE-D5W PMX 1 GM in DEXTROSE/WATER 1 100ML.BAG IVPB SCH (08:15)
--- NOTE | 2021-09-17 09:49 | XR ---
EXAMINATION TYPE: XR chest 1V portable DATE OF EXAM: 09/17/2021 COMPARISON: 07/24/2021 HISTORY: Shortness of breath TECHNIQUE: Single frontal view of the chest is obtained. FINDINGS: There has been interval insertion of a right jugular central venous catheter which/R junction. The heart is moderately enlarged. The pulmonary vessels appear mildly cephalized. There is mild inter stitial opacities in the lung bases likely reflecting mild atelectasis or interstitial fibrosis. There is no pneumothorax or large pleural effusion. The osseous structures are intact IMPRESSION: Right jugular central venous catheter tip in the SVC/R junction. Otherwise no significan t interval change compared to 07/24/2021 .
[2021-09-17] MEDS: PANTOPRAZOLE 40 MG/10 ML VIAL IV SCH (10:36)
[2021-09-17] MEDS ORDERED: DOPamine DRIP 800 MG in DEXTROSE/WATER 1 250ML.BAG IV SCH (11:00)
--- NOTE | 2021-09-17 11:34 | P.CRDCN ---
History of Present Illness Consult date: 09/17/21 History of present illness: The patient is a 81-year-old gentleman who is known to her service from before with a past medical history significant for hypertension and dyslipidemia as well as COPD, presented to the emergency department complaining of mainly shortness of breath. The patient just was discharged from the hospital recently after he was admitted with acute renal failure felt to be secondary to obstructive uropathy and he was discharged with a Rogers catheter and supposed to be seen by the urology service in a week. During the last hospital admission we consulted to see the patient for mildly abnormal troponin which we treated medically because he was not experiencing any pain in the chest. This time the patient presented to the hospital not feeling well. He has been more short of breath. He was feeling overall weak as well. No symptoms of any chest pain or chest discomfort and no presyncope or syncope. In the ER he was found to be hypotensive and bradycardic. Central line was placed and the patient was started on norepinephrine and he was sent to the intensive care unit. The patient was receiving metoprolol succinate at 100 mg by mouth twice a day which is currently on hold. He underwent a workup also in the ER including a chest x- ray which did not show any acute abnormalities. A troponin first set came in to be slightly abnormal. He is again in acute renal failure and also please note that the patient was hyperkalemic. Currently on norepinephrine his pressure has been above 90 mmHg systolic. The patient was seen and evaluated at bedside and he denies any chest pain or chest discomfort and he stated that he is feeling better at this point. The last echocardiogram revealed mildly impaired LV function was EF between 40-45%. 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 History of Any Multi-Drug Resistant Organisms: None Reported Past Surgical History: Bowel Resection, Joint Replacement, Prostate Surgery Additional Past Surgical History / Comment(s): Colostomy, TURP, R total knee arthroplasty, bilateral cataract removals/lens implants. Past Anesthesia/Blood Transfusion Reactions: No Reported Reaction Past Psychological History: No Psychological Hx Reported Additional Psychological History / Comment(s): Pt resides with his spouse. He has [facility] home care. He uses a walker to ambulate. His spouse manages his meds and assists with washing up. Spouse also is his pick up driver. Smoking Status: Former smoker Past Alcohol Use History: None Reported Additional Past Alcohol Use History / Comment(s): Pt started smoking in 1953 and quit in 1976. Pt no longer drinks but has hx of alcoholism. Past Drug Use History: None Reported - Past Family History Father Additional Family Medical History / Comment(s): Father lived to be 91 yrs old. He had a pacer. Mother Family Medical History: Diabetes Mellitus Additional Family Medical History / Comment(s): kidney cancer Medications and Allergies Home Medications Medication Instructions Recorded Confirmed Type Acetaminophen [Tylenol 8 Hour] 1,300 mg PO BID 07/24/21 09/04/21 History Albuterol Sulfate [Proair Hfa] 2 puff INHALATION RT-Q4H PRN 07/24/21 09/04/21 History Allopurinol [Zyloprim] 100 mg PO BID 07/24/21 09/04/21 History Aspirin EC [Ecotrin Low Dose] 81 mg PO DAILY 07/24/21 09/04/21 History Atorvastatin [Lipitor] 40 mg PO DAILY 07/24/21 09/04/21 History Cyanocobalamin [Vitamin B-12] 500 mcg PO DAILY 07/24/21 09/04/21 History Dorzolamide 2% [Trusopt 2%] 1 drop BOTH EYES BID 07/24/21 09/04/21 History Latanoprost/Pf [Latanoprost 0.005% 1 drop BOTH EYES HS 07/24/21 09/04/21 History Eye Drop] Magnesium Oxide 400 mg PO HS 07/24/21 09/04/21 History Metoprolol Succinate (ER) [Toprol 100 mg PO DAILY 07/24/21 09/04/21 History XL] Midodrine HCl [ProAmatine] 10 mg PO TID 07/24/21 09/04/21 History Multivitamins, Thera [Multivitamin 1 tab PO DAILY 07/24/21 09/04/21 History (formulary)] [place]-3 Fatty Acids/Fish Oil [Fish 1 cap PO DAILY 07/24/21 09/04/21 History Oil 1,000 mg Softgel] Pantoprazole [Protonix] 40 mg PO BID 07/24/21 09/04/21 History Umeclidinium Brm/Vilanterol Tr 1 puff INHALATION RT-DAILY 07/24/21 09/04/21 History [Anoro Ellipta 62.5-25 Mcg INH] Chlorhexidine Gluconate [Peridex] 15 ml PO QID 09/04/21 09/04/21 History Furosemide [Lasix] 40 mg PO DAILY #0 09/08/21 09/04/21 Rx Potassium Chloride ER [K-Dur 10] 10 meq PO DAILY #30 tab 09/08/21 Rx Sodium Bicarbonate Tab 650 mg PO DAILY #20 tab 09/08/21 Rx Tamsulosin [Flomax] 0.4 mg PO PC-BRKFST #30 tab 09/08/21 Rx Allergies Allergy/AdvReac Type Severity Reaction Status Date / Time Penicillins Allergy Rash/Hives Verified 09/16/21 22:46 shellfish derived [Shellfish] Allergy Nausea & Verified 09/16/21 22:46 Vomiting Physical Exam Vitals: Vital Signs Temp Pulse Resp BP Pulse Ox 09/17/21 10:30 44 L 19 121/68 95 09/17/21 10:15 45 L 23 135/76 94 L 09/17/21 10:00 44 L 23 119/69 95 09/17/21 09:45 47 L 23 112/76 94 L 09/17/21 09:30 45 L 13 96/72 92 L 09/17/21 09:15 55 L 25 H 97/60 95 09/17/21 09:00 51 L 14 97/63 95 09/17/21 08:45 50 L 18 102/68 96 09/17/21 08:30 98.4 F 52 L 19 101/64 96 09/17/21 08:15 51 L 9 L 96/70 97 09/17/21 08:00 52 L 7 L 84/61 09/17/21 07:57 52 L 11 L 09/17/21 07:29 49 L 18 114/61 97 09/17/21 06:33 50 L 18 111/67 97 09/17/21 06:17 50 L 18 104/76 98 09/17/21 05:48 43 L 18 113/97 94 L 09/17/21 04:14 42 L 16 65/51 95 09/17/21 02:55 44 L 18 111/89 96 09/17/21 02:36 36 L 09/17/21 02:28 38 L 09/17/21 01:48 98.2 F 52 L 18 96 Intake and Output 09/16/21 09/17/21 09/17/21 22:59 06:59 14:59 Intake Total 270.877 Output Total 70 Balance 200.877 Intake: Intake, IV Titration 270.877 Amount Norepinephrine 32 mg In 10.877 Sodium Chloride 0.9% 218 ml @ 0.05 MCG/KG/MIN 2.19 mls/hr IV .Q24H ONE Rx#: [id number] Sodium Chloride 0.9% 1, 260 000 ml @ 130 mls/hr IV . Q7H42M [facility] Rx#:[id number] Output: Urine 70 Other: Weight 93.44 kg 93.44 kg - Constitutional General appearance: no acute distress - Respiratory Respiratory: bilateral: diminished - Cardiovascular Rhythm: regular Results 09/17/21 01:31 09/17/21 06:00 Cardiac Enzymes 09/17/21 09/17/21 Range/Units 01:31 02:24 AST 44 (17-59) U/L Troponin I 0.109 H* (0.000-0.034) ng/mL Coagulation 09/17/21 Range/Units 02:24 PT 12.0 (9.0-12.0) sec CBC 09/17/21 Range/Units 01:31 WBC 11.7 H (3.8-10.6) k/uL RBC 3.85 L (4.30-5.90) m/uL Hgb 13.5 (13.0-17.5) gm/dL Hct 42.1 (39.0-53.0) % Plt Count 233 (150-450) k/uL Comprehensive Metabolic Panel 09/17/21 09/17/21 Range/Units 01:31 06:00 Sodium 132 L 135 L (137-145) mmol/L Potassium 6.6 H* 5.3 H (3.5-5.1) mmol/L Chloride 97 L 104 (98-107) mmol/L Carbon Dioxide 19 L 20 L (22-30) mmol/L BUN 36 H 34 H (9-20) mg/dL Creatinine 3.01 H 2.92 H (0.66-1.25) mg/dL Glucose 131 H 153 H (74-99) mg/dL Calcium 9.3 8.0 L (8.4-10.2) mg/dL AST 44 (17-59) U/L ALT 30 (4-49) U/L Alkaline Phosphatase 78 (38-126) U/L Total Protein 7.1 (6.3-8.2) g/dL Albumin 3.9 (3.5-5.0) g/dL Current Medications Generic Name Dose Route Start Last Admin Trade Name Freq PRN Reason Stop Dose Admin Sodium Chloride 1,000 mls @ 130 mls/hr 09/17/21 02:15 09/17/21 10:36 Saline 0.9% IV 130 mls/hr .Q7H42M MARTINA Administration Norepinephrine Bitartrate 32 250 mls @ 2.19 mls/hr 09/17/21 04:43 09/17/21 10:34 mg/ Sodium Chloride IV 09/18/21 04:42 0.2 mcg/kg/min .Q24H ONE 8.76 mls/hr Titration Protocol 0.05 MCG/KG/MIN Dopamine HCl/Dextrose 800 mg/ 250 mls @ 8.76 mls/hr 09/17/21 11:00 IV Solution IV .Q24H MARTINA Protocol 5 MCG/KG/MIN Morphine Sulfate 4 mg 09/17/21 04:06 Morphine Sulfate 4 Mg/Ml Syringe IV Q4HR PRN Severe Pain Naloxone HCl 0.2 mg 09/17/21 04:06 Naloxone 0.4 Mg/Ml 1 Ml Vial IV Q2M PRN Opioid Reversal Ondansetron HCl 4 mg 09/17/21 04:06 Ondansetron 4 Mg/2 Ml Vial IVP Q8HR PRN Nausea And Vomiting Pantoprazole Sodium 40 mg 09/17/21 09:00 09/17/21 10:36 Pantoprazole 40 Mg/10 Ml Vial IV 40 mg DAILY MARTINA Administration Intake and Output 09/16/21 09/17/21 09/17/21 22:59 06:59 14:59 Intake Total 270.877 Output Total 70 Balance 200.877 Intake: Intake, IV Titration 270.877 Amount Norepinephrine 32 mg In 10.877 Sodium Chloride 0.9% 218 ml @ 0.05 MCG/KG/MIN 2.19 mls/hr IV .Q24H ONE Rx#: [id number] Sodium Chloride 0.9% 1, 260 000 ml @ 130 mls/hr IV . Q7H42M [facility] Rx#:[id number] Output: Urine 70 Other: Weight 93.44 kg 93.44 kg 09/17/21 01:31 09/17/21 06:00 Assessment and Plan Assessment: Assessment #1 symptomatic bradycardia in the setting of severe electrolytes abnormalities with hyperkalemia #2 acute renal failure #3 hyperkalemia secondary to acute renal failure #4 hypotension could be related to bradycardia. Sepsis to be ruled out in a patient who has a Rogers catheter in place #5 multiple comorbid conditions Plan #1 DC norepinephrine and start the patient on dopamine #2 hold any AV reno kenneth agents #3 monitor the kidney function and electrolytes #4 the patient doesn't seem in any overt congestive heart failure at this point #5 rule out sepsis #6 follow-up with the patient
--- NOTE | 2021-09-17 12:21 | P.CNPUL ---
History of Present Illness Consult date: 09/17/21 Requesting physician: Zainab Patrick Reason for consult: other (Profound hypotension, acute tubular necrosis, hyperkalemia) Chief complaint: Weakness, and unable to urinate. History of present illness: This is a 81-year-old white male with history of multiple medical problems including COPD, tongue cancer requiring resection over 2 months ago. hypertension, dyslipidemia, patient was recently in the hospital a few weeks ago for acute renal failure with obstructive uropathy and the patient was discharged after placement of a Rogers catheter and he was seen at the time by urology and by nephrology on consultation. Since discharge on 09/08, patient has been seen by urology on outpatient basis, and advised to keep the Rogers catheter in place. Patient presented to the ER yesterday with multiple symptoms including weakness, some shortness of breath, no cough, no wheezing, no chest pain, pat ient was feeling weak, and he was not noticing any urine in his Rogers catheter. Apparently before arrival to the ER, patient had a syncopal episode lasted seconds. Upon arrival to the ER, patient was noted to have hypotension requiring fluid boluses, patient received 2-1/2 L of fluid boluses, he had a central line placed by the ER physician,and he was started on norepinephrine. Patient was also noted to have sinus bradycardia upon evaluation in the ER. Patient received a treatment for his hyperkalemia, initial potassium was 6.6, however follow-up potassium was 5.3. Creatinine was 3.01 and it came down to 2.92 after fluid boluses. Troponin was elevated at 0.109. Cortisol level was normal thyroid profile was normal. Considering the patient's hypotension and considering his hyperkalemia and the fact the patient is requiring norepinephrine, I was asked to see the patient on consultation, and I accepted the patient for ICU admission. last echocardiogram showed LV dysfunction with e jection fraction of 40-45%. Chest x-ray showed no significant abnormalities. Minimal bibasilar atelectasis is noted Review of Systems Constitutional: Weakness fatigue malaise HEENT: Negative patient did have history of lung cancer requiring surgery at [facility], and a significant portion of his tongue has been resected Pulmonary: Minimal shortness of breath, patient is on home oxygen, he has COPD. Cardiac: As noted in HPI. GI: Negative. Genitourinary: As noted in HPI. Musculoskeletal: Weakness. Skin: Negative. Neurologic: Negative. Patient may have had a brief syncopal episode before arrival to the hospital. Psychiatric: Negative. Hematologic: Negative no clotting bleeding or bruising. Past Medical History Past Medical History: Cancer, Chest Pain / Angina, Heart Failure, COPD, Diabetes Mellitus, Eye Disorder, GERD/Reflux, Hyperlipidemia, Hypertension, Osteoarthritis (OA), Prostate Disorder, Renal Disease Additional Past Medical History / Comment(s): Leeann albicans/oral/on antibio tic, 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 History of Any Multi-Drug Resistant Organisms: None Reported Past Surgical History: Bowel Resection, Joint Replacement, Prostate Surgery Additional Past Surgical History / Comment(s): Colostomy, TURP, R total knee arthroplasty, bilateral cataract removals/lens implants. Past Anesthesia/Blood Transfusion Reactions: No Reported Reaction Past Psychological History: No Psychological Hx Reported Additional Psychological History / Comment(s): Pt resides with his spouse. He has [facility] home care. He uses a walker to ambulate. His spouse manages his meds and assists with washing up. Spouse also is his c[employer] company driver. Smoking Status: Former smoker Past Alcohol Use History: None Reported Additional Past Alcohol Use History / Comment(s): Pt started smoking in 1953 and quit in 1976. Pt no longer drinks but has hx of alcoholism. Past Drug Use History: None Reported - Past Family History Father Additional Family Medical History / Comment(s): Father lived to be 91 yrs old. He had a pacer. Mother Family Medical History: Diabetes Mellitus Additional Family Medical History / Comment(s): kidney cancer Medications and Allergies Home Medications Medication Instructions Recorded Confirmed Type Acetaminophen [Tylenol 8 Hour] 1,300 mg PO BID 07/24/21 09/04/21 History Albuterol Sulfate [Proair Hfa] 2 puff INHALATION RT-Q4H PRN 07/24/21 09/04/21 History Allopurinol [Zyloprim] 100 mg PO BID 07/24/21 09/04/21 History Aspirin EC [Ecotrin Low Dose] 81 mg PO DAILY 07/24/21 09/04/21 History Atorvastatin [Lipitor] 40 mg PO DAILY 07/24/21 09/04/21 History Cyanocobalamin [Vitamin B-12] 500 mcg PO DAILY 07/24/21 09/04/21 History Dorzolamide 2% [Trusopt 2%] 1 drop BOTH EYES BID 07/24/21 09/04/21 History Latanoprost/Pf [Latanoprost 0.005% 1 drop BOTH EYES HS 07/24/21 09/04/21 History Eye Drop] Magnesium Oxide 400 mg PO HS 07/24/21 09/04/21 History Metoprolol Succinate (ER) [Toprol 100 mg PO DAILY 07/24/21 09/04/21 History XL] Midodrine HCl [ProAmatine] 10 mg PO TID 07/24/21 09/04/21 History Multivitamins, Thera [Multivitamin 1 tab PO DAILY 07/24/21 09/04/21 History (formulary)] [place]-3 Fatty Acids/Fish Oil [Fish 1 cap PO DAILY 07/24/21 09/04/21 History Oil 1,000 mg Softgel] Pantoprazole [Protonix] 40 mg PO BID 07/24/21 09/04/21 History Umeclidinium Brm/Vilanterol Tr 1 puff INHALATION RT-DAILY 07/24/21 09/04/21 History [Anoro Ellipta 62.5-25 Mcg INH] Chlorhexidine Gluconate [Peridex] 15 ml PO QID 09/04/21 09/04/21 History Furosemide [Lasix] 40 mg PO DAILY #0 09/08/21 09/04/21 Rx Potassium Chloride ER [K-Dur 10] 10 meq PO DAILY #30 tab 09/08/21 Rx Sodium Bicarbonate Tab 650 mg PO DAILY #20 tab 09/08/21 Rx Tamsulosin [Flomax] 0.4 mg PO PC-BRKFST #30 tab 09/08/21 Rx Allergies Allergy/AdvReac Type Severity Reaction Status Date / Time Penicillins Allergy Rash/Hives Verified 09/16/21 22:46 shellfish derived [Shellfish] Allergy Nausea & Verified 09/16/21 22:46 Vomiting Physical Exam Vitals: Vital Signs Temp Pulse Resp BP Pulse Ox 09/17/21 10:30 44 L 19 121/68 95 09/17/21 10:15 45 L 23 135/76 94 L 09/17/21 10:00 44 L 23 119/69 95 09/17/21 09:45 47 L 23 112/76 94 L 09/17/21 09:30 45 L 13 96/72 92 L 09/17/21 09:15 55 L 25 H 97/60 95 09/17/21 09:00 51 L 14 97/63 95 09/17/21 08:45 50 L 18 102/68 96 09/17/21 08:30 98.4 F 52 L 19 101/64 96 09/17/21 08:15 51 L 9 L 96/70 97 09/17/21 08:00 52 L 7 L 84/61 09/17/21 07:57 52 L 11 L 09/17/21 07:29 49 L 18 114/61 97 09/17/21 06:33 50 L 18 111/67 97 09/17/21 06:17 50 L 18 104/76 98 09/17/21 05:48 43 L 18 113/97 94 L 09/17/21 04:14 42 L 16 65/51 95 09/17/21 02:55 44 L 18 111/89 96 09/17/21 02:36 36 L 09/17/21 02:28 38 L 09/17/21 01:48 98.2 F 52 L 18 96 Intake and Output 09/16/21 09/17/21 09/17/21 22:59 06:59 14:59 Intake Total 281.389 Output Total 70 Balance 211.389 Intake: Intake, IV Titration 281.389 Amount Norepinephrine 32 mg In 21.389 Sodium Chloride 0.9% 218 ml @ 0.05 MCG/KG/MIN 2.19 mls/hr IV .Q24H ONE Rx#: [id number] Sodium Chloride 0.9% 1, 260 000 ml @ 130 mls/hr IV . [id number] [facility] Rx#:[id number] Output: Urine 70 Other: Weight 93.44 kg 93.44 kg Physical Exam: Revealed a 81-year-old white male on 4 L nasal cannula, in no distress. Head: Atraumatic, normocephalic. HEENT:[Neck is supple.] [No neck masses.] [No thyromegaly.] [No JVD.] Right IJ central line is noted. Chest: [Symmetrical chest expansion, diminished breath sounds at the bases. No crackles or rhonchi or wheezes.] Cardiac Exam: Distant S1 and S2, no S3 gallop. 2/6 systolic murmur thought the precordium. Abdomen: [Soft, nontender, no megaly, no rebound, no guarding, normal bowel sounds.] Extremities: [No clubbing, no edema, no cyanosis.] Neurological Exam: [No focal neurologic deficit. Alert and oriented 3. Psychiatric: Normal mood affect and normal mental status examination. Skin: No rashes.] Results - Laboratory Findings CBC and BMP: 09/17/21 01:31 09/17/21 06:00 PT/INR, D-dimer PT 12.0 sec (9.0-12.0) 09/17/21 02:24 INR 1.1 (<1.2) 09/17/21 02:24 Abnormal lab findings: Abnormal Labs 09/17/21 09/17/21 09/17/21 01:31 01:31 02:24 WBC 11.7 H RBC 3.85 L MCV 109.2 H Neutrophils # 8.9 H Macrocytosis Marked A Sodium 132 L Potassium 6.6 H* Chloride 97 L Carbon Dioxide 19 L BUN 36 H Creatinine 3.01 H Glucose 131 H POC Glucose (mg/dL) Calcium Phosphorus 5.2 H Magnesium 1.3 L Total Bilirubin 1.5 H Troponin I 09/17/21 09/17/21 09/17/21 02:24 06:00 08:00 WBC RBC MCV Neutrophils # Macrocytosis Sodium 135 L Potassium 5.3 H Chloride Carbon Dioxide 20 L BUN 34 H Creatinine 2.92 H Glucose 153 H POC Glucose (mg/dL) 180 H Calcium 8.0 L Phosphorus Magnesium Total Bilirubin Troponin I 0.109 H* - Diagnostic Findings Chest x-ray: image reviewed (As noted in HPI.) Assessment and Plan Assessment: Impression: Hypotension secondary to bradycardia and hypovolemia Acute on chronic renal failure/acute on chronic kidney injury secondary to acute tubular necrosis secondary to hypotension and bradycardia. Strongly doubt sepsis. Chronic hypoxic respiratory failure secondary to COPD Hyperkalemia secondary to acute renal failure Possible acute non-ST elevation myocardial infarction. Type 2 diabetes. tongue cancer requiring resection at [facility] about 2 months ago. History of colostomy. Benign prostatic hypertrophy with outflow obstruction History of obstructive uropathy Chronic diabetic neuropathy Recommendation: Continue to monitor in the ICU Hold beta blockers Continue norepinephrine and titrate accordingly Continue IV fluids Continue to monitor electrolytes and address accordingly. As well as continue to monitor renal status BUN/creatinine. Resume home meds including bronchodilators. Continue GI prophylaxis. Continue to monitor sugars and address accordingly. Continue Rogers catheter. Cultures including urine and blood, but I strongly doubt sepsis based on the clinical history. Dopamine added as per cardiology for his profound bradycardia. And I believe that's appropriate. We'll continue to follow. Prognosis is relatively guarded Time with Patient: Greater than 30
[2021-09-17] MEDS ORDERED: ALBUTEROL NEBULIZED 2.5 MG/3 ML INHALATION PRN (12:32)
--- NOTE | 2021-09-17 12:51 | P.HPIM ---
History of Present Illness H&P Date: 09/17/21 Chief Complaint: Syncope, or low blood pressures dehydration Is a pleasant 81-year-old gentleman, weighing known to my practice, no history of COPD, tongue cancer, hypertension, hyperlipidemia, BPH with lower urinary tract pathology, gout, chronic pleural effusion, glaucoma and arthritis, history of bowel obstruction requiring resection, and colostomy. He had partial rese ction of the tongue approximately 08/23/2021 IN to the emergency room Secondary to passing out after walking short distances, in the hallway towards the kitchen. Patient did not have any seizure episode at that time, no chest pain, and no palpitations. Patient not been eating well, secondary to dental extraction few weeks ago. He comes in secondary to the blackout episode, probably suffice time, along with being lightheaded, prior to the fall. Patient does not have any new edema, no diuretics were changed during his last visit with me, patient is on midodrine 10 mg 3 times a day, for history of orthostatic hypotension. Patient is on Lasix prior to admission, he per her home dose which is not verified, 40 mg daily In the emergency room, patient is hypotensive, entry blood pressure 65 systolic patient required a central line, and placed on pressors. Anything, transferred to ICU, entry potassium 6.6, creatinine 1 and 33.01, BUN of 36, WBC count 11.7, hemoglobin 13.5 patient transferred to ICU, status post 3 L of fluid resuscitation in the emergency room, consulted with cardiology Dr. Moody, Dr. Herman pulmonary, and Dr. Perrin nephrology Review of systems: Constitutional: No fever, no chills, no night sweats. No weight change. Reports generalized weakness, reports fatigue. No daytime sleepiness. EENT: No headache. No blurred vision or double vision, no loss of vision. No loss of Hearing, no ringing in the ears, no dizziness. No nasal drainage or congestion. No epistaxis. No sore throat. Lungs: No shortness of breath, cough, no sputum production. No wheezing. Cardiovascular: No chest pain, no lower extremity edema. No palpitations. No paroxysmal nocturnal dyspnea. No orthopnea. No lightheadedness or dizziness. No syncopal episodes. Abdominal: No abdominal pain. No nausea, vomiting. No diarrhea. No constipation. No bloody or tarry stools.. No loss of appetite. Genitourinary: No dysuria, no increased frequency, urgency. No urinary retention. Rogers catheter in place. Musculoskeletal: No myalgias. No muscle weakness, no gait dysfunction, no frequent falls. No back pain. No neck pain. Integumentary: No wounds, no lesions. No rash or pruritus. No unusual bruising. No change in hair or nails. Neurologic: No aphasia. No facial droop. No change in mentation. No head injury. No headache. No paralysis. No paresthesia. Psychiatric: No depression. No anxiety. No mood swings. Endocrine: No abnormal blood sugars. No weight change. No excessive sweating or thirst. No cold intolerance. Physical exam: General: This is 81-year-old male. He is resting on the bed and appears to be in no acute distress. Derm: Skin warm and dry, normal coloration for ethnicity. Head: Atraumatic, normocephalic and symmetric. Eyes: EOMs intact, no lid lag, and anicteric sclera Mouth: no lip lesions, dry mucous membrane, has partial resection of one fourth of the tongue towards the left side, with good granulation tissue, no discharge, no open wound in the tongue, Cardiovascular: regular rate and rhythm with normal S1S2, systolic murmur, positive posterior tibial pulses bilaterally, and cap refill < 2 seconds. Lungs: Respirations even, regular, and unlabored on room air. Lungs CTA bilaterally, no rhonchi, no rales, no wheezing, and no accessory muscle usage. Abdominal: Obese abdomen soft, nontender to palpation, no guarding, no appreciable organomegaly. Ostomy right lower quadrant Ext: ROM intact. No gross muscle atrophy, no edema, no contractures Neuro: Speech clear, face symmetrical and CN II-XII grossly intact with no noted focal neuro deficits Psych: Alert and oriented to person, place, time, and situation. Appropriate and pleasant affect. Assessment and Plan of Care: Acute renal failure with history of CK D stage III B - t Rogers catheter- inserted for I's and O's -Strict I's and O's -Nephrology consult appreciated -Hold nephrotoxic medications provide gentle hydration -Hydration with IV fluids at 75 mL per hour and continued close monitoring with repeat labs. Hypovolemic shock, secondary to decreased oral intake recent dental procedure, no ongoing GI losses -Avoid diuretics 40 mg Lasix, which will be held - IV fluids for resuscitation, 3 L has been given the emergency room Check for pyuria, Cortisol level is normal Continue norepinephrine Restart midodrine 10 mg 3 times a day Nutritional support Patient in ICU Hyperkalemia, secondary to acute renal failure, and dehydration Tongue cancer, status post partial resection, 08/23/2021 To undergo radiation treatment, oncology is following, unknown regimen for chemotherapy Metabolic acidosis secondary to acute renal failure -Sodium bicarb drip and oral sodium bicarb per nephrology Bradycardia, heart rate is 40s, Hold metoprolol history of bowel obstruction resulting in resection and ostomy placement -Continue ostomy/colostomy care. Hypertension Currently hypotensive -Monitor vital signs closely and continue Toprol-XL. Hold Lasix and Toprol and resume Toprol 1 stabilized currently on norepinephrine Elevated troponin, most likely secondary to hypotension and demand Hyperlipidemia -Continue daily medication management with atorvastatin. Glaucoma -Continue daily medication regimen. BPH, with L UTS, Hold Flomax at this time secondary to suspected orthostatic hypotension and falls Check UA CODE STATUS: Full code DVT prophylaxis: Heparin DISCHARGE PLAN Home with [facility], consult with PT and OT added. 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 History of Any Multi-Drug Resistant Organisms: None Reported Past Surgical History: Bowel Resection, Joint Replacement, Prostate Surgery Additional Past Surgical History / Comment(s): Colostomy, TURP, R total knee arthroplasty, bilateral cataract removals/lens implants. Past Anesthesia/Blood Transfusion Reactions: No Reported Reaction Past Psychological History: No Psychological Hx Reported Additional Psychological History / Comment(s): Pt resides with his spouse. He has [facility]. He uses a walker to ambulate. His spouse manages his meds and assists with washing up. Spouse also is his city bus driver. Smoking Status: Former smoker Past Alcohol Use History: None Reported Additional Past Alcohol Use History / Comment(s): Pt started smoking in 1954 and quit in 1976. Pt no longer drinks but has hx of alcoholism. Past Drug Use History: None Reported - Past Family History Father Additional Family Medical History / Comment(s): Father lived to be 91 yrs old. He had a pacer. Mother Family Medical History: Diabetes Mellitus Additional Family Medical History / Comment(s): kidney cancer Medications and Allergies Home Medications Medication Instructions Recorded Confirmed Type Acetaminophen [Tylenol 8 Hour] 1,300 mg PO BID 07/24/21 09/04/21 History Albuterol Sulfate [Proair Hfa] 2 puff INHALATION RT-Q4H PRN 07/24/21 09/04/21 History Allopurinol [Zyloprim] 100 mg PO BID 07/24/21 09/04/21 History Aspirin EC [Ecotrin Low Dose] 81 mg PO DAILY 07/24/21 09/04/21 History Atorvastatin [Lipitor] 40 mg PO DAILY 07/24/21 09/04/21 History Cyanocobalamin [Vitamin B-12] 500 mcg PO DAILY 07/24/21 09/04/21 History Dorzolamide 2% [Trusopt 2%] 1 drop BOTH EYES BID 07/24/21 09/04/21 History Latanoprost/Pf [Latanoprost 0.005% 1 drop BOTH EYES HS 07/24/21 09/04/21 History Eye Drop] Magnesium Oxide 400 mg PO HS 07/24/21 09/04/21 History Metoprolol Succinate (ER) [Toprol 100 mg PO DAILY 07/24/21 09/04/21 History XL] Midodrine HCl [ProAmatine] 10 mg PO TID 07/24/21 09/04/21 History Multivitamins, Thera [Multivitamin 1 tab PO DAILY 07/24/21 09/04/21 History (formulary)] [place]-3 Fatty Acids/Fish Oil [Fish 1 cap PO DAILY 07/24/21 09/04/21 History Oil 1,000 mg Softgel] Pantoprazole [Protonix] 40 mg PO BID 07/24/21 09/04/21 History Umeclidinium Brm/Vilanterol Tr 1 puff INHALATION RT-DAILY 07/24/21 09/04/21 History [Anoro Ellipta 62.5-25 Mcg INH] Furosemide [Lasix] 40 mg PO DAILY #0 09/08/21 09/04/21 Rx Potassium Chloride ER [K-Dur 10] 10 meq PO DAILY #30 tab 09/08/21 Rx Sodium Bicarbonate Tab 650 mg PO DAILY #20 tab 09/08/21 Rx Tamsulosin [Flomax] 0.4 mg PO PC-BRKFST #30 tab 09/08/21 Rx Acetaminophen with Codeine 5 - 10 ml PO Q4H PRN 09/17/21 09/17/21 History [Tylenol w/Codeine 120-12 mg/5 ml] Clindamycin HCl 300 mg PO Q6H 09/17/21 09/17/21 History Allergies Allergy/AdvReac Type Severity Reaction Status Date / Time Penicillins Allergy Rash/Hives Verified 09/17/21 12:40 shellfish derived [Shellfish] Allergy Nausea & Verified 09/17/21 12:40 Vomiting Physical Exam Vitals: Vital Signs Temp Pulse Resp BP Pulse Ox 09/17/21 09:00 51 L 14 97/63 95 09/17/21 08:45 50 L 18 102/68 96 09/17/21 08:30 98.4 F 52 L 19 101/64 96 09/17/21 08:15 51 L 9 L 96/70 97 09/17/21 08:00 52 L 7 L 84/61 09/17/21 07:57 52 L 11 L 09/17/21 07:29 49 L 18 114/61 97 09/17/21 06:33 50 L 18 111/67 97 09/17/21 06:17 50 L 18 104/76 98 09/17/21 05:48 43 L 18 113/97 94 L 09/17/21 04:14 42 L 16 65/51 95 09/17/21 02:55 44 L 18 111/89 96 09/17/21 02:36 36 L 09/17/21 02:28 38 L 09/17/21 01:48 98.2 F 52 L 18 96 Intake and Output 09/16/21 09/17/21 09/17/21 22:59 06:59 14:59 Intake Total 130 Output Total 50 Balance 80 Intake: Intake, IV Titration 130 Amount Sodium Chloride 0.9% 1, 130 000 ml @ 130 mls/hr IV . Q7H42M [facility] Rx#:[id number] Output: Urine 50 Other: Weight 93.44 kg 93.44 kg Results CBC & Chem 7: 09/17/21 01:31 09/17/21 06:00 Labs: Abnormal Lab Results - Last 24 Hours (Table) 09/17/21 09/17/21 09/17/21 Range/Units 01:31 01:31 02:24 WBC 11.7 H (3.8-10.6) k/uL RBC 3.85 L (4.30-5.90) m/uL MCV 109.2 H (80.0-100.0) fL Neutrophils # 8.9 H (1.3-7.7) k/uL Macrocytosis Marked A Sodium 132 L (137-145) mmol/L Potassium 6.6 H* (3.5-5.1) mmol/L Chloride 97 L (98-107) mmol/L Carbon Dioxide 19 L (22-30) mmol/L BUN 36 H (9-20) mg/dL Creatinine 3.01 H (0.66-1.25) mg/dL Glucose 131 H (74-99) mg/dL POC Glucose (mg/dL) (75-99) mg/dL Calcium (8.4-10.2) mg/dL Phosphorus 5.2 H (2.5-4.5) mg/dL Magnesium 1.3 L (1.6-2.3) mg/dL Total Bilirubin 1.5 H (0.2-1.3) mg/dL Troponin I (0.000-0.034) ng/mL 09/17/21 09/17/21 09/17/21 Range/Units 02:24 06:00 08:00 WBC (3.8-10.6) k/uL RBC (4.30-5.90) m/uL MCV (80.0-100.0) fL Neutrophils # (1.3-7.7) k/uL Macrocytosis Sodium 135 L (137-145) mmol/L Potassium 5.3 H (3.5-5.1) mmol/L Chloride (98-107) mmol/L Carbon Dioxide 20 L (22-30) mmol/L BUN 34 H (9-20) mg/dL Creatinine 2.92 H (0.66-1.25) mg/dL Glucose 153 H (74-99) mg/dL POC Glucose (mg/dL) 180 H (75-99) mg/dL Calcium 8.0 L (8.4-10.2) mg/dL Phosphorus (2.5-4.5) mg/dL Magnesium (1.6-2.3) mg/dL Total Bilirubin (0.2-1.3) mg/dL Troponin I 0.109 H* (0.000-0.034) ng/mL Laboratory Results WBC 11.7 k/uL (3.8-10.6) H 09/17/21 01:31 RBC 3.85 m/uL (4.30-5.90) L 09/17/21 01:31 Hgb 13.5 gm/dL (13.0-17.5) 09/17/21 01:31 Hct 42.1 % (39.0-53.0) 09/17/21 01:31 MCV 109.2 fL (80.0-100.0) H 09/17/21 01:31 MCH 35.0 pg (25.0-35.0) 09/17/21 01:31 MCHC 32.0 g/dL (31.0-37.0) 09/17/21 01:31 RDW 15.5 % (11.5-15.5) 09/17/21 01:31 Plt Count 233 k/uL (150-450) 09/17/21 01:31 MPV 8.5 09/17/21 01:31 Neutrophils % 76 % 09/17/21 01:31 Lymphocytes % 16 % 09/17/21 01:31 Monocytes % 5 % 09/17/21 01:31 Eosinophils % 1 % 09/17/21 01:31 Basophils % 1 % 09/17/21 01:31 Neutrophils # 8.9 k/uL (1.3-7.7) H 09/17/21 01:31 Lymphocytes # 1.9 k/uL (1.0-4.8) 09/17/21 01:31 Monocytes # 0.5 k/uL (0-1.0) 09/17/21 01:31 Eosinophils # 0.1 k/uL (0-0.7) 09/17/21 01:31 Basophils # 0.1 k/uL (0-0.2) 09/17/21 01:31 Manual Slide Review Performed 09/17/21 01:31 Macrocytosis Marked A 09/17/21 01:31 PT 12.0 sec (9.0-12.0) 09/17/21 02:24 INR 1.1 (<1.2) 09/17/21 02:24 Sodium 135 mmol/L (137-145) L 09/17/21 06:00 Potassium 5.3 mmol/L (3.5-5.1) H 09/17/21 06:00 Chloride 104 mmol/L (98-107) 09/17/21 06:00 Carbon Dioxide 20 mmol/L (22-30) L 09/17/21 06:00 Anion Gap 11 mmol/L 09/17/21 06:00 BUN 34 mg/dL (9-20) H 09/17/21 06:00 Creatinine 2.92 mg/dL (0.66-1.25) H 09/17/21 06:00 Est GFR (CKD-EPI)AfAm 23 (>60 ml/min/1.73 sqM) 09/17/21 06:00 Est GFR (CKD-EPI)NonAf 20 (>60 ml/min/1.73 sqM) 09/17/21 06:00 Glucose 153 mg/dL (74-99) H 09/17/21 06:00 POC Glucose (mg/dL) 180 mg/dL (75-99) H 09/17/21 08:00 POC Glu [employer] Instruction[employer]er ID Paul Atwood 09/17/21 08:00 Calcium 8.0 mg/dL (8.4-10.2) L 09/17/21 06:00 Phosphorus 5.2 mg/dL (2.5-4.5) H 09/17/21 02:24 Magnesium 1.3 mg/dL (1.6-2.3) L 09/17/21 02:24 Total Bilirubin 1.5 mg/dL (0.2-1.3) H 09/17/21 01:31 AST 44 U/L (17-59) 09/17/21 01:31 ALT 30 U/L (4-49) 09/17/21 01:31 Alkaline Phosphatase 78 U/L (38-126) 09/17/21 01:31 Troponin I 0.112 ng/mL (0.000-0.034) H* 09/17/21 11:44 Total Protein 7.1 g/dL (6.3-8.2) 09/17/21 01:31 Albumin 3.9 g/dL (3.5-5.0) 09/17/21 01:31 TSH 2.520 mIU/L (0.465-4.680) 09/17/21 02:24 Cortisol 42 ug/dL 09/17/21 06:00 Thrombosis Risk Factor Assmnt - Choose All That Apply Any of the Below Risk Factors Present?: Yes Each Factor Represents 1 point: Abnormal pulmonary function (COPD), Medical pt on bed rest, Obesity (BMI >25), Swollen legs (current) Each Risk Factor Represents 2 Points: Central venous access, Patient confined to bed Each Risk Factor Represents 3 Points: Age 75 years or older Thrombosis Risk Factor Assessment Total Risk Factor Score: 11 Thrombosis Risk Factor Assessment Level: High Risk
[2021-09-17 13:07] LABS: ABG Base Excess -3.4 mmol/L; ABG HCO3 21 mmol/L (21-25); ABG Oxygen Saturation 92.3 % (94-97); ABG PCO2 37 mmHg (35-45); ABG PH 7.37 (7.35-7.45); ABG PO2 67 mmHg (83-108); Allen Test Performed? Yes
--- NOTE | 2021-09-17 13:08 | XR ---
EXAMINATION TYPE: XR chest 1V DATE OF EXAM: 09/17/2021 COMPARISON: 09/17/2021 HISTORY: Shortness of breath TECHNIQUE: Single frontal view of the chest is obtained. FINDINGS: Right jugular central venous catheter terminating in the SVC/R junction. There is mild interstitial densities in the lower lobes bilaterally unchanged compared to previous. The heart is prominent but the pulmonary vasculature does not appear congested. There is no large ple ural effusion and no pneumothorax. There is a chronic rotator cuff tear of the right shoulder. IMPRESSION: Moderate cardiomegaly without pulmonary vascular congestion. Interstitial opacities in t he lung bases which are unchanged compared to previous and could reflect atelectasis or chronic inter stitial change.
[2021-09-17] MEDS: ENOXAPARIN 30 MG/0.3 ML SYRINGE SQ SCH (13:24)
[2021-09-17] MEDS: MIDODRINE 5 MG TAB PO SCH ×2 (13:25→17:54)
[2021-09-17 13:52] LABS: Appearance,Urine Clear (Clear); Bacteria,Urine Rare /hpf; Bilirubin,Urine Negative (Negative); Blood,Urine Trace (Negative); Color,Urine Yellow; Glucose,Urine (UA) Negative (Negative); Granular Casts,Urine 1 /lpf (0); Hyaline Casts,Urine 31 /lpf (0-2); Ketones,Urine Negative (Negative); Leukocyte Esterase,Urine Small (Negative); Mucus,Urine Rare /hpf; Nitrite,Urine Negative (Negative); Protein,Urine Trace (Negative); RBC,Urine 5 /hpf (0-5); Specific Gravity,Urine 1.008 (1.001-1.035); Squamous Epithelial Cell,Urine <1 /hpf (0-4); Urobilinogen,Urine <2.0 mg/dL (<2.0); WBC,Urine 3 /hpf (0-5)
[2021-09-17] MEDS ORDERED: MIDODRINE 5 MG TAB PO SCH (16:00)
[2021-09-17 19:51] LABS: Glucose,Whole Blood 186 mg/dL (75-99)
[2021-09-17] MEDS: INSULIN ASPART (NovoLOG) 100 UNIT/ML VIAL SQ SCH (20:08)
[2021-09-17] MEDS: LATANOPROST 0.005% OPHTH DROPS 2.5 ML BTL BOTH EYES SCH (20:08)
[2021-09-18] MEDS: SODIUM CHLORIDE 0.9% 1,000 ML IV SCH ×3 (01:30→20:54)
[2021-09-18 06:49] LABS: Glucose,Whole Blood 135 mg/dL (75-99)
[2021-09-18] MEDS: INSULIN ASPART (NovoLOG) 100 UNIT/ML VIAL SQ SCH ×4 (07:00→20:54)
[2021-09-18] MEDS: MIDODRINE 5 MG TAB PO SCH ×3 (07:07→17:51)
--- NOTE | 2021-09-18 07:28 | P.PN ---
Subjective Progress Note Date: 09/18/21 PROGRESS NOTE The patient is a 81 year old female with known history of hypertension, hyperlipidemia, COPD and renal failure who presented with symptoms of hypotension, bradycardia, not feeling well. He was on a high dose beta kenneth. He is feeling better at this time, continues to be on low dose dopamine in sinus mechanism. He denies any chest discomfort, dizziness or palpitations. During his last hospital stay his echocardiogram showed an ejection fraction of 40-45%. He has no nausea or vomiting. He has mild edema. His urinary output is good. He denies any arrhythmia. As an outpatient he was on metoprolol succinate 100 mg twice a day. PHYSICAL EXAMINATION: Blood pressure 110/60 heart rate in the high 90s LUNGS: [Clear to auscultation] HEART: [Regular rate and rhythm, S1, S2. No S3. systolic ejection murmur 2/6] ABDOMEN: [Soft, nontender, no organomegaly] EXTREMETIES: [1+ edema] LAB: Yesterday potassium 5.3 on admission 6.6, creatinine 2.92 with a BUN 34. Troponin 0.109 and 0.122. His EKG shows sinus bradycardia with nonspecific T- wave inversion in the inferolateral leads cannot exclude ischemia, T-wave changes were noted in the past. IMPRESSION: 1. Bradycardia, related to beta kenneth, improved 2. Troponin elevation with no evidence of acute coronary syndrome most likely related to chronic kidney disease 3. Chronic kidney disease 4. Diabetes PLAN: 1. Stop IV dopamine 2. Restart low dose beta kenneth 3. Increase physical activity gradually 4. Follow blood pressure and depending on the trend further adjustment will be done. 5. Hold midodrine for now. Objective - Vital Signs Vital signs: Vital Signs Temp 98.3 F 09/18/21 00:00 Pulse 102 H 09/18/21 07:00 Resp 16 09/18/21 07:00 BP 110/63 09/18/21 07:00 Pulse Ox 95 09/18/21 07:00 Intake & Output 09/17/21 09/18/21 09/18/21 18:59 06:59 18:59 Intake Total 7014.021 3423 130 Output Total 1450 2010 120 Balance -112.916 -450 10 Weight 98.6 kg Intake: IV 1430 130 Sodium Chloride 0.9% 1, 1430 130 000 ml @ 130 mls/hr IV . Q7H42M [facility] Rx#:[id number] Intake, IV Titration 1337.084 130 Amount DOPamine DRIP 800 mg In 4.088 Dextrose/Water 1 250ml. bag @ 5 MCG/KG/MIN 8.76 mls/hr IV .Q24H [facility] Rx#: [id number] Norepinephrine 32 mg In 32.996 Sodium Chloride 0.9% 218 ml @ 0.05 MCG/KG/MIN 2.19 mls/hr IV .Q24H [facility] Rx#: [id number] Sodium Chloride 0.9% 1, 1300 130 000 ml @ 130 mls/hr IV . Q7H42M [facility] Rx#:[id number] Output: Urine 1350 1960 120 Stool 100 50 Other: Voiding Method Indwelling Catheter Indwelling Catheter # Bowel Movements 1 - Labs CBC & Chem 7: 09/17/21 01:31 09/17/21 06:00 Labs: Abnormal Lab Results - Last 24 Hours (Table) 09/17/21 09/17/21 09/17/21 Range/Units 08:00 11:44 12:55 ABG pO2 67 L (83-108) mmHg ABG O2 Saturation 92.3 L (94-97) % POC Glucose (mg/dL) 180 H (75-99) mg/dL Troponin I 0.112 H* (0.000-0.034) ng/mL Urine Protein (Negative) Urine Blood (Negative) Ur Leukocyte Esterase (Negative) Urine Bacteria (None) /hpf Hyaline Casts (0-2) /lpf Urine Mucus (None) /hpf 09/17/21 09/17/21 09/17/21 Range/Units 13:22 15:22 19:48 ABG pO2 (83-108) mmHg ABG O2 Saturation (94-97) % POC Glucose (mg/dL) 186 H (75-99) mg/dL Troponin I 0.113 H* (0.000-0.034) ng/mL Urine Protein Trace H (Negative) Urine Blood Trace H (Negative) Ur Leukocyte Esterase Small H (Negative) Urine Bacteria Rare H (None) /hpf Hyaline Casts 31 H (0-2) /lpf Urine Mucus Rare H (None) /hpf 09/18/21 Range/Units 06:47 ABG pO2 (83-108) mmHg ABG O2 Saturation (94-97) % POC Glucose (mg/dL) 135 H (75-99) mg/dL Troponin I (0.000-0.034) ng/mL Urine Protein (Negative) Urine Blood (Negative) Ur Leukocyte Esterase (Negative) Urine Bacteria (None) /hpf Hyaline Casts (0-2) /lpf Urine Mucus (None) /hpf
[2021-09-18] MEDS: FORMOTEROL FUMARATE 20 MCG/2 ML NEBU INHALATION SCH ×2 (07:29→20:15)
[2021-09-18] MEDS: IPRATROPIUM 0.5 MG/2.5 ML NEBU INHALATION SCH ×4 (07:29→20:16)
[2021-09-18 07:30] LABS: Basophils % (A) 0 %; Eosinophils # (A) 0.1 k/uL (0-0.7); Eosinophils % (A) 1 %; HCT 39.4 % (39.0-53.0); HGB 12.4 gm/dL (13.0-17.5); Lymphocytes # (A) 0.6 k/uL (1.0-4.8); Lymphocytes % (A) 7 %; MCH 34.1 pg (25.0-35.0); MCHC 31.5 g/dL (31.0-37.0); Macrocytosis Marked; Mean Platelet Volume 8.5; Monocytes # (A) 0.3 k/uL (0-1.0); Monocytes % (A) 4 %; Neutrophils # (A) 7.4 k/uL (1.3-7.7); Neutrophils % (A) 88 %; Platelet Count 171 k/uL (150-450); RBC 3.65 m/uL (4.30-5.90); RDW 14.7 % (11.5-15.5); WBC 8.4 k/uL (3.8-10.6)
[2021-09-18] MEDS: PANTOPRAZOLE 40 MG/10 ML VIAL IV SCH (07:45)
[2021-09-18] MEDS: ENOXAPARIN 30 MG/0.3 ML SYRINGE SQ SCH (07:45)
[2021-09-18] MEDS: CYANOCOBALAMIN 500 MCG TAB PO SCH (07:45)
[2021-09-18] MEDS: METOPROLOL TARTRATE 25 MG TAB PO SCH ×2 (07:46→20:53)
[2021-09-18] MEDS: ATORVASTATIN 40 MG TAB PO SCH (07:46)
--- NOTE | 2021-09-18 08:16 | XR ---
EXAMINATION TYPE: XR chest 1V portable DATE OF EXAM: 09/18/2021 COMPARISON: 09/17/2021 HISTORY: Shortness of breath TECHNIQUE: Single frontal view of the chest is obtained. FINDINGS: Right-sided central line noted with hypertrophic and degenerative changes in the spine. He art size stable with bilateral lower lobe infiltrate and small effusion. No pneumothorax. Arthropathy of the shoulders. Underlying COPD noted. IMPRESSION: Bilateral lower lobe infiltrate and pleural effusion correlate for COPD. Differential di agnosis would include pneumonia versus CHF similar to the prior exam.
[2021-09-18 08:22] LABS: Albumin 3.3 g/dL (3.5-5.0); Calcium 8.7 mg/dL (8.4-10.2); Magnesium 1.6 mg/dL (1.6-2.3); Phosphorus 3.7 mg/dL (2.5-4.5); Potassium 5.2 mmol/L (3.5-5.1); Total Bilirubin 0.9 mg/dL (0.2-1.3); Total Protein 6.5 g/dL (6.3-8.2)
[2021-09-18] MEDS: SIMETHICONE 80 MG CHEWABLE PO PRN ×2 (08:27→21:44)
[2021-09-18] MEDS ORDERED: Magnesium Replacement Protocol 1 EACH MISC MISCELLANE PRN (08:39)
[2021-09-18] MEDS ORDERED: FUROSEMIDE 10 MG/ML 4 ML VIAL IV STA (08:59)
--- NOTE | 2021-09-18 09:33 | P.PN ---
Subjective Progress Note Date: 09/18/21 Principal diagnosis: Acute kidney injury, bradycardia, hyperkalemia. This is a 81-year-old white male with history of multiple medical problems including COPD, tongue cancer requiring resection over 2 months ago. hypertension, dyslipidemia, patient was recently in the hospital a few weeks ago for acute renal failure with obstructive uropathy and the patient was discharged after placement of a Rogers catheter and he was seen at the time by urology and by nephrology on consultation. Since discharge on 09/08, patient has been seen by urology on outpatient basis, and advised to keep the Rogers catheter in place. Patient presented to the ER yesterday with multiple symptoms including weakness, some shortness of breath, no cough, no wheezing, no chest pain, patient was feeling weak, and he was not noticing any urine in his Rogers catheter. Apparently before arrival to the ER, patient had a syncopal episode lasted seconds. Upon arrival to the ER, patient was noted to have hypotension requiring fluid boluses, patient received 2-1/2 L of fluid boluses, he had a central line placed by the ER physician,and he was started on norepinephrine. Patient was also noted to have sinus bradycardia upon evaluation in the ER. Patient received a treatment for his hyperkalemia, initial potassium was 6.6, however follow-up potassium was 5.3. Creatinine was 3.01 and it came down to 2.92 after fluid boluses. Troponin was elevated at 0.109. Cortisol level was normal thyroid profile was normal. Considering the patient's hypotension and considering his hyperkalemia and the fact the patient is requiring norepinephrine, I was asked to see the patient on consultation, and I accepted the patient for ICU admission. last echocardiogram showed LV dysfunction with ejection fraction of 40-45%. Chest x-ray showed no significant abnormalities. Minimal bibasilar atelectasis is noted Progress note dated 09/18/2021. 81-year-old male who was admitted on September 17. He initially came in with acute kidney injury, bradycardia, and elevated potassium. Patient is currently on 10 L high flow oxygen. He was on dopamine for blood pressure support, and his low heart rate. That has been weaned off. He is getting saline at 75 mL an hour. He has no major complaints at this time. White count 8.4, hemoglobin 12.4, hematocrit 39.4, platelet count 171,000. Sodium 139, potassium 5.2, chlorides 106, CO2 23, anion gap 10, BUN 33, creatinine 1.94. Troponin was 0.113. Albumin 3.3. Chest x-ray my opinion is consistent with fluid overload, and bilateral pleural effusions, and cardiomegaly. Objective - Vital Signs Vital signs: Vital Signs Temp 98.3 F 09/18/21 00:00 Pulse 86 09/18/21 07:53 Resp 16 09/18/21 07:00 BP 110/63 09/18/21 07:00 Pulse Ox 95 09/18/21 07:00 Intake & Output 09/17/21 09/18/21 09/18/21 18:59 06:59 18:59 Intake Total 7397.002 0558 130 Output Total 1450 2010 120 Balance -112.916 -450 10 Weight 98.6 kg Intake: IV 1430 130 Sodium Chloride 0.9% 1, 1430 130 000 ml @ 130 mls/hr IV . Q7H42M [facility] Rx#:[id number] Intake, IV Titration 1337.084 130 Amount DOPamine DRIP 800 mg In 4.088 Dextrose/Water 1 250ml. bag @ 5 MCG/KG/MIN 8.76 mls/hr IV .Q24H [facility] Rx#: [id number] Norepinephrine 32 mg In 32.996 Sodium Chloride 0.9% 218 ml @ 0.05 MCG/KG/MIN 2.19 mls/hr IV .Q24H ONE Rx#: [id number] Sodium Chloride 0.9% 1, 1300 130 000 ml @ 130 mls/hr IV . Q7H42M [facility] Rx#:[id number] Output: Urine 1350 1960 120 Stool 100 50 Other: Voiding Method Indwelling Catheter Indwelling Catheter # Bowel Movements 1 - Exam No acute distress, oriented 3. No respiratory distress. Currently on 10 L high flow oxygen. HEENT examination is grossly unremarkable. Neck supple. Full range of motion. No adenopathy thyromegaly or neck vein distention. Cardiovascular examination reveals regular rhythm rate. S1-S2 normal. No S3 or S4. No discernible murmur noted. Heart sounds are distant. Heart rate 86 bpm. Lungs reveal scattered bilateral rhonchi and bibasilar crackles. Breath sounds equal bilaterally. Saturations are 95%. No wheezes are noted. Abdomen soft bowel sounds are heard. No masses or tenderness. Extremities are intact. No cyanosis clubbing or edema. Skin is without rash or lesion. Neurologic examination is brief but nonfocal. - Labs CBC & Chem 7: 09/18/21 07:00 09/18/21 07:00 Labs: Abnormal Lab Results - Last 24 Hours (Table) 09/17/21 09/17/21 09/17/21 Range/Units 11:44 12:55 13:22 RBC (4.30-5.90) m/uL Hgb (13.0-17.5) gm/dL MCV (80.0-100.0) fL Lymphocytes # (1.0-4.8) k/uL Macrocytosis ABG pO2 67 L (83-108) mmHg ABG O2 Saturation 92.3 L (94-97) % Potassium (3.5-5.1) mmol/L BUN (9-20) mg/dL Creatinine (0.66-1.25) mg/dL Glucose (74-99) mg/dL POC Glucose (mg/dL) (75-99) mg/dL AST (17-59) U/L ALT (4-49) U/L Troponin I 0.112 H* (0.000-0.034) ng/mL Albumin (3.5-5.0) g/dL Urine Protein Trace H (Negative) Urine Blood Trace H (Negative) Ur Leukocyte Esterase Small H (Negative) Urine Bacteria Rare H (None) /hpf Hyaline Casts 31 H (0-2) /lpf Urine Mucus Rare H (None) /hpf 09/17/21 09/17/21 09/18/21 Range/Units 15:22 19:48 06:47 RBC (4.30-5.90) m/uL Hgb (13.0-17.5) gm/dL MCV (80.0-100.0) fL Lymphocytes # (1.0-4.8) k/uL Macrocytosis ABG pO2 (83-108) mmHg ABG O2 Saturation (94-97) % Potassium (3.5-5.1) mmol/L BUN (9-20) mg/dL Creatinine (0.66-1.25) mg/dL Glucose (74-99) mg/dL POC Glucose (mg/dL) 186 H 135 H (75-99) mg/dL AST (17-59) U/L ALT (4-49) U/L Troponin I 0.113 H* (0.000-0.034) ng/mL Albumin (3.5-5.0) g/dL Urine Protein (Negative) Urine Blood (Negative) Ur Leukocyte Esterase (Negative) Urine Bacteria (None) /hpf Hyaline Casts (0-2) /lpf Urine Mucus (None) /hpf 09/18/21 09/18/21 Range/Units 07:00 07:00 RBC 3.65 L (4.30-5.90) m/uL Hgb 12.4 L (13.0-17.5) gm/dL MCV 108.0 H (80.0-100.0) fL Lymphocytes # 0.6 L (1.0-4.8) k/uL Macrocytosis Marked A ABG pO2 (83-108) mmHg ABG O2 Saturation (94-97) % Potassium 5.2 H (3.5-5.1) mmol/L BUN 33 H (9-20) mg/dL Creatinine 1.94 H (0.66-1.25) mg/dL Glucose 143 H (74-99) mg/dL POC Glucose (mg/dL) (75-99) mg/dL AST 78 H (17-59) U/L ALT 81 H (4-49) U/L Troponin I (0.000-0.034) ng/mL Albumin 3.3 L (3.5-5.0) g/dL Urine Protein (Negative) Urine Blood (Negative) Ur Leukocyte Esterase (Negative) Urine Bacteria (None) /hpf Hyaline Casts (0-2) /lpf Urine Mucus (None) /hpf Assessment and Plan Assessment: Hypotension, secondary to hypovolemia, and bradycardia, resolved. Acute on chronic renal failure/acute kidney injury. Chronic hypoxemic respiratory failure secondary to COPD. Hyperkalemia, secondary to acute kidney injury, resolved. Possible acute non-ST segment elevation myocardial infarction. Type 2 diabetes mellitus. Tongue cancer, status post resection. History of colostomy. BPH. Chronic diabetic neuropathy. Plan: Plan dated 09/18/2021. Currently, the patient's doing much better. We will reduce his IV fluids to KVO. Dopamine has been weaned off. Blood pressure and heart rate are much more stable. Today's potassium was 5.2. The patient gets Lasix 40 mg IV push. Additional recommendations and suggestions are forthcoming. Prognosis is guarded. I'm sure later today, the patient can be transferred out of the intensive care unit. Labs, x-rays, medications are reviewed. We will continue to follow the patient make recommendations where appropriate. Time with Patient: Less than 30
[2021-09-18] MEDS: MAGNESIUM SULFATE-D5W PMX 1 GM in DEXTROSE/WATER 1 100ML.BAG IVPB SCH ×2 (10:09→12:57)
--- NOTE | 2021-09-18 10:12 | P.NPCON ---
History of Present Illness - Reason for Consult acute renal failure - History of Present Illness Reason for consultation: Acute kidney injury History of present illness: A stent patient is a 81-year-old male seen in renal consultation for acute kidney injury. Patient's creatinine in July 2021 was near 1.5. Patient was admitted in August 2021 and his creatinine was 8.14. He was noted to have urinary retention and renal function improved with Rogers catheter placement and IV fluids. Creatinine was down to 1.9 and discharged on 09/08/2021. Patient states he did not urinate for a day and also felt weak and lightheaded. He was noted to be bradycardic on admission and was started on dopamine. He was also on Levophed. Patient received normal saline boluses as well. Urine output has improved. Vasopressors have been discontinued. Creatinine was 3.01 on admission and is down to 1.94 today. Patient states he had 10 teeth pulled last week due to preparation for radiation therapy for the tongue cancer. He denies chest pain or shortness of breath. He does have edema in the lower external disease. No vomiting or diarrhea. No fever or chills. Hyperkalemia improved with medical management. Potassium level 5.2 today. Acidosis improved as well. Heart rate was in the 40s and is now in the 80s. Vital signs are stable. General: Awake and alert. No acute distress. HEENT: Head exam is unremarkable. On nasal cannula. LUNGS: Breath sounds decreased. HEART: Rate and Rhythm are regular. ABDOMEN: Soft, no distention. EXTREMITITES: 1+ edema. 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 History of Any Multi-Drug Resistant Organisms: None Reported Past Surgical History: Bowel Resection, Joint Replacement, Prostate Surgery Additional Past Surgical History / Comment(s): Colostomy, TURP, R total knee arthroplasty, bilateral cataract removals/lens implants. Past Anesthesia/Blood Transfusion Reactions: No Reported Reaction Past Psychological History: No Psychological Hx Reported Additional Psychological History / Comment(s): Pt resides with his spouse. He has [facility] home care. He uses a walker to ambulate. His spouse manages his meds and assists with washing up. Spouse also is his regional company flatbed truck driver. Smoking Status: Former smoker Past Alcohol Use History: None Reported Additional Past Alcohol Use History / Comment(s): Pt started smoking in 6 and quit in 1976. Pt no longer drinks but has hx of alcoholism. Past Drug Use History: None Reported - Past Family History Father Additional Family Medical History / Comment(s): Father lived to be 91 yrs old. He had a pacer. Mother Family Medical History: Diabetes Mellitus Additional Family Medical History / Comment(s): kidney cancer Medications and Allergies Home Medications Medication Instructions Recorded Confirmed Type Acetaminophen [Tylenol 8 Hour] 1,300 mg PO BID PRN 07/24/21 09/17/21 History Albuterol Sulfate [Proair Hfa] 2 puff INHALATION RT-Q4H PRN 07/24/21 09/17/21 History Allopurinol [Zyloprim] 100 mg PO BID 07/24/21 09/17/21 History Aspirin EC [Ecotrin Low Dose] 81 mg PO DAILY 07/24/21 09/17/21 History Atorvastatin [Lipitor] 40 mg PO DAILY 07/24/21 09/17/21 History Cyanocobalamin [Vitamin B-12] 500 mcg PO DAILY 07/24/21 09/17/21 History Dorzolamide 2% [Trusopt 2%] 1 drop BOTH EYES BID 07/24/21 09/17/21 History Latanoprost/Pf [Latanoprost 0.005% 1 drop BOTH EYES HS 07/24/21 09/17/21 History Eye Drop] Magnesium Oxide 400 mg PO HS 07/24/21 09/17/21 History Metoprolol Succinate (ER) [Toprol 100 mg PO DAILY 07/24/21 09/17/21 History XL] Midodrine HCl [ProAmatine] 10 mg PO TID 07/24/21 09/17/21 History Multivitamins, Thera [Multivitamin 1 tab PO DAILY 07/24/21 09/17/21 History (formulary)] [place]-3 Fatty Acids/Fish Oil [Fish 1 cap PO DAILY 07/24/21 09/17/21 History Oil 1,000 mg Softgel] Pantoprazole [Protonix] 40 mg PO BID 07/24/21 09/17/21 History Umeclidinium Brm/Vilanterol Tr 1 puff INHALATION RT-DAILY 07/24/21 09/17/21 History [Anoro Ellipta 62.5-25 Mcg INH] Furosemide [Lasix] 40 mg PO DAILY #0 09/08/21 09/17/21 Rx Potassium Chloride ER [K-Dur 10] 10 meq PO DAILY #30 tab 09/08/21 09/17/21 Rx Sodium Bicarbonate Tab 650 mg PO DAILY #20 tab 09/08/21 09/17/21 Rx Tamsulosin [Flomax] 0.4 mg PO PC-BRKFST #30 tab 09/08/21 09/17/21 Rx Acetaminophen with Codeine 5 - 10 ml PO Q4H PRN 09/17/21 09/17/21 History [Tylenol w/Codeine 120-12 mg/5 ml] Clindamycin HCl 300 mg PO Q6H 09/17/21 09/17/21 History Allergies Allergy/AdvReac Type Severity Reaction Status Date / Time Penicillins Allergy Rash/Hives Verified 09/17/21 12:40 shellfish derived [Shellfish] Allergy Nausea & Verified 09/17/21 12:40 Vomiting Physical Exam Vitals: Vital Signs Temp Pulse Resp BP Pulse Ox 09/18/21 10:00 84 12 82/53 94 L 09/18/21 09:30 87 7 L 95/54 96 09/18/21 09:00 85 10 L 97/51 09/18/21 08:30 83 17 92/54 94 L 09/18/21 08:00 98.5 F 90 20 87/56 97 09/18/21 07:53 86 09/18/21 07:41 92 09/18/21 07:40 92 09/18/21 07:30 89 10 L 93/59 95 09/18/21 07:00 102 H 16 110/63 95 09/18/21 06:30 94 16 116/63 93 L 09/18/21 06:00 96 19 123/71 94 L 09/18/21 05:30 89 19 113/67 94 L 09/18/21 05:00 98 12 123/62 94 L 09/18/21 04:30 88 12 115/67 94 L 09/18/21 04:00 85 15 116/71 95 09/18/21 03:30 88 14 124/67 96 09/18/21 03:00 87 17 114/66 95 09/18/21 02:30 84 12 115/73 95 09/18/21 02:00 88 12 110/64 94 L 09/18/21 01:30 86 14 111/61 94 L 09/18/21 01:00 86 17 112/67 96 09/18/21 00:30 86 12 112/64 97 09/18/21 00:15 78 14 115/65 97 09/18/21 00:00 98.3 F 86 12 114/61 97 09/17/21 23:45 84 16 114/62 95 09/17/21 23:30 86 16 115/62 96 09/17/21 23:15 85 19 114/60 95 09/17/21 23:00 86 14 111/65 97 09/17/21 22:45 84 14 116/64 95 09/17/21 22:30 85 19 97/61 94 L 09/17/21 22:15 94 14 115/65 95 09/17/21 22:00 85 18 114/65 95 09/17/21 21:45 90 18 110/64 95 09/17/21 21:30 87 18 116/64 94 L 09/17/21 21:15 90 17 117/58 94 L 09/17/21 21:00 86 13 120/66 93 L 09/17/21 20:45 90 14 118/67 95 09/17/21 20:35 90 09/17/21 20:30 87 20 120/80 95 09/17/21 20:22 84 94 L 09/17/21 20:15 87 16 123/68 95 09/17/21 20:00 98.7 F 90 16 117/65 94 L 09/17/21 19:00 89 26 H 115/68 92 L 09/17/21 18:45 85 15 96/66 92 L 09/17/21 18:30 84 19 116/67 94 L 09/17/21 18:15 84 6 L 119/83 94 L 09/17/21 18:00 85 6 L 124/69 95 09/17/21 17:45 84 7 L 123/66 94 L 09/17/21 17:30 89 10 L 123/65 95 09/17/21 17:15 86 24 119/66 95 09/17/21 17:00 87 15 121/69 95 09/17/21 16:45 87 9 L 121/71 93 L 09/17/21 16:30 80 15 120/62 94 L 09/17/21 16:15 83 6 L 121/69 92 L 09/17/21 16:00 98.2 F 81 10 L 125/70 91 L 09/17/21 15:45 82 20 117/68 90 L 09/17/21 15:30 87 17 114/65 92 L 09/17/21 15:15 84 18 124/70 94 L 09/17/21 15:00 78 21 122/72 93 L 09/17/21 14:45 78 18 125/75 93 L 09/17/21 14:30 78 15 126/68 95 09/17/21 14:15 74 15 120/62 93 L 09/17/21 14:00 77 19 115/60 90 L 09/17/21 13:45 77 20 112/60 92 L 09/17/21 13:30 80 19 119/61 90 L 09/17/21 13:15 77 19 115/54 92 L 09/17/21 13:00 81 21 103/62 92 L 09/17/21 12:45 79 3 L 109/53 93 L 09/17/21 12:30 86 26 H 145/75 93 L 09/17/21 12:15 79 7 L 103/55 85 L 09/17/21 12:00 67 22 105/68 79 L 09/17/21 11:45 47 L 17 107/62 94 L 09/17/21 11:30 47 L 12 111/60 94 L 09/17/21 11:15 48 L 12 116/67 91 L 09/17/21 11:00 44 L 10 L 123/67 92 L 09/17/21 10:45 43 L 20 115/71 95 09/17/21 10:30 44 L 19 121/68 95 09/17/21 10:15 45 L 23 135/76 94 L Intake and Output 05/08/22 05/09/22 05/09/22 22:59 06:59 14:59 Intake Total 910 1040 245 Output Total 1635 1250 345 Balance -725 -210 -100 Intake: IV 390 1040 245 Sodium Chloride 0.9% 1, 390 1040 245 000 ml @ 130 mls/hr IV . Q7H42M [facility] Rx#:[id number] Intake, IV Titration 520 Amount Sodium Chloride 0.9% 1, 520 000 ml @ 130 mls/hr IV . Q7H42M [facility] Rx#:[id number] Output: Urine 1635 1200 295 Stool 50 50 Other: Voiding Method Indwelling Catheter Indwelling Catheter Indwelling Catheter # Bowel Movements 1 Weight 98.6 kg Results - Lab Results Most recent lab results ABG pH 7.37 (7.35-7.45) 09/17/21 12:55 ABG pCO2 37 mmHg (35-45) 09/17/21 12:55 ABG pO2 67 mmHg (83-108) L 09/17/21 12:55 ABG HCO3 21 mmol/L (21-25) 09/17/21 12:55 ABG O2 Saturation 92.3 % (94-97) L 09/17/21 12:55 Calcium 8.7 mg/dL (8.4-10.2) 09/18/21 07:00 Phosphorus 3.7 mg/dL (2.5-4.5) 09/18/21 07:00 Magnesium 1.6 mg/dL (1.6-2.3) 09/18/21 07:00 09/18/21 07:00 09/18/21 07:00 Assessment and Plan Plan: Assessment: 1. Acute kidney injury secondary to ATN secondary to bradycardia/hypotension. Creatinine was 3.01 on admission and is 1.94 today. Creatinine in July 2021 was as low as 1.5. Renal ultrasound from August 2021 showed no hydronephrosis 2. Urinary retention. Currently has a Rogers catheter. 3. Volume overload. 4. Acute on chronic systolic CHF ejection fraction of 40-45% with severe pulmonary hypertension. 5. Tongue cancer. 6. Hyperkalemia secondary to acute kidney injury and acidosis. Improved. Plan: Fluids discontinued this morning. Lasix 40 mg IV once today. Add Flomax. Avoid nephrotoxins. Continue to monitor renal function and urine output. Advised to follow up outpatient 1 week post discharge to establish care. Thank you for the consultation. I will continue to follow patient with you during his hospital stay.
[2021-09-18 11:35] LABS: Glucose,Whole Blood 188 mg/dL (75-99)
[2021-09-18] MEDS: TAMSULOSIN 0.4 MG CAP.ER.24H PO SCH (12:56)
[2021-09-18 13:31] VITALS: BMI 35.1
--- NOTE | 2021-09-18 13:43 | P.PN ---
Subjective Progress Note Date: 09/18/21 HISTORY OF PRESENT ILLNESS Is a pleasant 81-year-old gentleman, weighing known to my practice, no history of COPD, tongue cancer, hypertension, hyperlipidemia, BPH with lower urinary tract pathology, gout, chronic pleural effusion, glaucoma and arthritis, history of bowel obstruction requiring resection, and colostomy. He had partial resection of the tongue approximately 08/23/2021 IN to the emergency room Secondary to passing out after walking short distances, in the hallway towards the kitchen. Patient did not have any seizure episode at that time, no chest pain, and no palpitations. Patient not been eating well, secondary to dental extraction few weeks ago. He comes in secondary to the blackout episode, probably suffice time, along with being lightheaded, prior to the fall. Patient does not have any new edema, no diuretics were changed during his last visit wi th me, patient is on midodrine 10 mg 3 times a day, for history of orthostatic hypotension. Patient is on Lasix prior to admission, he per her home dose which is not verified, 40 mg daily In the emergency room, patient is hypotensive, entry blood pressure 65 systolic patient required a central line, and placed on pressors. Anything, transferred to ICU, entry potassium 6.6, creatinine 1 and 33.01, BUN of 36, WBC count 11.7, hemoglobin 13.5 patient transferred to ICU, status post 3 L of fluid r esuscitation in the emergency room, consulted with cardiology Dr. Moody, Dr. Herman pulmonary, and Dr. Perrin nephrology 09/18: Patient is seen today in the intensive care unit. Dopamine drip was discontinued this morning. Rogers catheter was requires patient had urinary retention. Heart rate has recovered and patient started on Lopressor per cardiology. Patient is also followed by pulmonary medicine. Patient has been afebrile, heart rate in the 80s, blood pressure 82/53, pulse ox 94% ON 8L high flow nasal cannula. Patient received 1 dose of IV Lasix 40 mg. Nephrology has added Flomax. Patient states that he has had significant amount of gas from his ostomy. Repeat blood work reveals WBC 8.4, hemoglobin 12.4, platelet count 171. Sodium 139, potassium 5.2, chloride 106, CO2 23, BUN 33 and creatinine 1.94. Capillary blood glucose running between 135 and 188. Magnesium 1.6. Total bilirubin 0.9, AST 78, ALT 81 and alkaline phosphatase 64. Chest x-ray reveals bilateral lower lobe infiltrate and pleural effusion correlate for COPD. Differential diagnosis would include pneumonia versus CHF. Review of systems: Constitutional: No fever, no chills, no night sweats. No weight change. Reports generalized weakness, reports fatigue. No daytime sleepiness. EENT: No headache. No blurred vision or double vision, no loss of vision. No loss of Hearing, no ringing in the ears, no dizziness. No nasal drainage or congestion. No epistaxis. No sore throat. Lungs: No shortness of breath, cough, no sputum production. No wheezing. Cardiovascular: No chest pain, no lower extremity edema. No palpitations. No paroxysmal nocturnal dyspnea. No orthopnea. No lightheadedness or dizziness. No syncopal episodes. Abdominal: No abdominal pain. No nausea, vomiting. No diarrhea. No constipation. No bloody or tarry stools.. No loss of appetite. Genitourinary: No dysuria, no increased frequency, urgency. No urinary retention. Rogers catheter in place. Musculoskeletal: No myalgias. No muscle weakness, no gait dysfunction, no frequent falls. No back pain. No neck pain. Integumentary: No wounds, no lesions. No rash or pruritus. No unusual bruising. No change in hair or nails. Neurologic: No aphasia. No facial droop. No change in mentation. No head injury. No headache. No paralysis. No paresthesia. Psychiatric: No depression. No anxiety. No mood swings. Endocrine: NoTED abnormal blood sugars. No weight change. No excessive sweating or thirst. No cold intolerance. Physical exam: General: This is 81-year-old male. He is resting on the ICU bed and appears to be in no acute distress. Derm: Skin warm and dry, normal coloration for ethnicity. Head: Atraumatic, normocephalic and symmetric. Eyes: EOMs intact, no lid lag, and anicteric sclera Mouth: no lip lesions, dry mucous membrane, has partial resection of one fourth of the tongue towards the left side, with good granulation tissue, no discharge, no open wound in the tongue, Cardiovascular: regular rate and rhythm with normal S1S2, systolic murmur, positive posterior tibial pulses bilaterally, and cap refill < 2 seconds. Lungs: Respirations even, regular, and unlabored on room air. Lungs CTA bilaterally, no rhonchi, no rales, no wheezing, and no accessory muscle usage. Abdominal: Obese abdomen soft, nontender to palpation, no guarding, no appreciable organomegaly. Ostomy right lower quadrant Ext: ROM intact. No gross muscle atrophy, no edema, no contractures Neuro: Speech clear, face symmetrical and CN II-XII grossly intact with no noted focal neuro deficits Psych: Alert and oriented to person, place, time, and situation. Appropriate and pleasant affect. Assessment and Plan 1. Hypotension secondary to bradycardia and hypokalemia. Consult with devulcanizer tender and cardiology appreciated. Dopamine drip was then discontinued and Lopressor 25 mg twice daily resumed. Continue cardiac monitoring. 2. Bradycardia secondary to beta kenneth, stabilized and patient resumed on metoprolol. 3. Acute renal failure secondary to ATN and bradycardia and hypotension with history of CKD stage IIIB. A nephrology consult appreciated, avoid nephrotoxic agents and monitor renal function and urine output. 4. Chronic urinary retention. Rogers catheter, Flomax. 5. Acute on chronic systolic heart failure with EF of 40-45%. 6. Hyperkalemia secondary to acute kidney injury and metabolic acidosis, s table. 7. Elevated troponin and acute coronary syndrome has been ruled out by cardiology. 8. Chronic hypoxic respiratory failure secondary to COPD. Continue Atrovent nebulizer treatments 4 times daily and albuterol every 4 hours as needed, Pulmicort 1 mg twice daily, Perforomist twice daily, pulmonary mass medicine consult appreciated. 9. Tongue cancer, status post partial resection, 08/23/2021. Patient have follow-up with oncology regarding radiation. 10. History of bowel obstruction resulting in resection and ostomy placement. Continue ostomy/colostomy care. 11. Hypertension Currently hypotensive 12. Hyperlipidemia continue atorvastatin 40 mg daily. 13. Glaucoma. Continue eyedrops. 14. DVT prophylaxis. Lovenox. 15. GI prophylaxis. Protonix. CODE STATUS: Full code DISCHARGE PLAN To be determined, most likely Home with [facility], consult with PT and OT added. Impression and plan of care have been directed as dictated by the signing physician. Dori Carter nurse practitioner acting as scribe for signing physician. Objective - Vital Signs Vital signs: Vital Signs Temp 98.3 F 09/18/21 00:00 Pulse 86 09/18/21 07:53 Resp 16 09/18/21 07:00 BP 110/63 09/18/21 07:00 Pulse Ox 95 09/18/21 07:00 Intake & Output 09/17/21 09/18/21 09/18/21 18:59 06:59 18:59 Intake Total 0268.563 7617 130 Output Total 1450 2010 120 Balance -112.916 -450 10 Weight 98.6 kg Intake: IV 1430 130 Sodium Chloride 0.9% 1, 1430 130 000 ml @ 130 mls/hr IV . Q7H42M [facility] Rx#:[id number] Intake, IV Titration 1337.084 130 Amount DOPamine DRIP 800 mg In 4.088 Dextrose/Water 1 250ml. bag @ 5 MCG/KG/MIN 8.76 mls/hr IV .Q24H [facility] Rx#: [id number] Norepinephrine 32 mg In 32.996 Sodium Chloride 0.9% 218 ml @ 0.05 MCG/KG/MIN 2.19 mls/hr IV .Q24H ONE Rx#: [id number] Sodium Chloride 0.9% 1, 1300 130 000 ml @ 130 mls/hr IV . Q7H42M [facility] Rx#:[id number] Output: Urine 1350 1960 120 Stool 100 50 Other: Voiding Method Indwelling Catheter Indwelling Catheter # Bowel Movements 1 - Labs CBC & Chem 7: 09/18/21 07:00 09/18/21 07:00 Labs: Abnormal Lab Results - Last 24 Hours (Table) 09/17/21 09/17/21 09/17/21 Range/Units 11:44 12:55 13:22 RBC (4.30-5.90) m/uL Hgb (13.0-17.5) gm/dL MCV (80.0-100.0) fL Lymphocytes # (1.0-4.8) k/uL Macrocytosis ABG pO2 67 L (83-108) mmHg ABG O2 Saturation 92.3 L (94-97) % Potassium (3.5-5.1) mmol/L BUN (9-20) mg/dL Creatinine (0.66-1.25) mg/dL Glucose (74-99) mg/dL POC Glucose (mg/dL) (75-99) mg/dL AST (17-59) U/L ALT (4-49) U/L Troponin I 0.112 H* (0.000-0.034) ng/mL Albumin (3.5-5.0) g/dL Urine Protein Trace H (Negative) Urine Blood Trace H (Negative) Ur Leukocyte Esterase Small H (Negative) Urine Bacteria Rare H (None) /hpf Hyaline Casts 31 H (0-2) /lpf Urine Mucus Rare H (None) /hpf 09/17/21 09/17/21 09/18/21 Range/Units 15:22 19:48 06:47 RBC (4.30-5.90) m/uL Hgb (13.0-17.5) gm/dL MCV (80.0-100.0) fL Lymphocytes # (1.0-4.8) k/uL Macrocytosis ABG pO2 (83-108) mmHg ABG O2 Saturation (94-97) % Potassium (3.5-5.1) mmol/L BUN (9-20) mg/dL Creatinine (0.66-1.25) mg/dL Glucose (74-99) mg/dL POC Glucose (mg/dL) 186 H 135 H (75-99) mg/dL AST (17-59) U/L ALT (4-49) U/L Troponin I 0.113 H* (0.000-0.034) ng/mL Albumin (3.5-5.0) g/dL Urine Protein (Negative) Urine Blood (Negative) Ur Leukocyte Esterase (Negative) Urine Bacteria (None) /hpf Hyaline Casts (0-2) /lpf Urine Mucus (None) /hpf 09/18/21 09/18/21 Range/Units 07:00 07:00 RBC 3.65 L (4.30-5.90) m/uL Hgb 12.4 L (13.0-17.5) gm/dL MCV 108.0 H (80.0-100.0) fL Lymphocytes # 0.6 L (1.0-4.8) k/uL Macrocytosis Marked A ABG pO2 (83-108) mmHg ABG O2 Saturation (94-97) % Potassium 5.2 H (3.5-5.1) mmol/L BUN 33 H (9-20) mg/dL Creatinine 1.94 H (0.66-1.25) mg/dL Glucose 143 H (74-99) mg/dL POC Glucose (mg/dL) (75-99) mg/dL AST 78 H (17-59) U/L ALT 81 H (4-49) U/L Troponin I (0.000-0.034) ng/mL Albumin 3.3 L (3.5-5.0) g/dL Urine Protein (Negative) Urine Blood (Negative) Ur Leukocyte Esterase (Negative) Urine Bacteria (None) /hpf Hyaline Casts (0-2) /lpf Urine Mucus (None) /hpf
[2021-09-18 16:14] LABS: Glucose,Whole Blood 113 mg/dL (75-99)
[2021-09-18] MEDS: BUDESONIDE 1 MG/2 ML NEBU INHALATION SCH (20:16)
[2021-09-18 20:38] LABS: Glucose,Whole Blood 146 mg/dL (75-99)
[2021-09-18] MEDS: LATANOPROST 0.005% OPHTH DROPS 2.5 ML BTL BOTH EYES SCH (20:54)
[2021-09-19 06:52] LABS: Glucose,Whole Blood 88 mg/dL (75-99)
[2021-09-19] MEDS: INSULIN ASPART (NovoLOG) 100 UNIT/ML VIAL SQ SCH ×4 (07:14→22:15)
--- NOTE | 2021-09-19 07:31 | P.PN ---
Subjective Progress Note Date: 09/19/21 PROGRESS NOTE The patient is a 81 year old female with known history of hypertension, hyperlipidemia, COPD and renal failure who presented with symptoms of hypotension, bradycardia, not feeling well. He was on a high dose beta kenneth. He is feeling better at this time, continues to be on low dose dopamine in sinus mechanism. He denies any chest discomfort, dizziness or palpitations. During his last hospital stay his echocardiogram showed an ejection fraction of 40-45%. He has no nausea or vomiting. He has mild edema. His urinary output is good. He denies any arrhythmia. As an outpatient he was on metoprolol succinate 100 mg twice a day. September 19: The patient feels better today, his breathing is better, he is in sinus mechanism with no further bradycardia. He denies any chest discomfort, dizziness or palpitations. He is tolerating the metoprolol titrate 25 mg twice a day. Hemodynamically he is stable. He is off dopamine and midodrine at this time. He has no nausea and he is tolerating oral intake. PHYSICAL EXAMINATION: Blood pressure 107/60 heart rate 88 LUNGS: Clear to auscultation HEART: Regular rate and rhythm, S1, S2. No S3. systolic ejection murmur 06/18 ABDOMEN: Soft, nontender, no organomegaly EXTREMETIES: 1+ edema LAB: Pending IMPRESSION: 1. Bradycardia, related to beta kenneth, resolved, tolerating low dose beta kenneth 2. Troponin elevation with no evidence of acute coronary syndrome most likely related to chronic kidney disease 3. Chronic kidney disease 4. Diabetes PLAN: 1. Continue present therapy 2. Increase physical activity 3. Stable probable transfer to telemetry floor 4. Depending on his progress further recommendations will be made. Objective - Vital Signs Vital signs: Vital Signs Temp 98.8 F 09/19/21 04:00 Pulse 88 09/19/21 07:00 Resp 7 L 09/19/21 07:00 BP 107/61 09/19/21 07:00 Pulse Ox 97 09/19/21 07:00 Intake & Output 09/18/21 09/19/21 09/19/21 18:59 06:59 18:59 Intake Total 1325 420 Output Total 8315 1125 75 Balance -450 -705 -75 Weight 98.6 kg Intake: IV 405 220 Sodium Chloride 0.9% 1, 405 220 000 ml @ 130 mls/hr IV . Q7H42M [facility] Rx#:[id number] Intake, IV Titration 200 Amount Magnesium Sulfate-D5w Pmx 200 1 gm In Dextrose/Water 1 100ml.bag @ 100 mls/hr IVPB Q1H [facility] Rx#: [id number] Oral 720 200 Output: Urine 725 1125 75 Stool 1050 Other: Voiding Method Indwelling Catheter Indwelling Catheter - Labs CBC & Chem 7: 09/18/21 07:00 09/18/21 07:00 Labs: Abnormal Lab Results - Last 24 Hours (Table) 09/18/21 09/18/21 09/18/21 Range/Units 07:00 07:00 11:33 RBC 3.65 L (4.30-5.90) m/uL Hgb 12.4 L (13.0-17.5) gm/dL MCV 108.0 H (80.0-100.0) fL Lymphocytes # 0.6 L (1.0-4.8) k/uL Macrocytosis Marked A Potassium 5.2 H (3.5-5.1) mmol/L BUN 33 H (9-20) mg/dL Creatinine 1.94 H (0.66-1.25) mg/dL Glucose 143 H (74-99) mg/dL POC Glucose (mg/dL) 188 H (75-99) mg/dL AST 78 H (17-59) U/L ALT 81 H (4-49) U/L Albumin 3.3 L (3.5-5.0) g/dL 09/18/21 09/18/21 Range/Units 16:13 20:36 RBC (4.30-5.90) m/uL Hgb (13.0-17.5) gm/dL MCV (80.0-100.0) fL Lymphocytes # (1.0-4.8) k/uL Macrocytosis Potassium (3.5-5.1) mmol/L BUN (9-20) mg/dL Creatinine (0.66-1.25) mg/dL Glucose (74-99) mg/dL POC Glucose (mg/dL) 113 H 146 H (75-99) mg/dL AST (17-59) U/L ALT (4-49) U/L Albumin (3.5-5.0) g/dL
[2021-09-19] MEDS: PANTOPRAZOLE 40 MG/10 ML VIAL IV SCH ×2 (07:51→07:52)
[2021-09-19] MEDS: ATORVASTATIN 40 MG TAB PO SCH (07:52)
[2021-09-19] MEDS: CYANOCOBALAMIN 500 MCG TAB PO SCH (07:52)
[2021-09-19] MEDS: MIDODRINE 5 MG TAB PO SCH ×3 (07:52→17:27)
[2021-09-19] MEDS: METOPROLOL TARTRATE 25 MG TAB PO SCH ×2 (07:52→22:15)
[2021-09-19] MEDS: TAMSULOSIN 0.4 MG CAP.ER.24H PO SCH (07:52)
[2021-09-19] MEDS: ENOXAPARIN 30 MG/0.3 ML SYRINGE SQ SCH (07:52)
[2021-09-19 08:17] LABS: Calcium 8.7 mg/dL (8.4-10.2); Potassium 4.8 mmol/L (3.5-5.1)
[2021-09-19] MEDS: IPRATROPIUM 0.5 MG/2.5 ML NEBU INHALATION SCH ×4 (08:21→21:12)
[2021-09-19] MEDS: BUDESONIDE 1 MG/2 ML NEBU INHALATION SCH (08:21)
[2021-09-19] MEDS: FORMOTEROL FUMARATE 20 MCG/2 ML NEBU INHALATION SCH (08:21)
--- NOTE | 2021-09-19 09:45 | P.PN ---
Subjective Patient is seen in follow for acute kidney injury. Renal function improving. Good urine output. Denies chest pain or shortness of breath. No active complaints. Off all vasopressors. Vital signs are stable. General: Awake and alert. No acute distress. HEENT: Head exam is unremarkable. LUNGS: Breath sounds decreased. HEART: Rate and Rhythm are regular. ABDOMEN: Soft, no distention. EXTREMITITES: No edema. Objective - Vital Signs Vital signs: Vital Signs Temp 98.2 F 09/19/21 08:30 Pulse 80 09/19/21 09:00 Resp 26 H 09/19/21 09:00 BP 108/49 09/19/21 09:00 Pulse Ox 95 09/19/21 09:00 Intake & Output 09/18/21 09/19/21 09/19/21 18:59 06:59 18:59 Intake Total 1325 420 40 Output Total 1775 1125 475 Balance -450 -705 -435 Weight 98.6 kg Intake: IV 405 220 Sodium Chloride 0.9% 1, 405 220 000 ml @ 130 mls/hr IV . Q7H42M [facility] Rx#:[id number] Intake, IV Titration 200 40 Amount Magnesium Sulfate-D5w Pmx 200 1 gm In Dextrose/Water 1 100ml.bag @ 100 mls/hr IVPB Q1H [facility] Rx#: [id number] Sodium Chloride 0.9% 1, 40 000 ml @ 20 mls/hr IV . Q24H [facility] Rx#:[id number] Oral 720 200 Output: Urine 725 1125 275 Stool 1050 200 Other: Voiding Method Indwelling Catheter Indwelling Catheter Indwelling Catheter - Labs CBC & Chem 7: 09/18/21 07:00 09/19/21 07:16 Labs: Abnormal Lab Results - Last 24 Hours (Table) 09/18/21 09/18/21 09/18/21 Range/Units 11:33 16:13 20:36 Chloride (98-107) mmol/L BUN (9-20) mg/dL Creatinine (0.66-1.25) mg/dL POC Glucose (mg/dL) 188 H 113 H 146 H (75-99) mg/dL 09/19/21 Range/Units 07:16 Chloride 108 H (98-107) mmol/L BUN 29 H (9-20) mg/dL Creatinine 1.54 H (0.66-1.25) mg/dL POC Glucose (mg/dL) (75-99) mg/dL Assessment and Plan Plan: Assessment: 1. Acute kidney injury secondary to ATN secondary to bradycardia/hypotension. Creatinine was 3.01 on admission and is 1.54 today. Creatinine in July 2021 was as low as 1.5. Renal ultrasound from August 2021 showed no hydronephrosis 2. Urinary retention. Currently has a Rogers catheter. On Flomax. 3. Volume overload. Improved. 4. Acute on chronic systolic CHF ejection fraction of 40-45% with severe pulmonary hypertension. 5. Tongue cancer. 6. Hyperkalemia secondary to acute kidney injury and acidosis. Improved. 7. Hypomagnesemia from poor intake. Replaced. Plan: Encourage oral intake. Avoid nephrotoxins. Continue to monitor renal function and urine output. Advised to follow up outpatient 1 week post discharge to establish care.
--- NOTE | 2021-09-19 10:03 | P.PN ---
Subjective Progress Note Date: 09/19/21 Principal diagnosis: Acute kidney injury, bradycardia, hyperkalemia. This is a 81-year-old white male with history of multiple medical problems including COPD, tongue cancer requiring resection over 2 months ago. hypertension, dyslipidemia, patient was recently in the hospital a few weeks ago for acute renal failure with obstructive uropathy and the patient was discharged after placement of a Rogers catheter and he was seen at the time by urology and by nephrology on consultation. Since discharge on 09/08, patient has been seen by urology on outpatient basis, and advised to keep the Rogers catheter in place. Patient presented to the ER yesterday with multiple symptoms including weakness, some shortness of breath, no cough, no wheezing, no chest pain, patient was feeling weak, and he was not noticing any urine in his Rogers catheter. Apparently before arrival to the ER, patient had a syncopal episode lasted seconds. Upon arrival to the ER, patient was noted to have hypotension requiring fluid boluses, patient received 2-1/2 L of fluid boluses, he had a central line placed by the ER physician,and he was started on norepinephrine. Patient was also noted to have sinus bradycardia upon evaluation in the ER. Patient received a treatment for his hyperkalemia, initial potassium was 6.6, however follow-up potassium was 5.3. Creatinine was 3.01 and it came down to 2.92 after fluid boluses. Troponin was elevated at 0.109. Cortisol level was normal thyroid profile was normal. Considering the patient's hypotension and considering his hyperkalemia and the fact the patient is requiring norepinephrine, I was asked to see the patient on consultation, and I accepted the patient for ICU admission. last echocardiogram showed LV dysfunction with ejection fraction of 40-45%. Chest x-ray showed no significant abnormalities. Minimal bibasilar atelectasis is noted Progress note dated 09/18/2021. 81-year-old male who was admitted on September 17. He initially came in with acute kidney injury, bradycardia, and elevated potassium. Patient is currently on 10 L high flow oxygen. He was on dopamine for blood pressure support, and his low heart rate. That has been weaned off. He is getting saline at 75 mL an hour. He has no major complaints at this time. White count 8.4, hemoglobin 12.4, hematocrit 39.4, platelet count 171,000. Sodium 139, potassium 5.2, chlorides 106, CO2 23, anion gap 10, BUN 33, creatinine 1.94. Troponin was 0.113. Albumin 3.3. Chest x-ray my opinion is consistent with fluid overload, and bilateral pleural effusions, and cardiomegaly. Progress note dated 09/19/2021. 81-year-old male was admitted on September 17. He came into the hospital initially with acute kidney injury, bradycardia, and elevated potassium. Currently, his been weaned down to 15 L nasal cannula. Is getting saline at 20 mL an hour. He's feeling much better. He was on dopamine for blood pressure support and bradycardia, but that has been weaned off. Laboratory data today includes a sodium 139, potassium 4.8, chlorides 108, CO2 24, BUN 29, and creatinine 1.54. No chest x-ray today. Objective - Vital Signs Vital signs: Vital Signs Temp 98.2 F 09/19/21 08:30 Pulse 80 09/19/21 09:00 Resp 26 H 09/19/21 09:00 BP 108/49 09/19/21 09:00 Pulse Ox 95 09/19/21 09:00 Intake & Output 09/18/21 09/19/21 09/19/21 18:59 06:59 18:59 Intake Total 1325 420 40 Output Total 1775 1125 475 Balance -450 -505 -435 Weight 98.6 kg Intake: IV 405 220 Sodium Chloride 0.9% 1, 405 220 000 ml @ 130 mls/hr IV . Q7H42M [facility] Rx#:[id number] Intake, IV Titration 200 40 Amount Magnesium Sulfate-D5w Pmx 200 1 gm In Dextrose/Water 1 100ml.bag @ 100 mls/hr IVPB Q1H [facility] Rx#: [id number] Sodium Chloride 0.9% 1, 40 000 ml @ 20 mls/hr IV . Q24H [facility] Rx#:[id number] Oral 720 200 Output: Urine 725 1125 275 Stool 1050 200 Other: Voiding Method Indwelling Catheter Indwelling Catheter Indwelling Catheter - Exam No acute distress, oriented 3. No respiratory distress. Currently on 8 L high flow oxygen. HEENT examination is grossly unremarkable. Neck supple. Full range of motion. No adenopathy thyromegaly or neck vein distention. Cardiovascular examination reveals regular rhythm rate. S1-S2 normal. No S3 or S4. No discernible murmur noted. Heart sounds are distant. Heart rate 80 bpm. Lungs reveal scattered bilateral rhonchi and bibasilar crackles. Breath sounds equal bilaterally. Saturations are 95%. No wheezes are noted. Abdomen soft bowel sounds are heard. No masses or tenderness. Extremities are intact. No cyanosis clubbing or edema. Skin is without rash or lesion. Neurologic examination is brief but nonfocal. - Labs CBC & Chem 7: 09/18/21 07:00 09/19/21 07:16 Labs: Abnormal Lab Results - Last 24 Hours (Table) 09/18/21 09/18/21 09/18/21 Range/Units 11:33 16:13 20:36 Chloride (98-107) mmol/L BUN (9-20) mg/dL Creatinine (0.66-1.25) mg/dL POC Glucose (mg/dL) 188 H 113 H 146 H (75-99) mg/dL 09/19/21 Range/Units 07:16 Chloride 108 H (98-107) mmol/L BUN 29 H (9-20) mg/dL Creatinine 1.54 H (0.66-1.25) mg/dL POC Glucose (mg/dL) (75-99) mg/dL Assessment and Plan Assessment: Hypotension, secondary to hypovolemia, and bradycardia, resolved. Acute on chronic renal failure/acute kidney injury. Chronic hypoxemic respiratory failure secondary to COPD. Hyperkalemia, secondary to acute kidney injury, resolved. Possible acute non-ST segment elevation myocardial infarction. Type 2 diabetes mellitus. Tongue cancer, status post resection. History of colostomy. BPH. Chronic diabetic neuropathy. Plan: Plan dated 09/18/2021. Currently, the patient's doing much better. We will reduce his IV fluids to KVO. Dopamine has been weaned off. Blood pressure and heart rate are much more stable. Today's potassium was 5.2. The patient gets Lasix 40 mg IV push. Additional recommendations and suggestions are forthcoming. Prognosis is guarded. I'm sure later today, the patient can be transferred out of the intensive care unit. Labs, x-rays, medications are reviewed. We will continue to follow the patient make recommendations where appropriate. Plan dated 09/19/2021. The patient is being weaned down, on his oxygen. He remains on saline at 20 mL an hour. We will DC the Pulmicort and the formoterol in favor of Symbicort 1 60/4.5, 2 puffs twice a day. The patient could be transferred to the general medical floor, with telemetry. Labs, x-rays, and medications are reviewed. We will continue to follow the patient and make recommendations where appropriate. Prognosis remains guarded. Time with Patient: Less than 30
--- NOTE | 2021-09-19 10:12 | P.PN ---
Subjective Progress Note Date: 09/19/21 HISTORY OF PRESENT ILLNESS Is a pleasant 81-year-old gentleman, weighing known to my practice, no history of COPD, tongue cancer, hypertension, hyperlipidemia, BPH with lower urinary tract pathology, gout, chronic pleural effusion, glaucoma and arthritis, history of bowel obstruction requiring resection, and colostomy. He had partial resection of the tongue approximately 08/23/2021 IN to the emergency room Secondary to passing out after walking short distances, in the hallway towards the kitchen. Patient did not have any seizure episode at that time, no chest pain, and no palpitations. Patient not been eating well, secondary to dental extraction few weeks ago. He comes in secondary to the blackout episode, probably suffice time, along with being lightheaded, prior to the fall. Patient does not have any new edema, no diuretics were changed during his last visit wi th me, patient is on midodrine 10 mg 3 times a day, for history of orthostatic hypotension. Patient is on Lasix prior to admission, he per her home dose which is not verified, 40 mg daily In the emergency room, patient is hypotensive, entry blood pressure 65 systolic patient required a central line, and placed on pressors. Anything, transferred to ICU, entry potassium 6.6, creatinine 1 and 33.01, BUN of 36, WBC count 11.7, hemoglobin 13.5 patient transferred to ICU, status post 3 L of fluid r esuscitation in the emergency room, consulted with cardiology Dr. Moody, Dr. Herman pulmonary, and Dr. Perrin nephrology 09/18: Patient is seen today in the intensive care unit. Dopamine drip was discontinued this morning. Rogers catheter was requires patient had urinary retention. Heart rate has recovered and patient started on Lopressor per cardiology. Patient is also followed by pulmonary medicine. Patient has been afebrile, heart rate in the 80s, blood pressure 82/53, pulse ox 94% ON 8L high flow nasal cannula. Patient received 1 dose of IV Lasix 40 mg. Nephrology has added Flomax. Patient states that he has had significant amount of gas from his ostomy. Repeat blood work reveals WBC 8.4, hemoglobin 12.4, platelet count 171. Sodium 139, potassium 5.2, chloride 106, CO2 23, BUN 33 and creatinine 1.94. Capillary blood glucose running between 135 and 188. Magnesium 1.6. Total bilirubin 0.9, AST 78, ALT 81 and alkaline phosphatase 64. Chest x-ray reveals bilateral lower lobe infiltrate and pleural effusion correlate for COPD. Differential diagnosis would include pneumonia versus CHF. 09/19:patient remains in intensive care unit and has been hemodynamically stable. We'll plan to transfer out to the cardiac stepdown unit today. Patient has not had any more bradycardia and doing well with Lopressor 25 mg twice daily. Patient denies any chest pain or shortness of breath. Patient is having good urine output through Rogers and also output through ostomy. Repeat blood work shows significant improvement in renal function with BUN 29 and creatinine 1.54. Blood sugars are running between 88 and 146. Discharge plan is home with [facility]. PT and OT ordered. Review of systems: Constitutional: No fever, no chills, no night sweats. No weight change. Reports generalized weakness, reports fatigue. No daytime sleepiness. EENT: No headache. No blurred vision or double vision, no loss of vision. No loss of Hearing, no ringing in the ears, no dizziness. No nasal drainage or congestion. No epistaxis. No sore throat. Lungs: No shortness of breath, cough, no sputum production. No wheezing. Cardiovascular: No chest pain, no lower extremity edema. No palpitations. No paroxysmal nocturnal dyspnea. No orthopnea. No lightheadedness or dizziness. No syncopal episodes. Abdominal: No abdominal pain. No nausea, vomiting. No diarrhea. No constipation. No bloody or tarry stools.. No loss of appetite. Genitourinary: No dysuria, no increased frequency, urgency. chronic urinary retention. Rogers catheter in place. Musculoskeletal: No myalgias. No muscle weakness, no gait dysfunction, no frequent falls. No back pain. No neck pain. Integumentary: No wounds, no lesions. No rash or pruritus. No unusual bruising. No change in hair or nails. Neurologic: No aphasia. No facial droop. No change in mentation. No head injury. No headache. No paralysis. No paresthesia. Psychiatric: No depression. No anxiety. No mood swings. Endocrine: NoTED abnormal blood sugars. No weight change. No excessive sweating or thirst. No cold intolerance. Physical exam: General: This is 81-year-old male. He is resting on the ICU bed and appears to be in no acute distress. Derm: Skin warm and dry, normal coloration for ethnicity. Head: Atraumatic, normocephalic and symmetric. Eyes: EOMs intact, no lid lag, and anicteric sclera Mouth: no lip lesions, dry mucous membrane, has partial resection of one fourth of the tongue towards the left side, with good granulation tissue, no discharge, no open wound in the tongue, Cardiovascular: regular rate and rhythm with normal S1S2, systolic murmur, positive posterior tibial pulses bilaterally, and cap refill < 2 seconds. Lungs: Respirations even, regular, and unlabored on room air. Lungs CTA bilaterally, no rhonchi, no rales, no wheezing, and no accessory muscle usage. Abdominal: Obese abdomen soft, nontender to palpation, no guarding, no appreciable organomegaly. Ostomy right lower quadrant Ext: ROM intact. No gross muscle atrophy, no edema, no contractures Neuro: Speech clear, face symmetrical and CN II-XII grossly intact with no noted focal neuro deficits Psych: Alert and oriented to person, place, time, and situation. Appropriate and pleasant affect. Assessment and Plan 1. Hypotension secondary to bradycardia and hypokalemia. Consult with sample tester grinder and cardiology appreciated. Continue Lopressor 25 mg twice daily. Continue cardiac monitoring in transferred to the cardiac stepdown unit. 2. Bradycardia secondary to beta kenneth, stabilized and patient resumed on metoprolol. 3. Acute renal failure secondary to ATN and bradycardia and hypotension with history of CKD stage IIIB. A nephrology consult appreciated, avoid nephrotoxic agents and monitor renal function and urine output. 4. Chronic urinary retention. Rogers catheter, Flomax. 5. Acute on chronic systolic heart failure with EF of 40-45%. 6. Hyperkalemia secondary to acute kidney injury and metabolic acidosis, st able. 7. Elevated troponin and acute coronary syndrome has been ruled out by cardiology. 8. Chronic hypoxic respiratory failure secondary to COPD. Continue Atrovent nebulizer treatments 4 times daily and albuterol every 4 hours as needed, Pulmicort 1 mg twice daily, Perforomist twice daily, pulmonary mass medicine consult appreciated. 9. Tongue cancer, status post partial resection, 08/23/2021. Patient have follow-up with oncology regarding radiation. 10. History of bowel obstruction resulting in resection and ostomy placement. Continue ostomy/colostomy care. 11. Hypertension Currently hypotensive 12. Hyperlipidemia continue atorvastatin 40 mg daily. 13. Glaucoma. Continue eyedrops. 14. DVT prophylaxis. Lovenox. 15. GI prophylaxis. Protonix. CODE STATUS: Full code DISCHARGE PLAN Home with [facility], consult with PT and OT added. Impression and plan of care have been directed as dictated by the signing physician. Dori Carter nurse practitioner acting as scribe for signing physician. Objective - Vital Signs Vital signs: Vital Signs Temp 98.2 F 09/19/21 08:30 Pulse 80 09/19/21 09:00 Resp 26 H 09/19/21 09:00 BP 108/49 09/19/21 09:00 Pulse Ox 95 09/19/21 09:00 Intake & Output 09/18/21 09/19/21 09/19/21 18:59 06:59 18:59 Intake Total 1325 420 40 Output Total 1775 1125 475 Balance -450 -705 -350 Weight 98.6 kg Intake: IV 405 220 Sodium Chloride 0.9% 1, 405 220 000 ml @ 130 mls/hr IV . Q7H42M [facility] Rx#:[id number] Intake, IV Titration 200 40 Amount Magnesium Sulfate-D5w Pmx 200 1 gm In Dextrose/Water 1 100ml.bag @ 100 mls/hr IVPB Q1H [facility] Rx#: [id number] Sodium Chloride 0.9% 1, 40 000 ml @ 20 mls/hr IV . Q24H [facility] Rx#:[id number] Oral 720 200 Output: Urine 725 1125 275 Stool 1050 200 Other: Voiding Method Indwelling Catheter Indwelling Catheter Indwelling Catheter - Labs CBC & Chem 7: 09/18/21 07:00 09/19/21 07:16 Labs: Abnormal Lab Results - Last 24 Hours (Table) 09/18/21 09/18/21 09/18/21 Range/Units 11:33 16:13 20:36 Chloride (98-107) mmol/L BUN (9-20) mg/dL Creatinine (0.66-1.25) mg/dL POC Glucose (mg/dL) 188 H 113 H 146 H (75-99) mg/dL 09/19/21 Range/Units 07:16 Chloride 108 H (98-107) mmol/L BUN 29 H (9-20) mg/dL Creatinine 1.54 H (0.66-1.25) mg/dL POC Glucose (mg/dL) (75-99) mg/dL
[2021-09-19 11:23] LABS: Glucose,Whole Blood 91 mg/dL (75-99)
[2021-09-19 17:15] LABS: Glucose,Whole Blood 105 mg/dL (75-99)
[2021-09-19] MEDS: SYMBICORT 160-4.5 MCG INHALER INHALATION SCH (21:12)
[2021-09-19] MEDS: LATANOPROST 0.005% OPHTH DROPS 2.5 ML BTL BOTH EYES SCH (21:20)
[2021-09-19 22:01] LABS: Glucose,Whole Blood 118 mg/dL (75-99)
[2021-09-19] MEDS: SODIUM CHLORIDE 0.9% 1,000 ML IV SCH (22:17)
[2021-09-20 04:55] VITALS: TEMP 97.9
[2021-09-20 07:07] LABS: Glucose,Whole Blood 88 mg/dL (75-99)
[2021-09-20] MEDS: INSULIN ASPART (NovoLOG) 100 UNIT/ML VIAL SQ SCH ×2 (07:23→11:53)
[2021-09-20 07:38] LABS: African American GFR (CKD) 51 (>60 ml/min/1.73 sqM); Anion Gap 7 mmol/L; Blood Urea Nitrogen 24 mg/dL (9-20); Calcium 8.9 mg/dL (8.4-10.2); Carbon Dioxide 25 mmol/L (22-30); Chloride 107 mmol/L (98-107); Glucose 84 mg/dL (74-99); Non-African American GFR(CKD) 45 (>60 ml/min/1.73 sqM); Potassium 4.5 mmol/L (3.5-5.1); Sodium 139 mmol/L (137-145)
[2021-09-20 07:58] VITALS: BP 111/79; RESP 18
[2021-09-20] MEDS: ENOXAPARIN 30 MG/0.3 ML SYRINGE SQ SCH (08:07)
[2021-09-20] MEDS: PANTOPRAZOLE 40 MG/10 ML VIAL IV SCH (08:08)
[2021-09-20] MEDS: MIDODRINE 5 MG TAB PO SCH ×2 (08:09→12:00)
[2021-09-20] MEDS: CYANOCOBALAMIN 500 MCG TAB PO SCH (08:09)
[2021-09-20] MEDS: ATORVASTATIN 40 MG TAB PO SCH (08:09)
[2021-09-20] MEDS: TAMSULOSIN 0.4 MG CAP.ER.24H PO SCH (08:09)
[2021-09-20] MEDS: METOPROLOL TARTRATE 25 MG TAB PO SCH (08:09)
--- NOTE | 2021-09-20 08:12 | P.DS ---
Providers Date of admission: 09/17/21 04:06 Expected date of discharge: 09/20/21 Attending physician: Zainab Patrick Consults: 09/17/21 04:07 Consult Physician Routine Consulting Provider: Bailee Colon Consult Reason/Comments: sheela Do you want consulting provider notified?: Yes Consult Physician Routine Consulting Provider: Donna Perrin Consult Reason/Comments: michaelle,hyperK Do you want consulting provider notified?: Yes 09/17/21 04:43 Consult Physician Routine Consulting Provider: Praveena Irizarry Consult Reason/Comments: icu Do you want consulting provider notified?: Yes Primary care physician: [facility] Course: HISTORY OF PRESENT ILLNESS Is a pleasant 81-year-old gentleman, weighing known to my practice, no history of COPD, tongue cancer, hypertension, hyperlipidemia, BPH with lower urinary tract pathology, gout, chronic pleural effusion, glaucoma and arthritis, history of bowel obstruction requiring resection, and colostomy. He had partial resection of the tongue approximately 08/23/2021 IN to the emergency room Secondary to passing out after walking short distances, in the hallway towards the kitchen. Patient did not have any seizure episode at that time, no chest pain, and no palpitations. Patient not been eating well, secondary to dental extraction few weeks ago. He comes in secondary to the blackout episode, probably suffice time, along with being lightheaded, prior to the fall. Patient does not have any new edema, no diuretics were changed during his last visit with me, patient is on midodrine 10 mg 3 times a day, for history of orthostatic hypotension. Patient is on Lasix prior to admission, he per her home dose which is not verified, 40 mg daily In the emergency room, patient is hypotensive, entry blood pressure 65 systolic patient required a central line, and placed on pressors. Anything, transferred to ICU, entry potassium 6.6, creatinine 1 and 33.01, BUN of 36, WBC count 11.7, hemoglobin 13.5 patient transferred to ICU, status post 3 L of fluid resuscitation in the emergency room, consulted with cardiology Dr. Moody, Dr. Herman pulmonary, and Dr. Perrin nephrology 09/18: Patient is seen today in the intensive care unit. Dopamine drip was discontinued this morning. Nguyen catheter was requires patient had urinary retention. Heart rate has recovered and patient started on Lopressor per cardiology. Patient is also followed by pulmonary medicine. Patient has been afebrile, heart rate in the 80s, blood pressure 82/53, pulse ox 94% ON 8L high flow nasal cannula. Patient received 1 dose of IV Lasix 40 mg. Nephrology has added Flomax. Patient states that he has had significant amount of gas from his ostomy. Repeat blood work reveals WBC 8.4, hemoglobin 12.4, platelet count 171. Sodium 139, potassium 5.2, chloride 106, CO2 23, BUN 33 and creatinine 1.94. Capillary blood glucose running between 135 and 188. Magnesium 1.6. Total bilirubin 0.9, AST 78, ALT 81 and alkaline phosphatase 64. Chest x-ray reveals bilateral lower lobe infiltrate and pleural effusion correlate for COPD. Differential diagnosis would include pneumonia versus CHF. 09/19:patient remains in intensive care unit and has been hemodynamically stable. We'll plan to transfer out to the cardiac stepdown unit today. Patient has not had any more bradycardia and doing well with Lopressor 25 mg twice daily. Patient denies any chest pain or shortness of breath. Patient is having good urine output through Nguyen and also output through ostomy. Repeat blood work shows significant improvement in renal function with BUN 29 and creatinine 1.54. Blood sugars are running between 88 and 146. Discharge plan is home with [facility]. PT and OT ordered. 09/20: Patient has been seen by nephrology and cleared for discharge home today. BUN 24, Creatinine 1.48. A new consult was added for Dr. Loya, nguyen removed with voiding trial, continued on flomax. Patient has been afebrile, HR 84, BP 11/79, PO 92% on 5 L nasal cannula. Patient is also been cleared for discharge from cardiology we'll plan to follow up with Dr. Moody. Patient will be discharged today in stable condition. DISCHARGE DIAGNOSES 1. Hypotension secondary to bradycardia and hypokalemia. 2. Bradycardia secondary to beta kenneth, stabilized and patient resumed on metoprolol. 3. Acute renal failure secondary to ATN and bradycardia and hypotension with history of CKD stage IIIB. 4. Chronic urinary retention. 5. Acute on chronic systolic heart failure with EF of 40-45%. 6. Hyperkalemia secondary to acute kidney injury and metabolic acidosis, stable. 7. Elevated troponin and acute coronary syndrome has been ruled out by cardiology. 8. Chronic hypoxic respiratory failure secondary to COPD. 9. Tongue cancer, status post partial resection, 08/23/2021. 10. History of bowel obstruction resulting in resection and ostomy placement. 11. Hypertension 12. Hyperlipidemia 13. Glaucoma. DISCHARGE PLAN Home with [facility] home care Greater than 35 minutes was utilized and coordinating patient's discharge. Impression and plan of care have been directed as dictated by the signing physician. Dori Carter nurse practitioner acting as scribe for signing physician. Patient Condition at Discharge: Good Plan - Discharge Summary Discharge Rx Participant: No New Discharge Prescriptions: New Metoprolol Tartrate [Lopressor] 25 mg PO BID #60 tab Continue Albuterol Sulfate [Proair Hfa] 2 puff INHALATION RT-Q4H PRN PRN Reason: Shortness Of Breath Multivitamins, Thera [Multivitamin (formulary)] 1 tab PO DAILY Magnesium Oxide 400 mg PO HS Aspirin EC [Ecotrin Low Dose] 81 mg PO DAILY Pantoprazole [Protonix] 40 mg PO BID Allopurinol [Zyloprim] 100 mg PO BID Tamsulosin [Flomax] 0.4 mg PO PC-BRKFST #30 tab Sodium Bicarbonate Tab 650 mg PO DAILY #20 tab Furosemide [Lasix] 40 mg PO DAILY #0 Acetaminophen with Codeine [Tylenol w/Codeine 120-12 mg/5 ml] 5 - 10 ml PO Q4H PRN PRN Reason: Pain Umeclidinium Brm/Vilanterol Tr [Anoro Ellipta 62.5-25 Mcg INH] 1 puff INHALATION RT-DAILY Atorvastatin [Lipitor] 40 mg PO DAILY [place]-3 Fatty Acids/Fish Oil [Fish Oil 1,000 mg Softgel] 1 cap PO DAILY Latanoprost/Pf [Latanoprost 0.005% Eye Drop] 1 drop BOTH EYES HS Dorzolamide 2% [Trusopt 2%] 1 drop BOTH EYES BID Cyanocobalamin [Vitamin B-12] 500 mcg PO DAILY Acetaminophen [Tylenol 8 Hour] 1,300 mg PO BID PRN PRN Reason: Pain Midodrine HCl [ProAmatine] 10 mg PO TID Potassium Chloride ER [K-Dur 10] 10 meq PO DAILY #30 tab Discontinued Metoprolol Succinate (ER) [Toprol XL] 100 mg PO DAILY Clindamycin HCl 300 mg PO Q6H Discharge Medication List Acetaminophen [Tylenol 8 Hour] 1,300 mg PO BID PRN 07/24/21 [History] Albuterol Sulfate [Proair Hfa] 2 puff INHALATION RT-Q4H PRN 07/24/21 [History] Allopurinol [Zyloprim] 100 mg PO BID 07/24/21 [History] Aspirin EC [Ecotrin Low Dose] 81 mg PO DAILY 07/24/21 [History] Atorvastatin [Lipitor] 40 mg PO DAILY 07/24/21 [History] Cyanocobalamin [Vitamin B-12] 500 mcg PO DAILY 07/24/21 [History] Dorzolamide 2% [Trusopt 2%] 1 drop BOTH EYES BID 07/24/21 [History] Latanoprost/Pf [Latanoprost 0.005% Eye Drop] 1 drop BOTH EYES HS 07/24/21 [History] Magnesium Oxide 400 mg PO HS 07/24/21 [History] Midodrine HCl [ProAmatine] 10 mg PO TID 07/24/21 [History] Multivitamins, Thera [Multivitamin (formulary)] 1 tab PO DAILY 07/24/21 [History] [place]-3 Fatty Acids/Fish Oil [Fish Oil 1,000 mg Softgel] 1 cap PO DAILY 07/24/21 [History] Pantoprazole [Protonix] 40 mg PO BID 07/24/21 [History] Umeclidinium Brm/Vilanterol Tr [Anoro Ellipta 62.5-25 Mcg INH] 1 puff INHALATION RT-DAILY 07/24/21 [History] Furosemide [Lasix] 40 mg PO DAILY #0 09/08/21 [Rx] Potassium Chloride ER [K-Dur 10] 10 meq PO DAILY #30 tab 09/08/21 [Rx] Sodium Bicarbonate Tab 650 mg PO DAILY #20 tab 09/08/21 [Rx] Tamsulosin [Flomax] 0.4 mg PO PC-BRKFST #30 tab 09/08/21 [Rx] Acetaminophen with Codeine [Tylenol w/Codeine 120-12 mg/5 ml] 5 - 10 ml PO Q4H PRN 09/17/21 [History] Metoprolol Tartrate [Lopressor] 25 mg PO BID #60 tab 09/20/21 [Rx] Follow up Appointment(s)/Referral(s): [facility], [NON-STAFF] - ([facility] will contact you to schedule a visit.) Zainab Patrick MD [Primary Care Provider] - 3 Days Steven Oneal DO [STAFF PHYSICIAN] - 1 Week Discharge Disposition: HOME WITH HOME HEALTH SERVICES
[2021-09-20] MEDS: SYMBICORT 160-4.5 MCG INHALER INHALATION SCH (09:10)
[2021-09-20] MEDS: IPRATROPIUM 0.5 MG/2.5 ML NEBU INHALATION SCH ×2 (09:10→12:32)
--- NOTE | 2021-09-20 09:40 | P.PN ---
Subjective Patient is seen in follow for acute kidney injury. Renal function improving. Good urine output. Has Rogers catheter due to urinary retention. Denies chest pain or shortness of breath. No active complaints. Vital signs are stable. General: Awake and alert. No acute distress. HEENT: Head exam is unremarkable. LUNGS: Breath sounds decreased. HEART: Rate and Rhythm are regular. ABDOMEN: Soft, no distention. EXTREMITITES: No edema. Objective - Vital Signs Vital signs: Vital Signs Temp 97.9 F 09/20/21 07:56 Pulse 84 09/20/21 09:24 Resp 18 09/20/21 07:56 BP 111/79 09/20/21 07:56 Pulse Ox 92 L 09/20/21 07:56 Intake & Output 09/19/21 09/20/21 09/20/21 18:59 06:59 18:59 Intake Total 1820 500 Output Total 3800 1200 1000 Balance -1980 -700 -1000 Weight 99.5 kg Intake: Intake, IV Titration 60 Amount Sodium Chloride 0.9% 1, 60 000 ml @ 20 mls/hr IV . Q24H [facility] Rx#:[id number] Oral 1760 500 Output: Urine 1600 1000 1000 Uretheral (Rogers) 1000 Stool 2200 200 Other: Voiding Method Indwelling Catheter Indwelling Catheter # Voids 1 - Labs CBC & Chem 7: 09/18/21 07:00 09/20/21 06:08 Labs: Abnormal Lab Results - Last 24 Hours (Table) 09/19/21 09/19/21 09/20/21 Range/Units 17:13 21:48 06:08 BUN 24 H (9-20) mg/dL Creatinine 1.48 H (0.66-1.25) mg/dL POC Glucose (mg/dL) 105 H 118 H (75-99) mg/dL Assessment and Plan Plan: Assessment: 1. Acute kidney injury secondary to ATN secondary to bradycardia/hypotension. Creatinine was 3.01 on admission and is 1.48 today. Creatinine in July 2021 was as low as 1.5. Renal ultrasound from August 2021 showed no hydronephrosis 2. Urinary retention. Currently has a Rogers catheter. On Flomax. He was to follow-up with urology outpatient but missed appointment as he ended up back in the hospital. 3. Volume overload. Improved. 4. Acute on chronic systolic CHF ejection fraction of 40-45% with severe pulmonary hypertension. 5. Tongue cancer. 6. Hyperkalemia secondary to acute kidney injury and acidosis. Improved. 7. Hypomagnesemia from poor intake. Replaced. Plan: Encourage oral intake. Avoid nephrotoxins. Continue to monitor renal function and urine output. Urology consulted regarding need for Rogers catheter. Advised to follow up outpatient 1 week post discharge to establish care.
--- NOTE | 2021-09-20 09:42 | P.PN ---
Subjective Progress Note Date: 09/20/21 HISTORY OF PRESENT ILLNESS: Patient examined this morning at the bedside. Patient denies chest pain or pressure. He denies shortness of breath. Vital signs are stable. Patient's h eart rate remained stable. He denies any dizziness or lightheadedness. He is tolerating metoprolol 25 mg twice a day. He is hoping to be discharged home today. PHYSICAL EXAM: VITAL SIGNS: Reviewed. GENERAL: Well-developed in no acute distress. NECK: Supple. No JVD or thyromegaly LUNGS: Respirations even and unlabored. Lungs essentially clear to auscultation bilaterally. HEART: Regular rate and rhythm. S1 and S2 heard. Systolic murmur noted. EXTREMITIES: Normal range of motion. No clubbing or cyanosis. Peripheral pulses intact. No lower extremity edema ASSESSMENT: Bradycardia, related to high-dose beta kenneth and hyperkalemia, resolved Abnormal troponins, secondary to chronic kidney disease, no evidence of acute coronary syndrome Chronic kidney disease Diabetes PLAN: Patient is stable for discharge home today from a cardiac standpoint. Continue current cardiac medications. Patient to follow up outpatient with Dr. Moody Nurse practitioner note has been reviewed by physician. Signing provider agrees with the documented findings, assessment, and plan of care. Objective - Vital Signs Vital signs: Vital Signs Temp 97.9 F 09/20/21 07:56 Pulse 84 09/20/21 09:24 Resp 18 09/20/21 07:56 BP 111/79 09/20/21 07:56 Pulse Ox 92 L 09/20/21 07:56 Intake & Output 09/19/21 09/20/21 09/20/21 18:59 06:59 18:59 Intake Total 1820 500 Output Total 3800 1200 1000 Balance -1980 -700 -1000 Weight 99.5 kg Intake: Intake, IV Titration 60 Amount Sodium Chloride 0.9% 1, 60 000 ml @ 20 mls/hr IV . Q24H [facility] Rx#:[id number] Oral 1760 500 Output: Urine 1600 1000 1000 Uretheral (Rogers) 1000 Stool 2200 200 Other: Voiding Method Indwelling Catheter Indwelling Catheter # Voids 1 - Labs CBC & Chem 7: 09/18/21 07:00 09/20/21 06:08 Labs: Abnormal Lab Results - Last 24 Hours (Table) 09/19/21 09/19/21 09/20/21 Range/Units 17:13 21:48 06:08 BUN 24 H (9-20) mg/dL Creatinine 1.48 H (0.66-1.25) mg/dL POC Glucose (mg/dL) 105 H 118 H (75-99) mg/dL
--- NOTE | 2021-09-20 09:43 | P.PN ---
Subjective Progress Note Date: 09/20/21 Principal diagnosis: Acute kidney injury, chronic hypoxic respiratory failure On 09/20/2021 patient seen in follow-up on medical surgical floor. He is resting comfortably in bed, on 5 L of oxygen his pulse ox is 95%. He is breathing comfortably, appears to be in no acute distress, no complaints of worsening dyspnea, no cough or chest pain. Patient states he was able to walk down the august[place] 75 feet, tolerated activity well. No IV fluids, IVs have been hep-locked. No fever or chills. His last chest x-ray from 09/18/2021 showed bilateral lower lobe infiltrates and pleural effusion. Vital signs have been stable, patient's renal function is improving, he is tolerating oral intake, no nausea vomiting or diarrhea, today's labs have been reviewed, his renal function continues to improve and creatinine is down to 1.48, with BUN of 24, and GFR is up to 45. No acute events overnight. Patient will likely be considered for discharge home today Objective - Vital Signs Vital signs: Vital Signs Temp 97.9 F 09/20/21 07:56 Pulse 84 09/20/21 09:24 Resp 18 09/20/21 07:56 BP 111/79 09/20/21 07:56 Pulse Ox 92 L 09/20/21 07:56 Intake & Output 09/19/21 09/20/21 09/20/21 18:59 06:59 18:59 Intake Total 1820 500 Output Total 3800 1200 1000 Balance -1980 -700 -1000 Weight 99.5 kg Intake: Intake, IV Titration 60 Amount Sodium Chloride 0.9% 1, 60 000 ml @ 20 mls/hr IV . Q24H [facility] Rx#:[id number] Oral 1760 500 Output: Urine 1600 1000 1000 Uretheral (Rogers) 1000 Stool 2200 200 Other: Voiding Method Indwelling Catheter Indwelling Catheter # Voids 1 - Exam GENERAL EXAM: Alert, very pleasant, 81-year-old male on 5 L of oxygen the pulse ox of 92-95% comfortable in no apparent distress. HEAD: Normocephalic/atraumatic. EYES: Normal reaction of pupils, equal size. Conjunctiva pink, sclera white. NOSE: Clear with pink turbinates. THROAT: No erythema or exudates. NECK: No masses, no JVD, no thyroid enlargement, no adenopathy. CHEST: No chest wall deformity. Symmetrical expansion. LUNGS: Equal air entry with no crackles, wheeze, rhonchi or dullness. CVS: Regular rate and rhythm, normal S1 and S2, no gallops, no murmurs, no rubs ABDOMEN: Soft, nontender. No hepatosplenomegaly, normal bowel sounds, no guarding or rigidity. EXTREMITIES: No clubbing, no edema, no cyanosis, 2+ pulses and upper and lower extremities. MUSCULOSKELETAL: Muscle strength and tone normal. SPINE: No scoliosis or deformity SKIN: No rashes CENTRAL NERVOUS SYSTEM: Alert and oriented -3. No focal deficits, tone is normal in all 4 extremities. PSYCHIATRIC: Alert and oriented -3. Appropriate affect. Intact judgment and insight. - Labs CBC & Chem 7: 09/18/21 07:00 09/20/21 06:08 Labs: Abnormal Lab Results - Last 24 Hours (Table) 09/19/21 09/19/21 09/20/21 Range/Units 17:13 21:48 06:08 BUN 24 H (9-20) mg/dL Creatinine 1.48 H (0.66-1.25) mg/dL POC Glucose (mg/dL) 105 H 118 H (75-99) mg/dL Assessment and Plan Plan: Assessment: #1. Hypotension related to hypovolemia and bradycardia, resolved #2. Acute on chronic renal failure, acute kidney injury, improved #3. Chronic hypoxic respiratory failure related to COPD #4. Hyperkalemia related to acute kidney injury, resolved #5. Possible acute non-ST segment elevated myocardial infarction #6. Type 2 diabetes mellitus #7. History of tongue cancer, status post surgical resection #8. History of colostomy #9. Benign prostatic hypertrophy with multiple obstruction #10. History of obstructive uropathy #11. Chronic diabetic neuropathy Plan: Increase activity as tolerated Patient has been stable, no worsening dyspnea, renal function is improving on today's labs Vital signs have been stable Tolerating ambulation Frpm pulmonary perspective he can be considered for discharge home Outpatient follow-up with Dr. Olivares in the office in 7-10 days I have personally seen and examined the patient, performed the documentation and the assessment and plan as written. Number of minutes spent on the visit: 10 Time with Patient: Less than 30
[2021-09-20 11:15] LABS: Glucose,Whole Blood 129 mg/dL (75-99)
[2021-09-20 12:33] VITALS: PULSE 80
--- NOTE | 2021-09-20 19:19 | P.GSCN ---
History of Present Illness Reason for Consult: Urinary retention History of present illness: This is 81-year-old male admitted to the hospital with acute kidney injury. Urology is consulted for urinary retention, he was recently seen during his last hospital admission for urinary retention, and was discharged home with the Rogers catheter. Was supposed to follow up this week for a trial of void, but did not follow up due to the current hospital admission. Previous hx of retention and he underwent a TURP following his retention episode at [facility], indicated after his surgery he's been voiding without issues with good flow. Denies any dysuria or gross hematuria or flank pain. He does have family history of prostate cancer. Plan is to discharge patient home today Review of Systems - Constitutional Denies fever, Denies weight loss - EENT Ears, nose, mouth and throat: Denies dysphagia - Cardiovascular Denies chest pain, Denies shortness of breath - Gastrointestinal Reports as per HPI - Genitourinary Reports urinary retention - Neurological Denies headaches, Denies syncope Past Medical History Past Medical History: Cancer, Chest Pain / Angina, Heart Failure, COPD, Diabetes Mellitus, Eye Disorder, GERD/Reflux, Hyperlipidemia, Hypertension, Osteoarthritis (OA), Prostate Disorder, Renal Disease Additional Past Medical History / Comment(s): Leeann albicans/oral/on antibiotic, 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 History of Any Multi-Drug Resistant Organisms: None Reported Past Surgical History: Bowel Resection, Joint Replacement, Prostate Surgery Additional Past Surgical History / Comment(s): Colostomy, TURP, R total knee arthroplasty, bilateral cataract removals/lens implants. Past Anesthesia/Blood Transfusion Reactions: No Reported Reaction Past Psychological History: No Psychological Hx Reported Additional Psychological History / Comment(s): Pt resides with his spouse. He has [facility]. He uses a walker to ambulate. His spouse manages his meds and assists with washing up. Spouse also is his [employer] tank driver. Smoking Status: Former smoker Past Alcohol Use History: None Reported Additional Past Alcohol Use History / Comment(s): Pt started smoking in 6 and quit in 1976. Pt no longer drinks but has hx of alcoholism. Past Drug Use History: None Reported - Past Family History Father Additional Family Medical History / Comment(s): Father lived to be 91 yrs old. He had a pacer. Mother Family Medical History: Diabetes Mellitus Additional Family Medical History / Comment(s): kidney cancer Medications and Allergies Home Medications Medication Instructions Recorded Confirmed Type Acetaminophen [Tylenol 8 Hour] 1,300 mg PO BID PRN 07/24/21 09/17/21 History Albuterol Sulfate [Proair Hfa] 2 puff INHALATION RT-Q4H PRN 07/24/21 09/17/21 History Allopurinol [Zyloprim] 100 mg PO BID 07/24/21 09/17/21 History Aspirin EC [Ecotrin Low Dose] 81 mg PO DAILY 07/24/21 09/17/21 History Atorvastatin [Lipitor] 40 mg PO DAILY 07/24/21 09/17/21 History Cyanocobalamin [Vitamin B-12] 500 mcg PO DAILY 07/24/21 09/17/21 History Dorzolamide 2% [Trusopt 2%] 1 drop BOTH EYES BID 07/24/21 09/17/21 History Latanoprost/Pf [Latanoprost 0.005% 1 drop BOTH EYES HS 07/24/21 09/17/21 History Eye Drop] Magnesium Oxide 400 mg PO HS 07/24/21 09/17/21 History Midodrine HCl [ProAmatine] 10 mg PO TID 07/24/21 09/17/21 History Multivitamins, Thera [Multivitamin 1 tab PO DAILY 07/24/21 09/17/21 History (formulary)] Volin-3 Fatty Acids/Fish Oil [Fish 1 cap PO DAILY 07/24/21 09/17/21 History Oil 1,000 mg Softgel] Pantoprazole [Protonix] 40 mg PO BID 07/24/21 09/17/21 History Umeclidinium Brm/Vilanterol Tr 1 puff INHALATION RT-DAILY 07/24/21 09/17/21 History [Anoro Ellipta 62.5-25 Mcg INH] Furosemide [Lasix] 40 mg PO DAILY #0 09/08/21 09/17/21 Rx Potassium Chloride ER [K-Dur 10] 10 meq PO DAILY #30 tab 09/08/21 09/17/21 Rx Sodium Bicarbonate Tab 650 mg PO DAILY #20 tab 09/08/21 09/17/21 Rx Tamsulosin [Flomax] 0.4 mg PO PC-BRKFST #30 tab 09/08/21 09/17/21 Rx Acetaminophen with Codeine 5 - 10 ml PO Q4H PRN 09/17/21 09/17/21 History [Tylenol w/Codeine 120-12 mg/5 ml] Metoprolol Tartrate [Lopressor] 25 mg PO BID #60 tab 09/20/21 Rx Allergies Allergy/AdvReac Type Severity Reaction Status Date / Time Penicillins Allergy Rash/Hives Verified 09/17/21 12:40 shellfish derived [Shellfish] Allergy Nausea & Verified 09/17/21 12:40 Vomiting Surgical - Exam Vital Signs Temp Pulse Resp Pulse Ox 98.2 F 52 L 18 96 09/17/21 01:48 09/17/21 01:48 09/17/21 01:48 09/17/21 01:48 - General no distress, no pain - Eyes normal ocular movement, no pale - ENT normal nares, normal mucosa - Respiratory normal expansion, normal respiratory effort - Abdomen Abdomen: soft, non tender, no distended - Psychiatric oriented to time, oriented to person, oriented to place Results - Labs 09/18/21 07:00 09/20/21 06:08 Abnormal Lab Results - Last 24 Hours (Table) 09/19/21 09/19/21 09/20/21 Range/Units 17:13 21:48 06:08 BUN 24 H (9-20) mg/dL Creatinine 1.48 H (0.66-1.25) mg/dL POC Glucose (mg/dL) 105 H 118 H (75-99) mg/dL 09/20/21 Range/Units 11:12 BUN (9-20) mg/dL Creatinine (0.66-1.25) mg/dL POC Glucose (mg/dL) 129 H (75-99) mg/dL Diabetes panel 09/20/21 Range/Units 06:08 Sodium 139 (137-145) mmol/L Potassium 4.5 (3.5-5.1) mmol/L Chloride 107 (98-107) mmol/L Carbon Dioxide 25 (22-30) mmol/L BUN 24 H (9-20) mg/dL Creatinine 1.48 H (0.66-1.25) mg/dL Glucose 84 (74-99) mg/dL Calcium 8.9 (8.4-10.2) mg/dL Calcium panel 09/20/21 Range/Units 06:08 Calcium 8.9 (8.4-10.2) mg/dL Pituitary panel 09/20/21 Range/Units 06:08 Sodium 139 (137-145) mmol/L Potassium 4.5 (3.5-5.1) mmol/L Chloride 107 (98-107) mmol/L Carbon Dioxide 25 (22-30) mmol/L BUN 24 H (9-20) mg/dL Creatinine 1.48 H (0.66-1.25) mg/dL Glucose 84 (74-99) mg/dL Calcium 8.9 (8.4-10.2) mg/dL Adrenal panel 09/20/21 Range/Units 06:08 Sodium 139 (137-145) mmol/L Potassium 4.5 (3.5-5.1) mmol/L Chloride 107 (98-107) mmol/L Carbon Dioxide 25 (22-30) mmol/L BUN 24 H (9-20) mg/dL Creatinine 1.48 H (0.66-1.25) mg/dL Glucose 84 (74-99) mg/dL Calcium 8.9 (8.4-10.2) mg/dL Assessment and Plan Assessment: 81-year-old male with urinary retention, previous history and TURP approximately 3 years ago. Rogers was placed during the last hospital admission at that time he had 600 mL in his bladder -Trial of void today, if PVR is less than 400 mL okay for discharge from urology standpoint. Advised to continue Flomax for now. If PVR is greater than 400 mL recommend reinserting the Rogers and following up in 2 weeks for trial of void -Follow up in 2 weeks
== END 2021-09-20 14:11 | disposition home health service (06) | DRG 291 ==
LOC: EC 21:55 → 3SCARD 09-17 04:06 → UNDOADMIN 09-17 04:06 → 2SICU 09-17 04:06 → 5NMEDONC 09-19 12:14
PROVIDERS: ADMIT Family Medicine; ATTEND Family Medicine
PROC: 3E033XZ Introduction of Vasopressor into Peripheral Vein, Percutaneous Approach (ICD-10-PCS; principal; 2021-09-17)
PROC: 5A0945A Assistance with Respiratory Ventilation, 24-96 Consecutive Hours, High Flow/Velocity Cannula (ICD-10-PCS; 2021-09-17)
DX: I13.0 Hypertensive heart and chronic kidney disease with heart failure and stage 1 through stage 4 chronic kidney disease, or unspecified chronic kidney disease (principal); I50.23 Acute on chronic systolic (congestive) heart failure; N17.0 Acute kidney failure with tubular necrosis; R57.1 Hypovolemic shock; E87.2 Acidosis; J96.11 Chronic respiratory failure with hypoxia; N13.8 Other obstructive and reflux uropathy; C02.9 Malignant neoplasm of tongue, unspecified; E11.40 Type 2 diabetes mellitus with diabetic neuropathy, unspecified; E78.5 Hyperlipidemia, unspecified; E83.42 Hypomagnesemia; E86.0 Dehydration; E86.1 Hypovolemia; E87.5 Hyperkalemia; H40.9 Unspecified glaucoma; N18.32 Chronic kidney disease, stage 3b; E11.22 Type 2 diabetes mellitus with diabetic chronic kidney disease; I27.20 Pulmonary hypertension, unspecified; J44.9 Chronic obstructive pulmonary disease, unspecified; N40.1 Benign prostatic hyperplasia with lower urinary tract symptoms; T44.7X5A Adverse effect of beta-adrenoreceptor antagonists, initial encounter; R00.1 Bradycardia, unspecified; Z79.82 Long term (current) use of aspirin; Z79.899 Other long term (current) drug therapy; Z80.42 Family history of malignant neoplasm of prostate; Z80.51 Family history of malignant neoplasm of kidney; Z83.3 Family history of diabetes mellitus; Z87.891 Personal history of nicotine dependence; Z96.1 Presence of intraocular lens; Z96.651 Presence of right artificial knee joint; R77.8 Other specified abnormalities of plasma proteins; R33.9 Retention of urine, unspecified; Z93.3 Colostomy status
CPT/HCPCS: 36415; 36600; 51798; 71045; 80048; 80053; 81001; 82533; 82805; 83735; 84100; 84443; 84484; 85025; 85610; 93005; 94640; 96365; 96366; 96375; 96376; 99291

== ENCOUNTER → 2021-12-20 | Outpatient (CLI) | payer MEDICARE, OTHER ==
--- NOTE | 2021-12-21 08:16 | US ---
EXAMINATION TYPE: US kidneys/renal and bladder DATE OF EXAM: 12/20/2021 COMPARISON: 07/24/2021 and 09/04/2021 CLINICAL HISTORY: 81-year-old male N17.9 GENNARO. Abnormal labs. Patient has tongue cancer and going thro ugh radiation. Technique: Multiple sonographic images of the kidneys and bladder are obtained. FINDINGS: EXAM MEASUREMENTS: Right Kidney: 12.1 x 5.5 x 5.0 cm Left Kidney: 13.5 x 4.6 x 5.0 cm Right Kidney: lateral hypoechoic structure seen, could be cyst given the presence of through transmis shane = 3.0 x 2.8 x 2.1 cm. Internal echoes could be artifact or debris. Lesion measured 2.9 cm on . Left Kidney: Upper pole cortical cyst measuring 1.8 x 1.5 x 1.6 cm. Versus 1.7 cm on 09/04/2021. Bladder: Anechoic, moderately distended Bilateral Jets not seen IMPRESSION: 1. No hydronephrosis. 2. Redemonstrated probable right renal cyst measuring 3.0 cm. Internal echoes could be artifactual or could represent debris. This measured 2.9 cm on 09/04/2021. Recommendation annual surveillance exam. 3. Benign 1.8 cm upper pole cortical cyst on the left.
== END | disposition home or self-care (01) ==
LOC: RADUSWWP 15:50
PROVIDERS: ATTEND Internal Medicine Nephrology
DX: N17.9 Acute kidney failure, unspecified (principal)
CPT/HCPCS: 76770

== ENCOUNTER → 2022-02-02 | Outpatient (CLI) | payer MEDICARE, OTHER | END | disposition home or self-care (01) | LOC: LABWHC1 11:42 | PROVIDERS: ATTEND Internal Medicine Nephrology | DX: R33.9 Retention of urine, unspecified (principal) | CPT/HCPCS: 36415; 83735 ==

== ENCOUNTER → 2022-04-14 | Outpatient (CLI) | payer MEDICARE, OTHER ==
--- NOTE | 2022-04-16 21:39 | PE ---
EXAMINATION TYPE: PET CT fusion skull to thigh DATE OF EXAM: 04/14/2022 CLINICAL INDICATION:Male, 82 years old with history of C61 PROSTATE CANCER; TECHNIQUE: Following the intravenous administration of 13.8 mCi of F-18 FDG, whole body images are performed from the skull base to the midthigh. Images are reviewed on the computer in the coronal, a xial, and sagittal planes. Reconstructed rotating images are created on independent workstation and reviewed on the computer. A non-contrast CT is performed in conjunction with the PET scan. Glucose level 111 mg/dL COMPARISON: CT 09/04/2021, PET/CT outside 09/02/2021, FINDINGS: Mediastinal SUV mean is 1.6. Hepatic parenchyma SUV mean is 2.2. SKULL BASE AND NECK: No suspicious radiotracer activity. Tongue base CHEST, MEDIASTINUM, AND HILAR REGION: No suspicious radiotracer activity. * Right upper lobe pulmonary mass measuring 2.4 cm Max SUV 1.2, previously 1.1. * No evidence of the mesentery max SUV 2.1 previously 1.6 measuring 9 mm which may be minimally larg er from prior where measured 7 mm ABDOMEN AND PELVIS: No suspicious radiotracer activity. OSSEOUS STRUCTURES: No suspicious radiotracer activity. OTHER CT: Bilateral aphakia thyroid gland is enlarged bilaterally extending into the superior mediast inum. Emphysema changes throughout the lungs. Left lower lung airspace opacities significantly change d from prior. The heart is moderately enlarged for size. Coronary artery and aortic valve leaflet jordana cifications are present. Layering gallstones in the gallbladder lumen. The prostate gland is enlarged measuring up to 5.2 cm. Right lower quadrant ostomy site. Multilevel disc degeneration changes throu ghout the spine. Right renal cyst IMPRESSION: 1. No evidence for abnormal head and neck/tongue base/pharyngeal metabolic activity. 2. Nonspecific enlarging mesenteric lymph node with mildly increased FDG activity from prior measuri ng up to 9 mm. Given this exam was ordered for prostate cancer a Ga-68 PSMA scan may be more specifi c for prostate adenocarcinoma. Consider MRI of the prostate gland as well for further workup for pros tatic adenocarcinoma. 3. No significant change in right upper lobe pulmonary nodule with stable size and metabolic activit y.
== END | disposition home or self-care (01) ==
LOC: RADPETMAIN 09:01
PROVIDERS: ATTEND Otolaryngology
DX: C02.9 Malignant neoplasm of tongue, unspecified (principal); C61 Malignant neoplasm of prostate; R91.1 Solitary pulmonary nodule; R59.0 Localized enlarged lymph nodes
CPT/HCPCS: 78815; A9552

== ENCOUNTER → 2022-10-15 | Outpatient (CLI) | payer MEDICARE, OTHER ==
--- NOTE | 2022-10-23 13:00 | US ---
EXAMINATION TYPE: US arterial LE multi level DATE OF EXAM: 10/15/2022 1:43 PM CLINICAL INDICATION: Male, 82 years old with history of I73.9 PAD; Bilateral lower leg redness and sw elling. Thickened bilateral toe nails. History of: Smoker: Previous Hypertension: Takes medication Diabetic: Yes TIA/CVA: No Previous Vascular Surgery: No CAD: Yes CA: No Vascular Ulcers: No Claudication: No Gangrene: No Doppler Waveforms: Right: Left: Pulse Volume Recording: Pressure Gradients: Right Brachial Pressure: 112 Left Brachial Pressure: 114 Ankle-Brachial Indices: Right: 1.1 Left: 0.8 Toe Brachial Indices: Right: 0.5 Left: 0.6 IMPRESSION: 1. Normal right LATASHA indices TBI indices suggesting [id number] atherosclerotic disease. 2. Mild to moderate left lower extremity atherosclerotic disease.
== END | disposition home or self-care (01) ==
LOC: RADUSWWP 12:59
PROVIDERS: ATTEND Social Worker Clinical
DX: I73.9 Peripheral vascular disease, unspecified (principal)
CPT/HCPCS: 93923